=== PATIENT | female | born 1945 | race Hispanic/Latino ===

== ENCOUNTER 2017-03-08 02:51 | Observation (INO) | payer MEDICARE ==
[2017-03-08 03:03] VITALS: BMI 37.8
--- NOTE | 2017-03-08 03:26 | ED PDOC ---
HPI:STROKE - Time Time: 03:00 - Historian Historian: Patient, Family (augustine ) - Chief Complaint Chief Complaint: Weakness (right arm ), Slurred speech - Onset Date: 03/08/17 Time: 02:45 Onset: Just prior to presenting - Timing Timing: Currently Symptomatic - Notes: Notes:: 71yo female presents to the ED, brought in by daughter, with c/o slurred speech and right arm weakness. Daughter reports patient was last seen normal at 2200 last night when she went to bed. Patient woke up at 0245 with slurred speech and right arm weakness. States she had trouble getting up from toilet due to weakness in arm. Arm weakness has improved but still feels as though her speech is slurred. NIHSS Stroke Scale - Date/Time Evaluation Performed Date Performed: 03/08/17 Time Performed: 03:00 When Was NIHSS Performed: Code Stroke - How Severe is the Stroke Level of Consciousness: 0=Alert LOC to Questions: 0=Both comments correct LOC to commands: 0=Obeys both correctly Best Gaze: 0=Normal Visual: 0=No visual loss Facial: 0=Normal Motor Arm - Left: 0=No drift Motor Arm - Right: 0=No drift Motor Leg - Left: 0=No drift Motor Leg - Right: 0=No drift Limb Ataxia: 0=Absent Sensory: 0=Normal Best Language: 0=No aphasia Dysarthia: 1=Mild to moderate slurring Extinction & Inattention (Neglect): 0=Normal, no object Score: 1 rTPA Inclusion/Exclusion - Refusal of Treatment Patient Refused Treatment: No - Inclusion Criteria for Altepase Patient is 18 years or Older: Yes The Clinical Diagnosis of Ischemic Stroke That is Causing a Potentially Disabling Neurological Deficit: No Time of Onset is Well Established to be Less Than 270 Minute Before Treatment Would Begin: No Risk/Benefit Discussed With Patient/Family Member Present: No Past Medical History Reviewed: Historical Data, Nursing Documentation, Vital Signs Vital Signs: Last Vital Signs Temp 98.2 F 03/08/17 03:00 Pulse 85 03/08/17 03:00 Resp 16 03/08/17 03:00 BP 116/68 03/08/17 03:00 Pulse Ox 100 03/08/17 03:00 - Medical History PMH: Anemia, Asthma, COPD, Diabetes (IDDM poor control ), HTN, Hypercholesterolemia, Chronic Kidney Disease (stage 3), TIA - Surgical History Surgical History: Tonsillectomy (1948) - Family History Family History: States: No Known Family Hx - Immunization History Hx Tetanus Toxoid Vaccination: Yes (2011) - Home Medications Home Medications: Ambulatory Orders Medication Instructions Recorded Allopurinol 300 mg PO HS 01/14/14 Aspirin 81 mg PO HS 01/14/14 Cilostazol 100 mg PO BID 01/14/14 Furosemide [Lasix] 80 mg PO QOTHERDAY 01/14/14 Gabapentin [Neurontin] 300 mg PO QAM 01/14/14 Insulin Human NPH/Reg [HumuLIN 12 - 20 unit SC BID PRN 01/14/14 70/30 (NPH/Reg)] Tramadol Hydrochloride [Tramadol] 100 mg PO Q6H PRN 01/14/14 Albuterol Sulfate [Albuterol 3 ml IH Q8H PRN 10/01/14 Sulfate 2.5mg/3 ml 0.083%] Ascorbic Acid [Vitamin C] 1,000 mg PO DAILY 10/01/14 Brimonidine 0.15% [Alphagan P 1 drop RIGHTEYE BID 10/01/14 0.15% Opht] Calcium Acetate [Phoslo] 1,334 mg PO TID 10/01/14 Clopidogrel [Plavix] 75 mg PO HS 10/01/14 Dorzolamide 2% [Trusopt] 1 drop RIGHTEYE TID 10/01/14 Fish Oil 1 cap PO DAILY 10/01/14 Latanoprost 0.005% Opht [Xalatan 1 drop RIGHTEYE HS 10/01/14 Opht] Midodrine [Proamatine] 10 mg PO TID 10/01/14 Vitamin B Complex2 [B Complex] 1 cap PO DAILY 10/01/14 Acetaminophen [Tylenol Extra 1,000 mg PO Q8H PRN 06/08/15 Strength] Albuterol Sulfate [Ventolin Hfa] 2 puff IH Q6H PRN 06/08/15 Cholecalciferol (Vitamin D3) 5,000 unit PO Q48H 06/08/15 [Vitamin D3] Gabapentin [Neurontin] 600 mg PO HS 06/08/15 Insulin Glargine, Recombinan 60 unit SC HS 06/08/15 [Lantus] Vitamin E 1,000 unit PO DAILY 06/08/15 Atorvastatin [Lipitor] 80 mg PO DAILY #0 tab 06/09/15 ALPRAZolam HALF TABLET [Xanax HALF 0.125 mg PO PRN 09/21/16 TABLET] Metoprolol Succinate [Toprol XL] 50 mg PO DAILY 09/21/16 - Allergies Allergies/Adverse Reactions: Allergies Allergy/AdvReac Type Severity Reaction Status Date / Time pregabalin [From Lyrica] Allergy SWELLING Verified 12/04/16 18:03 Review of Systems ROS Statement: Except As Marked, All Systems Reviewed And Found Negative Neurological: Positive for: Weakness (right arm ), Other (slurred speech ) Physical Exam - Reviewed Nursing Documentation Reviewed: Yes Vital Signs Reviewed: Yes - Physical Exam Appears: Positive for: Well, No Acute Distress Head Exam: Positive for: ATRAUMATIC, NORMAL INSPECTION, NORMOCEPHALIC Skin: Positive for: Normal Color, Warm, Dry Eye Exam: Positive for: Normal appearance, EOMI, PERRL ENT: Positive for: Normal ENT Inspection Neck: Positive for: Normal, Painless ROM, Supple Cardiovascular/Chest: Positive for: Regular Rate, Rhythm. Negative for: Murmur , Tachycardia Respiratory: Positive for: Normal Breath Sounds. Negative for: Wheezing, Respiratory Distress Gastrointestinal/Abdominal: Positive for: Normal Exam, Soft. Negative for: Tenderness Back: Positive for: Normal Inspection. Negative for: L CVA Tenderness, R CVA Tenderness Extremity: Positive for: Normal ROM. Negative for: Deformity, Swelling Neurologic/Psych: Positive for: Alert, recreation facility manager II-XII, Oriented, Other (mild slurred speech ). Negative for: Motor/Sensory Deficits, Mood/Affect, Cerebellar Tests, Gait, Aphasia, Facial Droop - Laboratory Results Result Diagrams: 03/08/17 03:31 03/08/17 03:31 - ECG O2 Sat by Pulse Oximetry: 100 Pulse Ox Interpretation: Normal (RA) Medical Decision Making Medical Decision Makin: Impression: TIA vs. CVA Plan: Type and screen CT head EKG Labs CXR IVF reassess 0320: CT head impression: No acute intracranial findings. 0351: Dr. Inman agrees w/ management plan and will see patient tomorrow. Patient admitted to [facility]. Pt's daughter reports that slurred speech is improving and that it is waxing/waning. Scribe Attestation: Documented by J Luis Barrios acting as a scribe for Antonino Grande MD. Provider Scribe Attestation: All medical record entries made by the Scribe were at my direction and personally dictated by me. I have reviewed the chart and agree that the record accurately reflects my personal performance of the history, physical exam, medical decision making, and the department course for this patient. I have also personally directed, reviewed, and agree with the discharge instructions and disposition. Disposition - Clinical Impression Clinical Impression: Weakness of one side of body - Patient ED Disposition Is Patient to be Admitted: Yes - Disposition Disposition Time: 03:51 Condition: STABLE
[2017-03-08 03:37] LABS: BASO # 0.1 K/uL (0.0-0.2); BASO % 1.3 % (0.0-2.0); EOS # 0.2 K/uL (0.0-0.7); HEMATOCRIT 37.7 % (34.0-47.0); LYMPH # 2.2 K/uL (1.0-4.3); LYMPH % 39.5 % (20.0-40.0); MEAN CELL VOLUME 91.5 fl (81.0-99.0); MEAN CORPUSCULAR HEMOGLOBIN 30.1 pg (27.0-31.0); MEAN CORPUSCULAR HGB CONC 32.9 g/dL (33.0-37.0); MEAN PLATELET VOLUME 8.6 fl (7.2-11.7); MONO # 0.7 K/uL (0.0-0.8); MONO % 13.6 % (0.0-10.0); NEUT # 2.3 K/uL (1.8-7.0); NEUT % 42.6 % (50.0-75.0); NRBC % 0.2 % (0.0-0.0); RED CELL DISTRIBUTION WIDTH 15.4 % (11.5-14.5); WHITE BLOOD COUNT 5.5 K/uL (4.8-10.8)
[2017-03-08 03:59] LABS: CHLORIDE 103 mmol/L (98-107); SODIUM 145 mmol/l (132-148)
[2017-03-08 04:01] LABS: ALB/GLOB RATIO 1.4 (1.0-2.1); AST/SGOT 46 U/L (14-36); BILIRUBIN,TOTAL 0.4 mg/dl (0.2-1.3); BLOOD UREA NITROGEN 57 mg/dl (7-17); CARBON DIOXIDE 29 mmol/L (22-30); CHOLESTEROL 150 mg/dL (0-199); GFR AFRICAN-AMERICAN 25
[2017-03-08 04:02] LABS: ALKALINE PHOSPHATASE 71 U/L (38-126); ALT/SGPT 45 U/L (9-52); CALCIUM 10.6 mg/dL (8.4-10.2); GLUCOSE,RANDOM 123 mg/dL (65-105)
[2017-03-08] MEDS ORDERED: ALBUTEROL SULFATE IH PRN (05:02)
[2017-03-08] MEDS ORDERED: Patient's Own Med (Cholecalciferol (Vitamin D3) [Vitamin D3] 5,000 unit) PO SCH (05:15)
[2017-03-08] MEDS ORDERED: Albuterol HFA 90 mcg/actuation (8 g) INH PRN (05:18)
[2017-03-08 05:20] LABS: PARTIAL THROMBOPLASTIN TIME 26.5 SECONDS (23.3-32.5)
--- NOTE | 2017-03-08 05:30 | CP.PCM.HP ---
History of Present Illness - History of Present Illness History of Present Illness: 70F former smoker with PMHx of CKD stage 3, Anemia, Asthma, COPD, IDDM, HTN, peripheral artery disease (2011 R LE balloon angioplasty, 2012 L LE balloon angioplasty), hypercholesterolemia, glaucoma, L eye blindness, TIA (2002: dizziness, vertigo; 2003: dysarthria) presents to the ED, brought in by daughter , with c/o slurred speech and right arm weakness. Daughter reports patient was last seen normal at 2200 last night when she went to bed. Patient woke up at 0245 with slurred speech and right arm weakness. States she had trouble getting up from toilet due to weakness in arm. Arm weakness has improved but still feels as though her speech is slurred. At evaluation of pt, pt speech is still slurred, daughter reports that is not pt's baseline, admits pt has had previous "strokes" in the past but had no deficits. Denies any chest pain, sob, dizziness , light headness, changes in vision. Pt last saw her vascular doctor about a month ago and everything was ok, and is due to see her delivery stock clerk in March PMHx: CKD stage 3, Anemia, Asthma, COPD, IDDM, HTN, hypercholesterolemia, glaucoma, L eye blindness Past Surgical History: tonsillectomy 1947 Allergies: pregabalin (nausea) Medications: Extensive poly-pharmacy Social History: Previous smoker (.5 PPD x > 35 years), social drinking, denies drug use; lives in an apartment, with daughter; Dr. [facility], [facility]io [place] Present on Admission - Present on Admission Any Indicators Present on Admission: Yes History of Uncontrolled Diabetes: Yes Past Patient History - Past Medical History & Family History Past Medical History?: Yes - Past Social History Smoking Status: Former Smoker - CARDIAC Hx Hypercholesterolemia: Yes Hx Hypertension: Yes - PULMONARY Hx Asthma: Yes Hx Chronic Obstructive Pulmonary Disease (COPD): Yes - NEUROLOGICAL Hx Transient Ischemic Attacks (TIA): Yes - HEENT Hx HEENT Problems: Yes Hx Blind: Yes (left eye 2003) Hx Glaucoma: Yes (right eye) - RENAL Hx Chronic Kidney Disease: Yes (stage 3) - ENDOCRINE/METABOLIC Hx Endocrine Disorders: Yes Hx Diabetes Mellitus Type 2: Yes - HEMATOLOGICAL/ONCOLOGICAL Hx Anemia: Yes - INTEGUMENTARY Hx Dermatological Problems: No - GASTROINTESTINAL Hx Gastrointestinal Disorders: No - GENITOURINARY/GYNECOLOGICAL Hx Genitourinary Disorders: No - PSYCHIATRIC Hx Psychophysiologic Disorder: No Hx Substance Use: No - SURGICAL HISTORY Hx Tonsillectomy: Yes (1947) - ANESTHESIA Hx Anesthesia: Yes Hx Anesthesia Reactions: No Hx Malignant Hyperthermia: No Meds Allergies/Adverse Reactions: Allergies Allergy/AdvReac Type Severity Reaction Status Date / Time pregabalin [From Lyrica] Allergy SWELLING Verified 03/08/17 04:17 Physical Exam - Constitutional Appears: No Acute Distress, Older Than Stated Age - Head Exam Head Exam: NORMOCEPHALIC - ENT Exam ENT Exam: Mucous Membranes Moist - Respiratory Exam Respiratory Exam: Clear to Auscultation Bilateral, NORMAL BREATHING PATTERN. absent: Rhonchi, Wheezes - Cardiovascular Exam Cardiovascular Exam: REGULAR RHYTHM, +S1, +S2 Additional comments: No carotid bruits - GI/Abdominal Exam GI & Abdominal Exam: Normal Bowel Sounds, Soft. absent: Tenderness - Extremities Exam Extremities exam: Negative for: calf tenderness, pedal edema - Neurological Exam Neurological exam: Alert, Oriented x3 Additional comments: Hand wool cleaner equal in both arms Strength testing 5/5 in upper and lower extremity - Additional Findings Additional findings: speech is slurred Results - Vital Signs Recent Vital Signs: Last Vital Signs Temp 98.2 F 03/08/17 03:00 Pulse 85 03/08/17 03:00 Resp 16 03/08/17 03:00 BP 116/68 03/08/17 03:00 Pulse Ox 100 03/08/17 04:13 - Labs Result Diagrams: 03/08/17 03:31 03/08/17 03:31 Assessment & Plan - Assessment and Plan (Free Text) Assessment: 71 y/o female with an extensive medical history being admitted for further management of slurring speech; code stroke. Plan: (1) Slurring of speech -code STROKE -onset unclear, neurologic deficit represents departure from baseline function -still present on exam, moderate speech slurring -neurology consulted (Albaro), telemedicine in ED as well -f/u neurology recommendations -f/u carotid and vertebral duplex -CT Head negative -pt already on asa, plavix, lipitor -f/u nursing ED swallow eval -PT eval and treat ordered, OT eval, speech eval -f/u their recommendations -neuro checks q2 -hx of past TIA (2) IDDM (insulin dependent diabetes mellitus) -uncontrolled -sliding scale started -40units am dose resumed -f/u hba1c -lipid studies reviewed, statin therapy on going (3) Peripheral arterial disease -history of PVD -s/p 2011 R balloon angioplasty -s/p 2012 L balloon angioplasty -c/w cilostazol (4) CKD (chronic kidney disease) stage 3, GFR 30-59 ml/min -stable -f/u serum creatinine (5) HTN (hypertension) Home meds resumed Monitor (6) COPD (chronic obstructive pulmonary disease) -home meds resumed -stable, asymptomatic (7) Hypertriglyceride (156, per LIPID panel 03/08/17) c/w lipitor 40 mg cholesterol wnl 150 HDL 69 LDL 50 (8) Low back pain -likely arthritic and obesity related -Resume neurotin -allergic to pregabalin (9) Gout resume allopurinol (10) Prophylactic measure -DVT: Lovenox 40mg daily -GI ppx not indicated Diet- NPO for now, pending ED nurse swallow eval finding, if pt passes diabetic heart healthy
[2017-03-08] MEDS ORDERED: Glucagon Recombinant 1 mg Inj IM PRN (05:32)
[2017-03-08] MEDS ORDERED: Dextrose 50% SYRINGE Inj (50 ml) IV PRN (05:32)
[2017-03-08] MEDS ORDERED: Sodium Chloride 0.9% 1,000 ML IV SCH (06:30)
[2017-03-08] MEDS ORDERED: Insulin Regular 100 units/ml SC SCH (07:30)
--- NOTE | 2017-03-08 07:44 | CARD ---
APPROVED REPORT EKG Measurement Heart [id number] CT 208P64 [id number] <Conclusion> Sinus rhythm Nonspecific ST and T wave abnormality Abnormal ECG
[2017-03-08] MEDS ORDERED: CALCIUM ACETATE 1334 MG PO SCH (09:00)
[2017-03-08] MEDS ORDERED: Cilostazol 100 mg Tab UD PO SCH (09:00)
[2017-03-08] MEDS ORDERED: Omega-3-Acid Ethyl Esters 1 GM Cap PO SCH (09:00)
[2017-03-08] MEDS ORDERED: Patient's Own Med (Brimonidine 0.15% [Alphagan P 0.15% Opht] 1 DROP) RIGHTEYE SCH (09:00)
[2017-03-08] MEDS ORDERED: Multivitamin Vitamin B Complex (Nephro-Vite) Tab PO SCH (09:00)
[2017-03-08] MEDS ORDERED: VITAMIN B COMPLEX PO SCH (09:00)
[2017-03-08] MEDS ORDERED: MIDODRINE 10 MG PO SCH (09:00)
[2017-03-08] MEDS ORDERED: Brimonidine 0.2% 50 DROP/5 ML BOTTLE OD SCH (09:00)
[2017-03-08] MEDS ORDERED: Insulin Detemir 100 Units/ml Inj SC SCH (09:00)
[2017-03-08] MEDS ORDERED: FISH OIL PO SCH (09:00)
[2017-03-08] MEDS ORDERED: VITAMIN E 1000 UNIT PO SCH (09:00)
[2017-03-08] MEDS ORDERED: Dorzolamide 2% Ophth Soln OD SCH (09:00)
[2017-03-08] MEDS ORDERED: INSULIN GLARGINE RECOMBINA SC SCH (09:00)
[2017-03-08] MEDS ORDERED: Enoxaparin 30 mg Syringe SC SCH (09:00)
--- NOTE | 2017-03-08 09:07 | CT ---
PROCEDURE: CT HEAD WITHOUT CONTRAST. HISTORY: code stroke COMPARISON: None available. TECHNIQUE: Axial computed tomography images were obtained through the head/brain without intravenous contrast. Radiation dose: Total exam DLP = 840 mGy-cm. This CT exam was performed using one or more of the following dose reduction techniques: Automated exposure control, adjustment of the mA and/or kV according to patient size, and/or use of iterative reconstruction technique. FINDINGS: HEMORRHAGE: No intracranial hemorrhage. BRAIN: No mass effect or edema. Old right basal ganglia lacunar infarct. Old left centrum semiovale lacunar infarct. VENTRICLES: Unremarkable. No hydrocephalus. CALVARIUM: Unremarkable. PARANASAL SINUSES: Unremarkable as visualized. No significant inflammatory changes. MASTOID AIR CELLS: Unremarkable as visualized. No inflammatory changes. OTHER FINDINGS: None. IMPRESSION: No intracranial hemorrhage.
--- NOTE | 2017-03-08 10:18 | RAD ---
HISTORY: R sided deficits COMPARISON: No prior. FINDINGS: LUNGS: No active pulmonary disease. PLEURA: No significant pleural effusion identified, no pneumothorax apparent. CARDIOVASCULAR: Normal. OSSEOUS STRUCTURES: No significant abnormalities. VISUALIZED UPPER ABDOMEN: Normal. OTHER FINDINGS: None. IMPRESSION: No active disease.
--- NOTE | 2017-03-08 10:42 | US ---
PROCEDURE: Carotid vertebral duplex sonography HISTORY: cva workup COMPARISON: 06/08/2015. TECHNIQUE: Grayscale, color Doppler and spectral Doppler assessment of the carotid system bilaterally. This includes common carotid, internal carotid arteries Vertebral artery assessment with respect to direction of flow (antegrade or retrograde) FINDINGS: RIGHT carotid system: Assessment of plaque: Heterogeneous plaque formation. Peak systolic ICA velocity: 131.9 cm/sec End-diastolic velocity: 21.5 cm/sec ICA/CCA ratio: 1.7 Vertebral artery flow: Antegrade LEFT carotid system: Assessment of plaque: Heterogeneous plaque formation. Peak systolic ICA velocity: 144.5 cm/sec End-diastolic velocity: 18.0 cm/sec ICA/CCA ratio: 1.6 Vertebral artery flow: Antegrade IMPRESSION: Right ICA degree of stenosis: 50- 69%. Progressive disease right ICA. Left ICA degree of stenosis: 50- 69%. Progressive disease left ICA. Reference Internal Carotid Artery (ICA) Peak Systolic Velocity (PSV) for above: 1. Less than 50% stenosis less than 125 cm/s peak systolic velocity 2. 50-69% stenosis 125-230cm/s peak systolic velocity 3. Greater than 70% but less than near occlusion greater than 230 cm/s peak systolic velocity
[2017-03-08 12:45] VITALS: O2SAT 97
--- NOTE | 2017-03-08 14:05 | CON ---
DATE: 03/08/2017 CHIEF COMPLAINT: Slurred speech, transient right-sided weakness. HISTORY OF PRESENT ILLNESS: This is a 71-year-old woman who is well known to me from the past in 201 5 with a history of left knott radiata infarct with some mild residual right-sided weakness and slow ing, history of uncontrolled diabetes with last elevated A1c of 11.8. Currently has been in the 7s. Chronic kidney disease stage III, anemia, COPD, asthma, hypertension, peripheral arterial disease on cilostazol, hypercholesterolemia, glaucoma, left eye blindness, history of transient ischemic attack, who was brought in by her daughter because she was noticed to have some slurred speech and right arm weakness and difficulty getting up from the toilet due to right arm weakness. Now her right arm wea kness has improved and slurring of her speech has improved, but slightly dysarthric. I think her spe ech is more pressured rather than dysarthric at this time. There is no pronator drift seen. She has residual right finger tap slowing from prior CVA. She is on cilostazol, aspirin and Plavix. I tor mmend her being just on Plavix since cilostazol is for peripheral vascular disease and Plavix is for stroke prevention. No acute events overnight. MRI of the brain pending. Carotid Doppler showed 50% -69% bilateral ICA stenosis. She has a history of right lower extremity balloon angioplasty as well as left lower extremity balloon angioplasty in 2011 and 2012. No headaches at this time. No change in any of her weakness at this time. PAST MEDICAL HISTORY: Chronic kidney disease stage III, anemia, status post chronic obstructive pulm onary disease, insulin-dependent diabetes mellitus, hypertension, hypercholesterolemia, glaucoma, lef t eye blindness, history left coronary artery infarct in 2014. PAST SURGICAL HISTORY: Tonsillectomy in 1948. ALLERGIES: ALLERGIC TO PREGABALIN CAUSING NAUSEA. HOME MEDICATIONS: Reviewed via nurse's reconciliation sheet. SOCIAL HISTORY: She is a previous smoker, smoked half pack per day for more than 35 years. Social d shante. Denies any illicit drug use. Lives in apartment with daughter. REVIEW OF SYSTEMS: A 14-point review of systems is negative except as in the HPI. PHYSICAL EXAMINATION: VITAL SIGNS: Temperature 98.4, pulse rate of 77, blood pressure 136/71, respiratory rate 14, and oxy gen saturation 97% on room air. GENERAL: The patient is sitting up in bed in no acute distress. HEENT: Atraumatic, normocephalic. PERRLA. Extraocular muscles intact. NECK: Supple, no JVD, no adenopathy noted. LUNGS: Clear to auscultation. No adventitious sounds. HEART: S1, S2, normal rate and rhythm. No murmurs, rubs, or gallops. ABDOMEN: Soft, nontender, nondistended. Bowel sounds are present. EXTREMITIES: No clubbing, no cyanosis. Peripheral pulses 2+ bilaterally. NEUROLOGIC: The patient is alert, oriented to person, place, month and year. Speech is slightly dys arthric, but no aphasia noted. MOTOR EXAM: No pronator drift. tone is slightly increased throughout, has decreased right epralta d finger tap compared to the left. Moves all extremities equally. Strength is 5/5 in both upper and lower extremities. Toes are downgoing bilaterally. SENSORY: Decreased light touch and pinprick up to the calves bilaterally. Diffuse vibration of the toes. Proprioception intact bilaterally. GAIT: Deferred for now. LABORATORY DATA: Sodium is 145, potassium 4, chloride 102, carbon dioxide 29, BUN of 57, creatinine 2.3, random glucose of 123, A1c is 7.8, triglycerides 156. ASSESSMENT AND PLAN: This is a 71-year-old woman with history of chronic kidney disease stage III, a nemia, asthma, chronic obstructive pulmonary disease, insulin-dependent diabetes mellitus, uncontroll ed, recent A1c 7.8, hypertension, peripheral vascular disease, left eye blindness, history of left co luis radiata infarct in 2015, came in with some transient right arm weakness and slurred speech, whic h is currently back to baseline. She still has some very mild dysarthria. At this time, recommend: 1. Instead of aspirin, just continue her on Plavix 75 mg for stroke prevention, in addition she can be on her cilostazol for peripheral vascular disease and continue with Lipitor 80 mg p.o. daily for 2 1 days for dyslipidemia and can bring it down to 40 eventually. 2. Diabetic education given. Keep her blood sugar between 140-180 and advise diabetic diet and exer cise. 3. Follow with nephrology in terms of her BUN and creatinine elevation. 4. Get physical therapy evaluation. She can follow up with me in the office. She already has an ap pointment. Get physical therapy evaluation. No further neurologic workup needed at this time. She just needs an MRI of the brain which is pending and can follow up in the office. Once again, thank you for this consult. Alton Inman MD cc: [id number] TT: 03/08/2017 14:04:30 Confirmation # [id number] Dictation # [id number] meghan
--- NOTE | 2017-03-08 14:35 | MRI ---
PROCEDURE: MRI BRAIN WITHOUT CONTRAST HISTORY: CVA COMPARISON: Noncontrast head CT from 03/08/2017 TECHNIQUE: Multiplanar, multisequence MR images of the brain were obtained without intravenous contrast enhancement. FINDINGS: HEMORRHAGE: No acute intracranial hemorrhage. DWI: There is an acute infarction in the left posterior insular cortex. There are small foci of acute infarction in the posterior parietal subcortical white matter. BRAIN PARENCHYMA: There is an old hemorrhagic infarction in the right basal ganglia. There is also an old infarction in the right anterior knott radiata with ex vacuo dilatation of the right lateral ventricle There is also an old infarction in the left basal ganglia. There are mild chronic microangiopathic changes. There is no mass, mass effect or abnormal extra-axial fluid collection. The midline sagittal structures are normal. VENTRICLES: There is moderate age-related global parenchymal volume loss and proportionate enlargement of the ventricles and cortical sulci. CRANIUM: There is normal bone marrow signal pattern. ORBITS: The right globe is normal. 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 PARANASAL SINUSES/MASTOIDS: Predominantly clear. VASCULAR SYSTEM: There are normal signal voids in the larger intracranial arteries. OTHER FINDINGS: None. IMPRESSION: 1. Acute infarction in the left posterior insular cortex and small foci of acute infarction in the posterior parietal subcortical white matter. 2. Old infarctions in the right anterior knott radiata and left basal ganglia. Old hemorrhagic infarction in the right basal ganglia. 3. Mild chronic microangiopathic changes and moderate age-related global parenchymal volume loss. Critical findings were discussed with BRANDON Walls on 03/08/2017 at 2:30 p.m.
[2017-03-08 16:21] VITALS: BP 115/71; PULSE 85; RESP 18; TEMP 98.6
--- NOTE | 2017-03-08 17:14 | CP.PCM.DIS ---
Provider - Provider Date of Admission: 03/08/17 03:57 Attending physician: Peace Madrid MD Primary care physician: Isadora Miranda MD Consults: Dr Inman(Neurology) Time Spent in preparation of Discharge (in minutes): 30 Hospital Course - Lab Results Lab Results: Most Recent Lab Values WBC 5.5 K/uL (4.8-10.8) 03/08/17 03:31 RBC 4.12 Mil/uL (3.80-5.20) 03/08/17 03:31 Hgb 12.4 g/dL (12.0-16.0) 03/08/17 03:31 Hct 37.7 % (34.0-47.0) 03/08/17 03:31 MCV 91.5 fl (81.0-99.0) 03/08/17 03:31 MCH 30.1 pg (27.0-31.0) 03/08/17 03:31 MCHC 32.9 g/dL (33.0-37.0) L 03/08/17 03:31 RDW 15.4 % (11.5-14.5) H 03/08/17 03:31 Plt Count 220 K/uL (130-400) 03/08/17 03:31 MPV 8.6 fl (7.2-11.7) 03/08/17 03:31 Neut % (Auto) 42.6 % (50.0-75.0) L 03/08/17 03:31 Lymph % (Auto) 39.5 % (20.0-40.0) 03/08/17 03:31 [place] % (Auto) 13.6 % (0.0-10.0) H 03/08/17 03:31 Eos % (Auto) 3.0 % (0.0-4.0) 03/08/17 03:31 Baso % (Auto) 1.3 % (0.0-2.0) 03/08/17 03:31 Neut # 2.3 K/uL (1.8-7.0) 03/08/17 03:31 Lymph # 2.2 K/uL (1.0-4.3) 03/08/17 03:31 [place] # 0.7 K/uL (0.0-0.8) 03/08/17 03:31 Eos # 0.2 K/uL (0.0-0.7) 03/08/17 03:31 Baso # 0.1 K/uL (0.0-0.2) 03/08/17 03:31 PT 9.5 SECONDS (9.6-11.2) L 03/08/17 03:31 INR 0.91 (0.92-1.08) L 03/08/17 03:31 APTT 26.5 SECONDS (23.3-32.5) 03/08/17 03:31 Sodium 145 mmol/l (132-148) 03/08/17 03:31 Potassium 4.0 MMOL/L (3.6-5.0) 03/08/17 03:31 Chloride 103 mmol/L (98-107) 03/08/17 03:31 Carbon Dioxide 29 mmol/L (22-30) 03/08/17 03:31 Anion Gap 17 (10-20) 03/08/17 03:31 BUN 57 mg/dl (7-17) H 03/08/17 03:31 Creatinine 2.3 mg/dL (0.7-1.2) H 03/08/17 03:31 Est GFR ( Amer) 25 03/08/17 03:31 Est GFR (Non-Af Amer) 21 03/08/17 03:31 Random Glucose 123 mg/dL (65-105) H 03/08/17 03:31 Hemoglobin A1c 7.8 % (4.2-6.5) H D 03/08/17 03:31 Calcium 10.6 mg/dL (8.4-10.2) H 03/08/17 03:31 Total Bilirubin 0.4 mg/dl (0.2-1.3) 03/08/17 03:31 AST 46 U/L (14-36) H D 03/08/17 03:31 ALT 45 U/L (9-52) 03/08/17 03:31 Alkaline Phosphatase 71 U/L (38-126) 03/08/17 03:31 Troponin I < 0.0120 ng/mL (0.00-0.120) 03/08/17 03:31 Total Protein 8.0 G/DL (6.3-8.2) 03/08/17 03:31 Albumin 4.6 g/dL (3.5-5.0) 03/08/17 03:31 Globulin 3.4 gm/dL (2.2-3.9) 03/08/17 03:31 Albumin/Globulin Ratio 1.4 (1.0-2.1) 03/08/17 03:31 Triglycerides 156 mg/DL (0-149) H D 03/08/17 03:31 Cholesterol 150 mg/dL (0-199) 03/08/17 03:31 LDL Cholesterol Direct 50 mg/dL (0-129) 03/08/17 03:31 HDL Cholesterol 69 MG/DL (30-70) 03/08/17 03:31 Blood Type A POSITIVE 03/08/17 03:31 Blood Type Confirm A POSITIVE 03/08/17 06: Antibody Screen Negative 03/08/17 03:31 BBK History Checked No verified bt 03/08/17 03:31 - Hospital Course Hospital Course: 70F former smoker with PMHx of CKD stage 3, Anemia, Asthma, COPD, IDDM, HTN, peripheral artery disease (2011 R LE balloon angioplasty, 2012 L LE balloon angioplasty), hypercholesterolemia, glaucoma, L eye blindness, TIA (2002: dizziness, vertigo; 2003: dysarthria) presents to the ED, brought in by daughter , with c/o slurred speech and right arm weakness. WHen patient was evalauted at ED she has mild dysartria but no muscle weakness noticed. Patient head CT was WNL but brain MRI showed acute infarct(Please see full report). She was evaluated by Neurology(Dr Inman) who was made aware of the MRI results and recommended patient could be DC home and F/U with him as outpatient. She will also f/u with PMD(Dr Miranda) and Cardiology(Dr Monk) DC meds: Allopurinol 300 mg PO HS Cilostazol 100 mg PO BID Furosemide [Lasix] 80 mg PO QOTHERDAY Gabapentin [Neurontin] 300 mg PO QAM Insulin Human NPH/Reg [HumuLIN 12 - 20 unit SC BID PRN 70/30 (NPH/Reg)] Albuterol Sulfate [Albuterol 3 ml IH Q8H PRN Sulfate 2.5mg/3 ml 0.083%] Ascorbic Acid [Vitamin C] 1,000 mg PO DAILY Brimonidine 0.15% [Alphagan P 1 drop RIGHTEYE BID 0.15% Opht] Calcium Acetate [Phoslo] 1,334 mg PO TID Clopidogrel [Plavix] 75 mg PO HS Dorzolamide 2% [Trusopt] 1 drop RIGHTEYE TID Fish Oil 1 cap PO DAILY Latanoprost 0.005% Opht [Xalatan 1 drop RIGHTEYE HS Opht] Midodrine [Proamatine] 10 mg PO TID Vitamin B Complex2 [B Complex] 1 cap PO DAILY Acetaminophen [Tylenol Extra 1,000 mg PO Q8H PRN Strength] Albuterol Sulfate [Ventolin Hfa] 2 puff IH Q6H PRN Cholecalciferol (Vitamin D3) 5,000 unit PO Q48H [Vitamin D3] Gabapentin [Neurontin] 600 mg PO HS 0 Insulin Glargine, Recombinan 60 unit SC HS [Lantus] Vitamin E 1,000 unit PO DAILY Atorvastatin [Lipitor] 80 mg PO DAILY x 21 days. Can be decrease to 40mg daily after ALPRAZolam HALF TABLET [Xanax HALF 0.125 mg PO PRN Metoprolol Succinate [Toprol XL] 50 mg PO DAILY Discharge Exam - Head Exam Head Exam: NORMOCEPHALIC - Eye Exam Eye Exam: PERRL (R/eye. Left eye blindness) - ENT Exam ENT Exam: Mucous Membranes Moist - Respiratory Exam Respiratory Exam: Clear to PA & Lateral, NORMAL BREATHING PATTERN - Cardiovascular Exam Cardiovascular Exam: REGULAR RHYTHM, +S1, +S2. absent: Gallop - GI/Abdominal Exam GI & Abdominal Exam: Unremarkable. absent: Distended - Neurological Exam Neurological exam: Alert, Oriented x3 Additional comments: Dysarthria: mild. No motor impairment in Upper or Lower ext at this time. - Psychiatric Exam Psychiatric exam: Normal Affect, Normal Mood - Skin Skin Exam: Normal Color, Warm Discharge Plan - Follow Up Plan Condition: STABLE Disposition: HOME/ ROUTINE Instructions: Ischemic Stroke (DC) Additional Instructions: F/U with Dr. Miranda at [facility] within 1 week. F/U with Neurologist recommended F/U with Natural Science Manager dr. Monk. if any worsening of symptoms return to ED. Referrals: Isadora Miranda MD [Primary Care Provider] - Alton Inman MD [Staff Provider] -
[2017-03-08] MEDS ORDERED: ASPIRIN 81 MG PO SCH (22:00)
[2017-03-08] MEDS ORDERED: Latanoprost 0.005% Opht SOUTION OD SCH (22:00)
[2017-03-08] MEDS ORDERED: ALLOPURINOL 300 MG PO SCH (22:00)
== END 2017-03-08 16:59 | disposition home or self-care (01) ==
LOC: H.ER 02:51 → H.ERHOLD 03:57
PROVIDERS: ADMIT Family Medicine Geriatric Medicine; ATTEND Family Medicine Geriatric Medicine
DX: I63.9 Cerebral infarction, unspecified (principal); I69.322 Dysarthria following cerebral infarction; I69.351 Hemiplegia and hemiparesis following cerebral infarction affecting right dominant side; E11.22 Type 2 diabetes mellitus with diabetic chronic kidney disease; I12.9 Hypertensive chronic kidney disease with stage 1 through stage 4 chronic kidney disease, or unspecified chronic kidney disease; N18.3 Chronic kidney disease, stage 3 (moderate); Z79.4 Long term (current) use of insulin; I73.9 Peripheral vascular disease, unspecified; J44.9 Chronic obstructive pulmonary disease, unspecified; Z87.891 Personal history of nicotine dependence; D64.9 Anemia, unspecified; E78.00 Pure hypercholesterolemia, unspecified; H40.9 Unspecified glaucoma; H54.42 Blindness, left eye, normal vision right eye; E11.65 Type 2 diabetes mellitus with hyperglycemia
CPT/HCPCS: 70450; 70551; 71010; 80053; 80061; 82948; 83036; 84484; 85025; 85610; 85730; 86850; 86900; 92526; 92610; 93005; 93880; 97161; 99285; G0378; G8978; G8979; G8980; G8996; G8997; G8998; J7040

== ENCOUNTER 2017-03-10 09:22 | Inpatient (IN) | payer MEDICARE ==
[2017-03-10 09:35] VITALS: BMI 37.8
[2017-03-10 09:48] LABS: BASO # 0.1 K/uL (0.0-0.2); BASO % 0.7 % (0.0-2.0); EOS # 0.1 K/uL (0.0-0.7); EOS % 0.9 % (0.0-4.0); HEMATOCRIT 38.8 % (34.0-47.0); LYMPH # 2.6 K/uL (1.0-4.3); MEAN CELL VOLUME 91.9 fl (81.0-99.0); MEAN CORPUSCULAR HEMOGLOBIN 29.5 pg (27.0-31.0); MEAN CORPUSCULAR HGB CONC 32.1 g/dL (33.0-37.0); MEAN PLATELET VOLUME 8.3 fl (7.2-11.7); MONO # 0.9 K/uL (0.0-0.8); NEUT # 9.4 K/uL (1.8-7.0); NEUT % 71.4 % (50.0-75.0); RED CELL DISTRIBUTION WIDTH 15.7 % (11.5-14.5); WHITE BLOOD COUNT 13.1 K/uL (4.8-10.8)
--- NOTE | 2017-03-10 09:51 | CT ---
PROCEDURE: CT HEAD WITHOUT CONTRAST. HISTORY: fall weakness COMPARISON: 03/08/2017 TECHNIQUE: Axial computed tomography images were obtained through the head/brain without intravenous contrast. Radiation dose: Total exam DLP = 862.03 mGy-cm. This CT exam was performed using one or more of the following dose reduction techniques: Automated exposure control, adjustment of the mA and/or kV according to patient size, and/or use of iterative reconstruction technique. FINDINGS: HEMORRHAGE: No intracranial hemorrhage. BRAIN: No intracranial mass. Acute infarct left frontal with sparing overlying cortex. This extends into the left knott radiata. Small old left thalamic lacune. Old right basal ganglia infarct extending into right knott radiata. Unchanged over multiple prior examinations. VENTRICLES: No hydrocephalus. Mild ex vacuo dilatation of the frontal horn right lateral ventricle secondary to the old right knott radiata infarct. CALVARIUM: Unremarkable. PARANASAL SINUSES: Unremarkable as visualized. No significant inflammatory changes. MASTOID AIR CELLS: Unremarkable as visualized. No inflammatory changes. OTHER FINDINGS: None. IMPRESSION: Probable acute left frontal infarct extending into left coronal radiata. Sparing of overlying cortex is noted. Old left thalamic lacune. Old right basal ganglia infarct extending into right knott radiata with ex vacuo dilatation of frontal horn, right lateral ventricle. No acute intracranial hemorrhage. The findings this examination were discussed by telephone with Dr. Fraser at 9:47 a.m. on 03/10/2017.
[2017-03-10 09:57] LABS: ALB/GLOB RATIO 1.4 (1.0-2.1); BILIRUBIN,TOTAL 0.5 mg/dl (0.2-1.3); CALCIUM 10.4 mg/dL (8.4-10.2); POTASSIUM 3.7 MMOL/L (3.6-5.0); TOTAL PROTEIN 7.6 G/DL (6.3-8.2)
[2017-03-10 10:07] LABS: TROPONIN I 0.02 ng/mL (0.00-0.120)
--- NOTE | 2017-03-10 10:34 | RAD ---
HISTORY: code stroke COMPARISON: 03/08/2017 FINDINGS: LUNGS: No active pulmonary disease. PLEURA: No significant pleural effusion identified, no pneumothorax apparent. CARDIOVASCULAR: Normal. OSSEOUS STRUCTURES: No significant abnormalities. VISUALIZED UPPER ABDOMEN: Normal. OTHER FINDINGS: None. IMPRESSION: No active disease.
--- NOTE | 2017-03-10 11:00 | ED PDOC ---
HPI:STROKE - Historian Historian: Patient, Family, EMS (According to EMS, patient with h/o CVA with right sided weakness fell this morning and family felt that she is not safe at home. Patient was discharged home from the ER after she had her first episode of weakness. She was discharged after MRI of brain was done. ) - Chief Complaint Chief Complaint: Weakness NIHSS Stroke Scale - Date/Time Evaluation Performed When Was NIHSS Performed: Baseline - How Severe is the Stroke Level of Consciousness: 0=Alert LOC to Questions: 0=Both comments correct LOC to commands: 0=Obeys both correctly Best Gaze: 0=Normal Visual: 0=No visual loss Facial: 2=Partial (lower face paralysis) Motor Arm - Left: 0=No drift Motor Arm - Right: 1=Drift noted before 10 sec Motor Leg - Left: 0=No drift Motor Leg - Right: 1=Drift before 5 sec Limb Ataxia: 0=Absent Sensory: 0=Normal Best Language: 1=Mild to moderate aphasia Dysarthia: 2=Severe, near unintelligible or worse Extinction & Inattention (Neglect): 0=Normal, no object Score: 7 rTPA Inclusion/Exclusion - Refusal of Treatment Patient Refused Treatment: No - Inclusion Criteria for Altepase Patient is 18 years or Older: Yes The Clinical Diagnosis of Ischemic Stroke That is Causing a Potentially Disabling Neurological Deficit: Yes Time of Onset is Well Established to be Less Than 270 Minute Before Treatment Would Begin: Yes Risk/Benefit Discussed With Patient/Family Member Present: Yes - Exclusion Criteria for Altepase Uncontrolled Hypertension at Time of Treatment (Systolic BP above 185 or Diastolic BP above 110 mmHg): No Active Internal Bleeding: No Known Bleeding Diathesis Including but Not Limited to: Platelets Below 100,000/ mm,PTT Above 40 sec After Heparin Use, Current Use of Oral Anitcoagulant With INR Greater Than 1.7 or PT Greater Than 15 secs: No Evidence of an Intracranial Hemorrhage: No Evidence of Major Acute Infarct With Signs Greater Than 1/3 MCA Territory: No Suspicion of Subarachnoid Hemorrhage on Pretreatment Evaluation Even if CT Head Negative For Hemorrhage: No - Warning to TPA With Conditions Following Conditions Weighed Against Anticipated Benefit: No Additional Condition (For 3-4.5 Hour Window): Prior Stroke and Diabetes Past Medical History Reviewed: Historical Data, Nursing Documentation, Vital Signs Vital Signs: Last Vital Signs Temp Pulse 82 03/10/17 10:22 Resp 14 03/10/17 10:22 BP 160/87 H 03/10/17 10:22 Pulse Ox 98 03/10/17 10:22 - Medical History PMH: Anemia, Asthma, COPD, Diabetes (IDDM poor control ), HTN, Hypercholesterolemia, Chronic Kidney Disease (stage 3), TIA - Surgical History Surgical History: Tonsillectomy (1948) - Family History Family History: States: Unknown Family Hx - Immunization History Hx Tetanus Toxoid Vaccination: Yes (2011) - Home Medications Home Medications: Ambulatory Orders Medication Instructions Recorded Cilostazol 100 mg PO BID 01/14/14 Furosemide [Lasix] 80 mg PO Q72H 01/14/14 Ascorbic Acid [Vitamin C] 1,000 mg PO DAILY 10/01/14 Brimonidine 0.15% [Alphagan P 1 drop RIGHTEYE TID 10/01/14 0.15% Opht] Clopidogrel [Plavix] 75 mg PO HS 10/01/14 Dorzolamide 2% [Trusopt] 1 drop RIGHTEYE TID 10/01/14 Latanoprost 0.005% Opht [Xalatan 1 drop RIGHTEYE HS 10/01/14 Opht] Midodrine [Proamatine] 10 mg PO TID 10/01/14 Cholecalciferol (Vitamin D3) 5,000 unit PO Q48H 06/08/15 [Vitamin D3] Cetirizine HCl [Zyrtec] 10 mg PO HS 03/08/17 Gabapentin [Neurontin] 300 mg PO TID 03/08/17 Insulin Glargine, Recombina 60 units SC QAM 03/08/17 [Lantus] Metoprolol Tartrate [Lopressor] 50 mg PO Q12 03/08/17 Acetaminophen [Tylenol Extra 1,000 mg PO Q8H PRN 03/10/17 Strength] Albuterol HFA [Ventolin HFA 90 2 puff IH Q4H PRN 03/10/17 mcg/actuation (8 g)] Allopurinol [Zyloprim] 300 mg PO HS 03/10/17 Alprazolam [Xanax] 0.25 mg PO HS 03/10/17 Aspirin [Ecotrin] 81 mg PO DAILY 03/10/17 Atorvastatin [Lipitor] 80 mg PO HS 03/10/17 Biotin [Biotin] 1 tab PO DAILY 03/10/17 Calcium Acetate [Phoslo] 1,334 mg PO WM 03/10/17 Ferrous Sulfate [Feosol] 325 mg PO DAILY 03/10/17 Insulin Lispro [humALOG] 10 unit SC BRK 03/10/17 Insulin Lispro [humALOG] 14 unit SC ACL 03/10/17 Insulin Lispro [humALOG] 16 unit SC DIN 03/10/17 Ubidecarenone [Coenzyme Q10] 400 mg PO DAILY 03/10/17 Vitamin B Complex [Super B-50 1 cap PO DAILY 03/10/17 Complex] Vitamin E [Vitamin E] 1,000 unit PO DAILY 03/10/17 traMADol [Ultram] 50 mg PO Q6H PRN 03/10/17 - Allergies Allergies/Adverse Reactions: Allergies Allergy/AdvReac Type Severity Reaction Status Date / Time pregabalin [From Lyrica] Allergy SWELLING Verified 03/08/17 04:17 Review of Systems ROS Statement: Except As Marked, All Systems Reviewed And Found Negative Constitutional: Negative for: Fever Gastrointestinal: Negative for: Nausea, Vomiting Musculoskeletal: Negative for: Arm Pain, Leg Pain Neurological: Positive for: Weakness, Incoordination, Change in Speech. Negative for: Seizures, Headache, Other Physical Exam - Reviewed Nursing Documentation Reviewed: Yes Vital Signs Reviewed: Yes - Physical Exam Appears: Positive for: Well, Non-toxic, No Acute Distress Head Exam: Positive for: ATRAUMATIC, NORMAL INSPECTION, NORMOCEPHALIC Skin: Positive for: Normal Color, Warm, DRY Eye Exam: Positive for: EOMI, Normal appearance, PERRL ENT: Positive for: Normal ENT Inspection Neck: Positive for: Normal, Painless ROM Cardiovascular/Chest: Positive for: Regular Rate, Rhythm Respiratory: Positive for: CNT, Normal Breath Sounds Gastrointestinal/Abdominal: Positive for: Normal Exam, Bowel Sounds, Soft Back: Positive for: Normal Inspection Extremity: Positive for: Normal ROM Neurologic/Psych: Positive for: Alert, Oriented, Aphasia. Negative for: paver installer II- XII - Laboratory Results Result Diagrams: 03/10/17 09:42 03/10/17 09:42 - ECG O2 Sat by Pulse Oximetry: 98 Medical Decision Making Medical Decision Makin:48a - Case d/w Dr. Inman. CT findings reviewed. Feels that findings are consistent with her CVA from 2 days ago. NO Acute intervention at present. case d/w FP resident for admission given the need for PT to be started and continued. Since she has been home she has not been contacted by PT yet. Disposition - Clinical Impression Clinical Impression: Weakness due to cerebrovascular accident - Patient ED Disposition Is Patient to be Admitted: Yes Doctor Will See Patient In The: Hospital - Disposition Disposition: Transfer of Care Disposition Time: 11:45 Instructions: Weakness (ED) - POA Present On Arrival: None
[2017-03-10] MEDS ORDERED: Dextrose 50% SYRINGE Inj (50 ml) IV PRN (15:15)
[2017-03-10] MEDS ORDERED: Glucagon Recombinant 1 mg Inj IM PRN (15:15)
--- NOTE | 2017-03-10 16:03 | CP.PCM.HP ---
History of Present Illness - History of Present Illness History of Present Illness: 71 yr old F brought into [facility] ED by EMS after a fall at home at 7:30am today, daughter was with her at the time, denies any LOC or trauma to head and states she tried helping her mom up from the floor for 1 hr with no success as pt is very weak s/p recent discharge from [facility] on 03/08/17 for CVA . Daughter reports she checked pt's blood sugar and it was 51 mg/dL, she has decreased appetite x 3 days. Denies chest pain, SOB, nausea, vomiting, diarrhea, dizziness or changes in vision. Patient is a former smoker with a PMHx of CKD stage 3, Anemia , Asthma, COPD, IDDM, HTN, peripheral artery disease (2011 R LE balloon angioplasty, 2012 L LE balloon angioplasty), hypercholesterolemia, glaucoma, L eye blindness, TIA (2002: dizziness, vertigo; 2003: dysarthria). Since her discharge from [facility] on 03/08/17, her speech has worsened and she is currently nonverbal (demonstrates apraxia), her right arm weakness worsened and pt cannot control right arm movements, decreased appetite, and has difficulty transferring from wheelchair to bed/chair with 2 falls at home in the last 2 days. She lives alone with her daughter. PMD: Dr. Miranda (last clinic visit 10/11/16) PMHx: CKD stage 3, Anemia, Asthma, COPD, IDDM, HTN, hypercholesterolemia, glaucoma, L eye blindness SurgHx: tonsillectomy 1947 Allergies: pregabalin (nausea) Medications: Extensive poly-pharmacy (see home meds, ECW) Social History: Previous smoker (0.5 PPD x > 35 years), social drinking, denies drug use, lives in an apartment, with daughter ROS: Negative except for what is mentioned in the HPI PE: General: Obese female, nonverbal, cooperative with exam, follows commands, in no acute distress HEENT: + mild facial droop, atraumatic, normocephalic, mucous membranes moist Cardiac: S1 S2 normal, no m/r/g Lungs: CTABL, no ronchi, no wheezing Abd: obese, BS+, soft, NT, ND Ext: right arm dyskinesia and weakness, strength 5/5 and full ROM in LUE and b/ l LE Neuro: apraxia, sensation wnl and equal bilaterally ED Course: -elevated systolic BP 160 mmHg -WBC 13.1, afebrile -blood culture sent, UA sent -CT head: Probable acute left frontal infarct extending into left coronal radiata. No acute ICH. (see full report) -CXR: No active pulmonary disease Present on Admission - Present on Admission Any Indicators Present on Admission: No History of DVT/PE: No History of Uncontrolled Diabetes: No Urinary Catheter: No Decubitus Ulcer Present: No Past Patient History - Past Medical History & Family History Past Medical History?: Yes - Past Social History Smoking Status: Former Smoker - CARDIAC Hx Cardiac Disorders: Yes - PULMONARY Hx Respiratory Disorders: No - NEUROLOGICAL Hx Neurological Disorder: Yes - HEENT Hx HEENT Problems: Yes - RENAL Hx Chronic Kidney Disease: Yes (stage 3) - ENDOCRINE/METABOLIC Hx Endocrine Disorders: Yes - HEMATOLOGICAL/ONCOLOGICAL Hx Blood Disorders: No - INTEGUMENTARY Hx Dermatological Problems: No - MUSCULOSKELETAL/RHEUMATOLOGICAL Hx Musculoskeletal Disorders: Yes - GASTROINTESTINAL Hx Gastrointestinal Disorders: No - GENITOURINARY/GYNECOLOGICAL Hx Genitourinary Disorders: No - PSYCHIATRIC Hx Psychophysiologic Disorder: No - SURGICAL HISTORY Hx Tonsillectomy: Yes (1947) - ANESTHESIA Hx Anesthesia: Yes Hx Anesthesia Reactions: No Hx Malignant Hyperthermia: No Meds Allergies/Adverse Reactions: Allergies Allergy/AdvReac Type Severity Reaction Status Date / Time pregabalin [From Lyrica] Allergy SWELLING Verified 03/08/17 04:17 Results - Vital Signs Recent Vital Signs: Last Vital Signs Temp 98.2 F 03/10/17 13:00 Pulse 94 H 03/10/17 13:00 Resp 14 03/10/17 13:00 BP 144/79 03/10/17 13:00 Pulse Ox 98 03/10/17 12:29 - Labs Result Diagrams: 03/10/17 09:42 03/10/17 09:42 Assessment & Plan - Assessment and Plan (Free Text) Assessment: Assessment and Plan: 71 yr old F s/p 2 falls at home admitted for worsening speech (apraxia) and weakness s/p recent CVA (03/08/17), with PMHx of CKD stage 3, Anemia, Asthma, COPD, IDDM, HTN, peripheral artery disease (2011 R LE balloon angioplasty, 2012 L LE balloon angioplasty), hypercholesterolemia, glaucoma, L eye blindness, TIA (2002: dizziness, vertigo; 2003: dysarthria). CT head today: Probable acute left frontal infarct. Patient is alert, awake, follows commands. 1. Apraxia, weakness -speech and weakness worsened since discharge 03/08/17 -CT head today: Probable acute left frontal infarct extending into left coronal radiata. No acute ICH. (see full report) -Neurology consult appreciated Dr. Inman, will follow recommendations -Swallow evaluation, PT/OT, speech evaluation -Neuro checks Q4 -hx of past TIA -continue Plavix 75 PO QHS -f/u MRI Brain without contrast, EKG 2. Elevated WBC -WBC 13.1 today (was 5.5 on 03/08/17) -Afebrile -follow up UA, Urine C&S, blood culture 3. IDDM (insulin dependent diabetes mellitus) -controlled, HbA1c 7.8 (03/08/17), random glucose today 73 mg/dL -Humulin R SC ACHS sliding scale -hypoglycemia protocol -Lipid panel wnl today 4. Peripheral arterial disease -history of PVD -s/p 2011 R balloon angioplasty -s/p 2012 L balloon angioplasty -Continue with Cilostazol 100mg PO BID 5. CKD (chronic kidney disease) stage 3, GFR 30-59 ml/min -stable, BUN/Cr improved from last admission 39/2.2 -f/u serum creatinine 6. HTN (hypertension) -uncontrolled, systolic elevated at 160 mmHg -Continue Metoprolol 50mg PO Q12 -Monitor BP 6. COPD (chronic obstructive pulmonary disease) -stable, asymptomatic -CXR: No active pulmonary disease -withhold home meds for now 8. Low back pain -likely arthritic and obesity related -Continue Neurotin 300 mg PO TID -allergic to pregabalin 9. Gout -Continue Allopurinol 300mg PO HS 10. Prophylactic measure -DVT:SCD's -GI ppx not indicated -Diet- Liquid heart healthy diet for now, follow up swallow evaluation - Date & Time Date: 03/10/17 Time: 11:00
--- NOTE | 2017-03-10 18:05 | CON ---
DATE: 03/10/2017 CHIEF COMPLAINT: Worsening right-sided weakness. HISTORY OF PRESENTING ILLNESS: This is a 71-year-old woman with past medical history of chronic kidn ey disease, anemia, COPD, insulin-dependent diabetes mellitus, which is controlled with recent A1c no w as much as 7.8, which initially was above 13, hypertension, peripheral vascular disease status post stents in both lower extremities, left eye blindness and history of left knott radiata stroke in , who came in on 03/08/2017 for right-sided arm weakness which was transient with slurred speech sasha t went back to baseline, but found to have on MRI of the brain at that time an acute infarct in the l eft posterior insular cortex and small foci of acute infarction in the left posterior parietal subcor tical white matter. She has old right infarcts in the right anterior knott radiata and the left bas al ganglia. She came here for worsening right-sided weakness and slurred speech noticed by the rivera lacy. A CAT scan of the head showed acute left frontal infarcts extending to the left knott radiata, which represents her right-sided weakness and dysarthria. Currently, I have recommended her just to be on Plavix for stroke prevention and cilostazol for her peripheral vascular disease which is anoth er antiplatelet drug in addition to atorvastatin 80 mg p.o. daily for stroke prevention. The patient seen and examined at bedside and I have answered all the daughter's questions. PAST MEDICAL HISTORY: History of chronic kidney disease, anemia, status post COPD, insulin-dependen t diabetes mellitus, hypertension, hypercholesterolemia, left eye blindness, history of old right cor neetu radiata infarct and old left basal ganglia infarct in the past with a recent MRI on 03/08/17 for t ransient slurred speech and right-sided weakness showing acute infarct in the left posterior insular cortex and left posterior parietal lobe stroke. PAST SURGICAL HISTORY: Tonsillectomy in 1948. ALLERGIES: ALLERGIC TO PREGABALIN CAUSING NAUSEA. HOME MEDICATIONS: Reviewed via nursing reconciliation sheet. SOCIAL HISTORY: Previous smoker, smoked half a pack for more than 35 years. Socially drinks and den ies any illicit drug use. Lives in an apartment with daughter. REVIEW OF SYSTEMS: A 14-point review of systems is negative except for the HPI. PHYSICAL EXAMINATION: VITAL SIGNS ARE: Temperature 98.2, pulse rate of 94, blood pressure 144/79, respiratory rate 14 and oxygen saturation 98% on room air. GENERAL: The patient is sitting up in bed, is dysarthric, no acute distress. HEENT: Atraumatic and normocephalic. PERRLA. Extraocular muscles intact. NECK: Supple, no JVD and no adenopathy noted. LUNGS: Clear to auscultation. No adventitious sounds. HEART: S1, S2, normal rate and rhythm. No murmurs, rubs or gallops. ABDOMEN: Soft, nontender and nondistended. Bowel sounds present. EXTREMITIES: No clubbing. No cyanosis. Peripheral pulses 2+ felt bilaterally. NEUROLOGIC: The patient is alert and oriented to person, place, month and year. Speech is dysarthri c with some mild Broca's type aphasia. MOTOR: Has right-sided weakness, more weakness in the right upper extremity with a right pronator dr ift. Left side is intact. [id number] on the left is intact but difficult on the right due to ri ght-sided upper extremity weakness. SENSORY: Decreased light touch and pinprick up to the calves . Decreased vibrations at the toes . Proprioception is intact bilaterally. GAIT: Deferred for now. LABORATORY DATA: Sodium is 146, potassium 3.7, chloride 108, carbon dioxide 24, BUN of 39, creatinin e of 2.2, random glucose 73 and AIc 7.8. ASSESSMENT AND PLAN: This is a 71-year-old woman with history of chronic kidney disease stage III, a nemia, asthma, COPD, insulin-dependent diabetes mellitus, uncontrolled with recent A1c of 7.8 with hy pertension, peripheral vascular disease on cilostazol, left eye blindness, history of left knott rad iata infarct, history of a right anterior knott radiata infarct as well in the past in 2014 who came in on 03/08/2017 for transient right arm weakness and slurred speech which returned back to baseline , but had an MRI of the brain showing acute infarct in the left posterior insular cortex, a small foc i of acute infarction in the left posterior parietal lobe and old infarctions, right anterior knott radiata and left basal ganglia with old chronic micro hemorrhages in the right basal ganglia and glob al volume loss and was sent home on Plavix and cilostazol since there was change in her managem ent at that time. She came in again because her right-sided weakness got worse and slurred speech go t worse according to daughter, which is evident on her examination and which is likely due to the com pletion of her left middle cerebral artery territory infarct stroke, which was seen on 03/08/2017. C ompletion of strokes do show delayed symptoms, but the management is not going to change. At this ti me, her left middle cerebral artery infarct causing right-sided weakness, slurred speech and some mil d aphasia secondary to diffuse atherosclerotic disease from underlying diabetes, hypertension and per ipheral vascular disease. At this time, I recommend: 1. Instead of aspirin, just continue on Plavix 75 mg daily in addition to cilostazol for peripheral vascular disease which is also another antiplatelet along with atorvastatin of 80 mg p.o. daily for d yslipidemia and also for stroke prevention. 2. Diabetic education given. Keep her blood sugars between 140 to 180 and advise diabetic diet and exercise. 3. Her elevated leukocytosis is likely secondary to an acute infarct. 4. Continue with nephrology's recommendations in terms of elevated BUN and creatinine which is sligh tly up from her baseline. 5. Get physical therapy and occupational therapy evaluations. Will need acute rehabilitation at this time. Thank you for this consult. Please reconsult if necessary. Alton Inman MD cc: [id number] TT: 03/10/2017 18:04:10 Confirmation # [id number] Dictation # [id number]
[2017-03-10] MEDS ORDERED: Calcium Acetate 667 MG Capsule PO SCH (18:30)
[2017-03-10] MEDS: Insulin Regular 100 units/ml SC SCH ×2 (18:41→22:11)
[2017-03-10] MEDS: Cilostazol 100 mg Tab UD PO SCH (18:56)
[2017-03-10] MEDS: Latanoprost 0.005% Opht SOUTION OD SCH (22:16)
[2017-03-10] MEDS: Dorzolamide 2% Ophth Soln OD SCH (22:18)
[2017-03-10] MEDS: Patient's Own Med (Brimonidine 0.15% [Alphagan P 0.15% Opht] 1 DROP) RIGHTEYE SCH (22:20)
[2017-03-11] MEDS: Insulin Regular 100 units/ml SC SCH ×4 (06:48→21:54)
--- NOTE | 2017-03-11 07:02 | CP.PCM.PN ---
Subjective - Date & Time of Evaluation Date of Evaluation: 03/11/17 Time of Evaluation: 07:01 - Subjective Subjective: Patient was seen and examined at bedside this morning. Patient was eating breakfast this morning. Patient appears comfortable and no respiratory distress. Patient also stated she is using nasal saline for sinus and like to have it as well. Denies fever, chills, SOB, chest pain, N/V/D, headache and dizziness. Patient is schedule for MRI of head today. Objective - Vital Signs/Intake and Output Vital Signs (last 24 hours): Temp Pulse Resp BP Pulse Ox 98 F 89 19 157/83 H 96 03/11/17 04:57 03/11/17 04:57 03/11/17 04:57 03/11/17 04:57 03/11/17 04:57 - Medications Medications: Current Medications Allopurinol (Zyloprim) 300 mg PO HS [facility] Last Admin: 03/10/17 21:25 Dose: 300 mg Atorvastatin Calcium (Lipitor) 80 mg PO DAILY [facility] Calcium Acetate (Phoslo) 1,334 mg PO 0900,1300,1800 [facility] Cilostazol (Pletal) 100 mg PO BID [facility] Last Admin: 03/10/17 18:56 Dose: 100 mg Clopidogrel Bisulfate (Plavix) 75 mg PO HS [facility] Last Admin: 03/10/17 21:25 Dose: 75 mg Dextrose (Dextrose 50% Inj) 0 ml IV STAT PRN; Protocol PRN Reason: Hyglycemia Protocol Dextrose (Glutose 15) 0 gm PO ONCE PRN; Protocol PRN Reason: Hypoglycemia Protocol Dorzolamide HCl (Trusopt) 1 drop OD TID [facility] Last Admin: 03/10/17 22:18 Dose: 1 drop Ferrous Sulfate (Feosol) 325 mg PO DAILY [facility] Last Admin: 03/10/17 18:58 Dose: 325 mg Gabapentin (Neurontin) 300 mg PO TID [facility] Last Admin: 03/10/17 18:56 Dose: 300 mg Glucagon (Glucagen Diagnostic Kit) 0 mg IM STAT PRN; Protocol PRN Reason: Hypoglycemia Protocol Heparin Sodium (Porcine) (Heparin) 5,000 units SC Q8@0500,1300,2100 [facility] PRN Reason: Protocol Last Admin: 03/11/17 05:05 Dose: 5,000 units Home Med (Brimonidine 0.15% [Alphagan P 0.15% Opht]) 1 drop RIGHTEYE TID [facility] Last Admin: 03/10/17 22:20 Dose: 1 drop Dextrose/Sodium Chloride (Dextrose 5%-0.45% Ns 500 Ml) 500 mls @ 80 mls/hr IV .Q6H15M [facility] Stop: 03/11/17 13:51 Last Admin: 03/11/17 04:07 Dose: 80 mls/hr Insulin Human Regular (Humulin R) 0 units SC ACHS [facility] PRN Reason: Protocol Last Admin: 03/11/17 06:48 Dose: 3 units Latanoprost (Xalatan Opht) 1 drop OD HS [facility] Last Admin: 03/10/17 22:16 Dose: 1 drop Metoprolol Tartrate (Lopressor) 50 mg PO Q12 [facility] Last Admin: 03/10/17 20:26 Dose: 50 mg - Labs Labs: PT 11.5 Seconds (9.8-13.1) 03/10/17 09:42 INR 1.0 (0.9-1.2) 03/10/17 09:42 APTT 33.0 Seconds (25.6-37.1) 03/10/17 09:42 - Constitutional Appears: Well, Non-toxic, No Acute Distress, Other (apraxia) - Head Exam Head Exam: NORMAL INSPECTION - Eye Exam Additional comments: legally blind on left eye - ENT Exam ENT Exam: Mucous Membranes Moist - Neck Exam Neck Exam: Full ROM, Normal Inspection - Cardiovascular Exam Cardiovascular Exam: REGULAR RHYTHM, RRR, +S1, +S2 - GI/Abdominal Exam GI & Abdominal Exam: Soft, Normal Bowel Sounds - Extremities Exam Additional comments: strength 5/5 except on flaccid on RUE - Back Exam Back Exam: NORMAL INSPECTION - Neurological Exam Neurological Exam: Alert, Awake, Oriented x3 Neuro motor strength exam: Left Upper Extremity: 5, Right Upper Extremity: 0, Left Lower Extremity: 5, Right Lower Extremity: 5 - Psychiatric Exam Psychiatric exam: Normal Affect, Normal Mood - Skin Skin Exam: Dry, Intact, Normal Color, Warm Assessment and Plan - Assessment and Plan (Free Text) Assessment: 71 yr old F s/p 2 falls at home admitted for worsening speech (apraxia) and weakness s/p recent CVA (03/08/17), with PMHx of CKD stage 3, Anemia, Asthma, COPD, IDDM, HTN, peripheral artery disease (2011 R LE balloon angioplasty, 2012 L LE balloon angioplasty), hypercholesterolemia, glaucoma, L eye blindness, TIA (2003: dizziness, vertigo; 2003: dysarthria). CT head today: Probable acute left frontal infarct. Patient is alert, awake, follows commands. Plan: 1. Apraxia, weakness -Hx of recent CVA -speech and weakness worsened since discharge 03/08/17 -CT head today: Probable acute left frontal infarct extending into left coronal radiata. No acute ICH. (see full report) -Neurology consulted . -Neuro checks Q4 -continue Plavix 75 PO QHS but no Aspirin per neurologist increase bleeding risk -f/u MRI Brain without contrast 2. Elevated WBC -resolving -WBC :5.4 -Afebrile -follow up UA, Urine C&S, blood culture 3. IDDM (insulin dependent diabetes mellitus) -controlled, HbA1c 7.8 (03/08/17), random glucose today 73 mg/dL -Humulin R SC ACHS sliding scale -hypoglycemia protocol -Lipid panel 4. Peripheral arterial disease -history of PVD -s/p 2011 R balloon angioplasty -s/p 2012 L balloon angioplasty -Continue with Cilostazol 100mg PO BID 5. CKD (chronic kidney disease) stage 3, GFR 30-59 ml/min -improving -BUN/Cr :30/1.8 -f/u serum creatinine 6. HTN (hypertension) -uncontrolled, systolic elevated at 160 mmHg -Continue Metoprolol 50mg PO Q12 -Monitor BP 6. COPD (chronic obstructive pulmonary disease) -stable, asymptomatic -CXR: No active pulmonary disease -withhold home meds for now 8. Low back pain -likely arthritic and obesity related -Continue Neurotin 300 mg PO TID 9. Gout -Continue Allopurinol 300mg PO HS 10. DVT Prophylactic -high risk of bleeding no lovenox and no heparin -SCD for now
[2017-03-11 08:06] LABS: HEMATOCRIT 38.2 % (34.0-47.0); MEAN CELL VOLUME 91.9 fl (81.0-99.0); MEAN CORPUSCULAR HEMOGLOBIN 29.8 pg (27.0-31.0); MEAN CORPUSCULAR HGB CONC 32.5 g/dL (33.0-37.0); RED CELL DISTRIBUTION WIDTH 15.6 % (11.5-14.5)
[2017-03-11 08:15] LABS: WHITE BLOOD COUNT 5.4 K/uL (4.8-10.8)
[2017-03-11 08:33] LABS: CALCIUM 9.8 mg/dL (8.4-10.2); POTASSIUM 3.8 MMOL/L (3.6-5.0)
[2017-03-11] MEDS: Dorzolamide 2% Ophth Soln OD SCH ×3 (09:00→17:41)
[2017-03-11 09:10] LABS: RBC URINE 2 /hpf (0-3); URINE BACTERIA RARE (<OCC); URINE BILIRUBIN NEGATIVE (NEGATIVE); URINE BLOOD NEGATIVE (NEGATIVE); URINE COLOR YELLOW (YELLOW); URINE GLUCOSE (UA) >=500 mg/dL (Normal); URINE KETONE NEGATIVE (NEGATIVE); URINE LEUKOCYTE ESTERASE NEG Leu/uL (Negative); URINE PROTEIN 30 mg/dL (NEGATIVE); URINE UROBILINOGEN 0.2-1.0 mg/dL (0.2-1.0); WBC URINE 1 /hpf (0-5)
[2017-03-11] MEDS: Patient's Own Med (Brimonidine 0.15% [Alphagan P 0.15% Opht] 1 DROP) RIGHTEYE SCH ×3 (09:36→13:36)
[2017-03-11] MEDS: Cilostazol 100 mg Tab UD PO SCH ×2 (09:41→17:40)
--- NOTE | 2017-03-11 12:58 | CARD ---
APPROVED REPORT EKG Measurement Heart [id number] <Conclusion> Normal sinus rhythm Moderate voltage criteria for LVH, may be normal variant Abnormal ECG
[2017-03-11] MEDS: Brimonidine 0.2% 50 DROP/5 ML BOTTLE OD SCH ×2 (13:24→17:35)
[2017-03-11 14:15] LABS: CHOLESTEROL 131 mg/dL (0-199)
--- NOTE | 2017-03-11 15:55 | CP.PCM.PCO ---
Physician Communication Note - Physician Communication Note Physician Communication Note: mri reviewed consisted with pt presentation. c/w with present mx.
--- NOTE | 2017-03-11 15:58 | MRI ---
PROCEDURE: MRI BRAIN WITHOUT CONTRAST HISTORY: slurred speech and RUE weakness COMPARISON: 03/08/2017 TECHNIQUE: Multiplanar, multisequence MR images of the brain were obtained without intravenous contrast enhancement. FINDINGS: HEMORRHAGE: No gradient echo signal abnormality. DWI: Re- demonstration of left parietal lobe diffusion abnormality now increased in extent since the prior MRI from 03/08/2017. BRAIN PARENCHYMA: Increasing edema and localized mass effect noted. No midline shift. Re- demonstration old infarct involving the right subinsular region and the left cerebral hemispheric white matter. Age related volume loss. Other scattered T2 signal abnormality throughout the white matter of both cerebral hemispheres likely from old ischemic injury. VENTRICLES: Unremarkable. No hydrocephalus. CRANIUM: Unremarkable. ORBITS: Left bases bulbi. Normal appearance of the right globe. PARANASAL SINUSES/MASTOIDS: Clear VASCULAR SYSTEM: Skull base flow voids intact. OTHER FINDINGS: None. IMPRESSION: Increasing extent of the left parietal lobe diffusion abnormality with increasing edema and localized mass effect. Re- demonstration of other chronic infarcts. Findings were discussed with Dr. Miriam Kwan at approximately 3:50 p.m. on 03/11/2017. Findings also discussed with Dr. Storm oakes at approximately 3:55 p.m. on 03/11/2017.
[2017-03-11] MEDS: Latanoprost 0.005% Opht SOUTION OD SCH (22:12)
[2017-03-12] MEDS: Insulin Regular 100 units/ml SC SCH ×4 (07:00→21:15)
[2017-03-12 08:25] LABS: HEMATOCRIT 37.4 % (34.0-47.0); MEAN CELL VOLUME 92.4 fl (81.0-99.0); MEAN CORPUSCULAR HEMOGLOBIN 29.9 pg (27.0-31.0); MEAN CORPUSCULAR HGB CONC 32.4 g/dL (33.0-37.0); RED CELL DISTRIBUTION WIDTH 15.4 % (11.5-14.5); WHITE BLOOD COUNT 6.2 K/uL (4.8-10.8)
[2017-03-12 08:27] LABS: CALCIUM 10.3 mg/dL (8.4-10.2)
[2017-03-12] MEDS: Dorzolamide 2% Ophth Soln OD SCH ×3 (08:39→16:55)
[2017-03-12] MEDS: Brimonidine 0.2% 50 DROP/5 ML BOTTLE OD SCH ×3 (08:40→16:55)
[2017-03-12] MEDS: Cilostazol 100 mg Tab UD PO SCH ×2 (08:46→17:04)
--- NOTE | 2017-03-12 10:02 | CP.PCM.PN ---
Subjective - Date & Time of Evaluation Date of Evaluation: 03/12/17 Time of Evaluation: 08:30 - Subjective Subjective: Patient seen and examined at bedside, sitting comfortably in bed eating rice pudding independantly with moderate control of her left hand. Patient is non- verbal, communicating with head gestures :denies chest pain, SOB, weakness or dizziness. Reports her last bowel movement was monday. Patient signaled with hand the desire to go to the bathroom, I explained to the patient the need for using the bed bosch at this moment due to fall precautions, showed pt nursing call elena, pt nodded she will press when she is ready for bed bosch. Objective - Vital Signs/Intake and Output Vital Signs (last 24 hours): Temp Pulse Resp BP Pulse Ox 98.8 F 90 20 143/82 95 03/12/17 07:51 03/12/17 08:47 03/12/17 07:51 03/12/17 08:47 03/12/17 07:51 - Medications Medications: Current Medications Allopurinol (Zyloprim) 300 mg PO [facility] Last Admin: 03/11/17 22:06 Dose: 300 mg Atorvastatin Calcium (Lipitor) 80 mg PO DAILY [facility] Last Admin: 03/12/17 08:46 Dose: 80 mg Brimonidine Tartrate (Alphagan 0.2% Opht) 1 drop OD TID [facility] Last Admin: 03/12/17 08:40 Dose: 1 drop Calcium Acetate (Phoslo) 1,334 mg PO 0900,1300,1800 [facility] Last Admin: 03/12/17 08:45 Dose: 1,334 mg Cilostazol (Pletal) 100 mg PO BID [facility] Last Admin: 03/12/17 08:46 Dose: 100 mg Clopidogrel Bisulfate (Plavix) 75 mg PO [facility] Last Admin: 03/11/17 22:14 Dose: 75 mg Dextrose (Dextrose 50% Inj) 0 ml IV STAT PRN; Protocol PRN Reason: Hyglycemia Protocol Dextrose (Glutose 15) 0 gm PO ONCE PRN; Protocol PRN Reason: Hypoglycemia Protocol Dorzolamide HCl (Trusopt) 1 drop OD TID [facility] Last Admin: 03/12/17 08:39 Dose: 1 drop Ferrous Sulfate (Feosol) 325 mg PO DAILY [facility] Last Admin: 03/12/17 08:46 Dose: 325 mg Gabapentin (Neurontin) 300 mg PO TID [facility] Last Admin: 03/12/17 08:45 Dose: 300 mg Glucagon (Glucagen Diagnostic Kit) 0 mg IM STAT PRN; Protocol PRN Reason: Hypoglycemia Protocol Insulin Human Regular (Humulin R) 0 units SC ACHS [facility] PRN Reason: Protocol Last Admin: 03/12/17 07:00 Dose: 2 units Latanoprost (Xalatan Opht) 1 drop OD HS [facility] Last Admin: 03/11/17 22:12 Dose: 1 drop Metoprolol Tartrate (Lopressor) 50 mg PO Q12 [facility] Last Admin: 03/12/17 08:47 Dose: 50 mg Sodium Chloride ([place] Nasal [place]) 2 sprays ROSALINA Q4 PRN PRN Reason: Nasal congestion - Labs Labs: 03/12/17 06:30 03/12/17 06:30 PT 11.5 Seconds (9.8-13.1) 03/10/17 09:42 INR 1.0 (0.9-1.2) 03/10/17 09:42 APTT 33.0 Seconds (25.6-37.1) 03/10/17 09:42 - Constitutional Appears: Well, No Acute Distress - Head Exam Head Exam: ATRAUMATIC, NORMOCEPHALIC - Eye Exam Eye Exam: EOMI (in right eye; left eye not examined due to blindness), PERRL ( in right eye, left eye hazy over conjunctiva) - ENT Exam ENT Exam: Mucous Membranes Moist - Neck Exam Neck Exam: Full ROM. absent: Lymphadenopathy - Respiratory Exam Respiratory Exam: Clear to Ausculation Bilateral, NORMAL BREATHING PATTERN. absent: Rhonchi, Wheezes, Respiratory Distress - Cardiovascular Exam Cardiovascular Exam: REGULAR RHYTHM, +S1, +S2. absent: Gallop, Rubs - GI/Abdominal Exam GI & Abdominal Exam: Soft, Normal Bowel Sounds. absent: Tenderness - Extremities Exam Extremities Exam: Full ROM. absent: Pedal Edema, Tenderness - Back Exam Back Exam: absent: CVA tenderness (L), CVA tenderness (R) (strength 5/5 in left UE and bilateral lower extremities, right arm dyskinesia) - Neurological Exam Neurological Exam: Alert, Awake (apraxia) - Psychiatric Exam Psychiatric exam: Normal Affect, Normal Mood - Skin Skin Exam: Dry, Intact, Normal Color, Warm Assessment and Plan - Assessment and Plan (Free Text) Assessment: Assessment and Plan: 71 yr old F s/p 2 falls at home admitted for worsening speech (apraxia) and weakness s/p recent CVA (03/08/17), with PMHx of CKD stage 3, Anemia, Asthma, COPD, IDDM, HTN, peripheral artery disease (2011 R LE balloon angioplasty, 2012 L LE balloon angioplasty), hypercholesterolemia, glaucoma, L eye blindness, TIA (2002: dizziness, vertigo; 2003: dysarthria). CT head today: Probable acute left frontal infarct. MRI Brain: Increasing extent of the left parietal lobe diffusion abnormality with increasing edema and localized mass effect, re- demonstration of other chronic infarcts. Patient is stable. Plan: 1. Apraxia, weakness -Hx of recent CVA -speech and weakness worsened since discharge 03/08/17 -CT head today: Probable acute left frontal infarct extending into left coronal radiata. No acute ICH. (see full report) -Neurology consult appreciated, : follow recommendations -Neuro checks Q4 -continue Plavix 75 PO QHS but no Aspirin or Heparin per neurologist d/t increase bleeding risk -MRI Brain without contrast: Increasing extent of the left parietal lobe diffusion abnormality with increasing edema and localized mass effect, re- demonstration of other chronic infarcts. -PT eval appreciated: recommend daily PT and Acute Rehab upon discharge 2. Elevated WBC -Resolved, was likely secondary to acute infarct -WBC : 6.2 -Afebrile, UA wnl -follow Urine C&S, blood culture 3. IDDM (insulin dependent diabetes mellitus) -uncontrolled, random glucose today 176 mg/dL -HbA1c 7.8 (03/08/17) -Humulin R SC ACHS sliding scale, added Insulin Detemir 10 units SC QHS -hypoglycemia protocol -Lipid panel wnl 03/11/17 4. Peripheral arterial disease -history of PVD -s/p 2011 R balloon angioplasty -s/p 2012 L balloon angioplasty -Continue with Cilostazol 100mg PO BID 5. CKD (chronic kidney disease) stage 3, GFR 30-59 ml/min -improved, stable -at baseline -BUN/Cr :24/1.8 -f/u serum creatinine 6. HTN (hypertension) -controlled, BP this AM 143/82 mmHg -Continue Metoprolol 50mg PO Q12 -Monitor BP 6. COPD (chronic obstructive pulmonary disease) -stable, asymptomatic -CXR: No active pulmonary disease -withhold home meds for now 8. Low back pain -likely arthritic and obesity related -Continue Neurotin 300 mg PO TID 9. Gout -Continue Allopurinol 300mg PO HS 10. DVT Prophylactic -high risk of bleeding no lovenox and no heparin -SCD's for now
[2017-03-12] MEDS: Nasal Spray(Ocean spray) NAS PRN (16:56)
[2017-03-12] MEDS ORDERED: Home Med 1 UNIT OU SCH (22:00)
[2017-03-12] MEDS ORDERED: Insulin Detemir 100 Units/ml Inj SC SCH (22:00)
[2017-03-13] MEDS: Brimonidine 0.2% 50 DROP/5 ML BOTTLE OD SCH ×2 (09:07→15:02)
[2017-03-13] MEDS: Cilostazol 100 mg Tab UD PO SCH (09:17)
[2017-03-13] MEDS: Dorzolamide 2% Ophth Soln OD SCH ×2 (09:19→15:01)
[2017-03-13] MEDS ORDERED: Simethicone 40 mg/0.6 ml Liquid (30 ml) PO ONE (11:00)
[2017-03-13] MEDS: Nasal Spray(Ocean spray) NAS PRN (13:37)
[2017-03-13] MEDS: Insulin Regular 100 units/ml SC SCH ×2 (15:04→16:53)
[2017-03-13 15:50] VITALS: BP 99/62; PULSE 82; RESP 20; TEMP 98.5; O2SAT 95
--- NOTE | 2017-03-13 16:51 | CP.PCM.DIS ---
Provider - Provider Date of Admission: 03/10/17 12:27 Attending physician: Faustina Degroot MD Consults: -neurology Time Spent in preparation of Discharge (in minutes): 30 Hospital Course - Lab Results Lab Results: Micro Results 03/11/17 06:00 Urine,Clean Catch Urine Culture - Final Gram Positive Cocci Most Recent Lab Values WBC 6.2 K/uL (4.8-10.8) 03/12/17 06:30 RBC 4.05 Mil/uL (3.80-5.20) 03/12/17 06:30 Hgb 12.1 g/dL (12.0-16.0) 03/12/17 06:30 Hct 37.4 % (34.0-47.0) 03/12/17 06:30 MCV 92.4 fl (81.0-99.0) 03/12/17 06:30 MCH 29.9 pg (27.0-31.0) 03/12/17 06:30 MCHC 32.4 g/dL (33.0-37.0) L 03/12/17 06:30 RDW 15.4 % (11.5-14.5) H 03/12/17 06:30 Plt Count 189 K/uL (130-400) 03/12/17 06:30 MPV 8.3 fl (7.2-11.7) 03/10/17 09:42 Neut % (Auto) 71.4 % (50.0-75.0) 03/10/17 09:42 Lymph % (Auto) 20.0 % (20.0-40.0) 03/10/17 09:42 [place] % (Auto) 7.0 % (0.0-10.0) 03/10/17 09:42 Eos % (Auto) 0.9 % (0.0-4.0) 03/10/17 09:42 Baso % (Auto) 0.7 % (0.0-2.0) 03/10/17 09:42 Neut # 9.4 K/uL (1.8-7.0) H 03/10/17 09:42 Lymph # 2.6 K/uL (1.0-4.3) 03/10/17 09:42 [place] # 0.9 K/uL (0.0-0.8) H 03/10/17 09:42 Eos # 0.1 K/uL (0.0-0.7) 03/10/17 09:42 Baso # 0.1 K/uL (0.0-0.2) 03/10/17 09:42 PT 11.5 Seconds (9.8-13.1) 03/10/17 09:42 INR 1.0 (0.9-1.2) 03/10/17 09:42 APTT 33.0 Seconds (25.6-37.1) 03/10/17 09:42 Sodium 143 mmol/l (132-148) 03/12/17 06:30 Potassium 4.0 MMOL/L (3.6-5.0) 03/12/17 06:30 Chloride 103 mmol/L (98-107) 03/12/17 06:30 Carbon Dioxide 29 mmol/L (22-30) 03/12/17 06:30 Anion Gap 14 (10-20) 03/12/17 06:30 BUN 24 mg/dl (7-17) H 03/12/17 06:30 Creatinine 1.8 mg/dL (0.7-1.2) H 03/12/17 06:30 Est GFR ( Amer) 34 03/12/17 06:30 Est GFR (Non-Af Amer) 28 03/12/17 06:30 POC Glucose (mg/dL) 217 mg/dL (65-110) H 03/13/17 16:03 Random Glucose 169 mg/dL (65-105) H 03/12/17 06:30 Calcium 10.3 mg/dL (8.4-10.2) H 03/12/17 06:30 Total Bilirubin 0.5 mg/dl (0.2-1.3) 03/10/17 09:42 AST 37 U/L (14-36) H 03/10/17 09:42 ALT 40 U/L (9-52) 03/10/17 09:42 Alkaline Phosphatase 73 U/L (38-126) 03/10/17 09:42 Troponin I 0.0200 ng/mL (0.00-0.120) 03/10/17 09:42 Total Protein 7.6 G/DL (6.3-8.2) 03/10/17 09:42 Albumin 4.4 g/dL (3.5-5.0) 03/10/17 09:42 Globulin 3.1 gm/dL (2.2-3.9) 03/10/17 09:42 Albumin/Globulin Ratio 1.4 (1.0-2.1) 03/10/17 09:42 Triglycerides 91 mg/DL (0-149) 03/11/17 14:04 Cholesterol 131 mg/dL (0-199) 03/11/17 14:04 LDL Cholesterol Direct 41 mg/dL (0-129) 03/11/17 14:04 HDL Cholesterol 60 MG/DL (30-70) 03/11/17 14:04 Urine Color Yellow (YELLOW) 03/11/17 06:00 Urine Clarity Clear (Clear) 03/11/17 06:00 Urine pH 6.0 (5.0-8.0) 03/11/17 06:00 Ur Specific [place] 1.014 (1.003-1.030) 03/11/17 06:00 Urine Protein 30 mg/dL (NEGATIVE) 03/11/17 06:00 Urine Glucose (UA) >=500 mg/dL (Normal) 03/11/17 06:00 Urine Ketones Negative mg/dL (NEGATIVE) 03/11/17 06:00 Urine Blood Negative (NEGATIVE) 03/11/17 06:00 Urine Nitrate Negative (NEGATIVE) 03/11/17 06:00 Urine Bilirubin Negative (NEGATIVE) 03/11/17 06:00 Urine Urobilinogen 0.2-1.0 mg/dL (0.2-1.0) 03/11/17 06:00 Ur Leukocyte Esterase Neg José Miguel/uL (Negative) 03/11/17 06:00 Urine RBC (Auto) 2 /hpf (0-3) 03/11/17 06:00 Urine Microscopic WBC 1 /hpf (0-5) 03/11/17 06:00 Ur Squamous Epith Cells < 1 /hpf (0-5) 03/11/17 06:00 Urine Bacteria Rare (<OCC) 03/11/17 06:00 Blood Type A POSITIVE 03/10/17 09:42 Antibody Screen Negative 03/10/17 09:42 BBK History Checked Patient has bt 03/10/17 09:42 - Hospital Course Hospital Course: 71 yr old F admitted for worsening speech (apraxia) and weakness s/p recent CVA (03/08/17) and s/p 2 falls at home, found to have physical exam findings and MRI Brain consistent with 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 Patient has PMHx of CKD stage 3, Anemia, Asthma, COPD, IDDM, HTN, peripheral artery disease (2011 R LE balloon angioplasty, 2012 L LE balloon angioplasty), hypercholesterolemia, glaucoma, L eye blindness, TIA (2002 : dizziness, vertigo; 2003: dysarthria). Patient is stable and was transferred to 6th floor for Subacute rehab. - Date & Time of H&P Date of H&P: 03/10/17 Time of H&P: 15:02 Discharge Exam - Head Exam Head Exam: ATRAUMATIC, NORMOCEPHALIC - Eye Exam Eye Exam: EOMI (in right eye; left eye not examined due to blindness), PERRL ( in right eye, left eye hazy over conjunctiva) - ENT Exam ENT Exam: Mucous Membranes Moist - Neck Exam Neck exam: Full Rom - Respiratory Exam Respiratory Exam: Clear to PA & Lateral, NORMAL BREATHING PATTERN. absent: Respiratory Distress - Cardiovascular Exam Cardiovascular Exam: REGULAR RHYTHM, +S1, +S2 - GI/Abdominal Exam GI & Abdominal Exam: Normal Bowel Sounds, Soft. absent: Distended, Tenderness - Extremities Exam Extremities exam: full ROM (and strength 5/5 in in left upper extremity and bilateral lower extremities) Additional comments: right arm weakness and dyskinesia - Back Exam Back exam: absent: CVA tenderness (L), CVA tenderness (R) - Neurological Exam Neurological exam: Alert (nonverbal, communicates via head gestures and writing on notebook) - Psychiatric Exam Psychiatric exam: Normal Affect, Normal Mood - Skin Skin Exam: Dry, Intact, Warm Discharge Plan - Follow Up Plan Condition: GUARDED Disposition: REHAB FACILITY/REHAB UNIT Instructions: Stroke (DC), Weakness (GEN) Additional Instructions: Discharge to subacute rehab
== END 2017-03-13 17:30 | DRG 66 ==
LOC: H.ER 09:22 → H.ERHOLD 12:27 → H.TEL 16:37
PROVIDERS: ADMIT Family Medicine; ATTEND Family Medicine
DX: I63.512 Cerebral infarction due to unspecified occlusion or stenosis of left middle cerebral artery (principal); E11.22 Type 2 diabetes mellitus with diabetic chronic kidney disease; E11.51 Type 2 diabetes mellitus with diabetic peripheral angiopathy without gangrene; D72.829 Elevated white blood cell count, unspecified; I69.320 Aphasia following cerebral infarction; E66.9 Obesity, unspecified; M54.5 Low back pain; E78.00 Pure hypercholesterolemia, unspecified; H40.9 Unspecified glaucoma; H54.42 Blindness, left eye, normal vision right eye; I12.9 Hypertensive chronic kidney disease with stage 1 through stage 4 chronic kidney disease, or unspecified chronic kidney disease; I69.331 Monoplegia of upper limb following cerebral infarction affecting right dominant side; J44.9 Chronic obstructive pulmonary disease, unspecified; M10.9 Gout, unspecified; N18.3 Chronic kidney disease, stage 3 (moderate); Z79.02 Long term (current) use of antithrombotics/antiplatelets; Z79.4 Long term (current) use of insulin; Z87.891 Personal history of nicotine dependence; I69.390 Apraxia following cerebral infarction; Z68.37 Body mass index [BMI] 37.0-37.9, adult

== ENCOUNTER 2017-03-13 15:30 | Inpatient (IN) | payer MEDICARE ==
[2017-03-13] MEDS ORDERED: Nasal Spray(Ocean spray) NAS PRN (18:33)
[2017-03-13] MEDS ORDERED: Dextrose 50% SYRINGE Inj (50 ml) IV PRN (18:38)
[2017-03-13] MEDS ORDERED: Glucagon Recombinant 1 mg Inj IM PRN (18:38)
--- NOTE | 2017-03-13 19:58 | CP.PCM.CON ---
History of Present Illness - History of Present Illness History of Present Illness: Dr Roberts PMR consultation on Luisa Arizmendi, born 1945, who has been admitted to [facility] for acute inpatient rehabilitation following a left CVA with right HP in a MCA distribution. She has past history of a CVA 2 years ago that resulted primarily in speech deficits and 12 years ago that lead to left eye blindiness. She has chronic LBP and is limited at home. She is left hand dominant Review of Systems - Constitutional Constitutional: absent: Anorexia, Chills - EENT Eyes: Blurred Vision, Loss of Vision (not new) Nose/Mouth/Throat: absent: Nasal Congestion - Cardiovascular Cardiovascular: absent: Chest Pain - Respiratory Respiratory: absent: Dyspnea - Gastrointestinal Gastrointestinal: Diarrhea Past Patient History - Past Medical History & Family History Past Medical History?: Yes - Past Social History Smoking Status: Former Smoker Alcohol: None Drugs: Denies Home Situation {Lives}: With Family (elevator) - CARDIAC Hx Cardiac Disorders: Yes Hx Hypercholesterolemia: Yes Hx Hypertension: Yes Hx Peripheral Vascular Disease: Yes - PULMONARY Hx Asthma: Yes Hx Chronic Obstructive Pulmonary Disease (COPD): Yes - NEUROLOGICAL HX Cerebrovascular Accident: Yes - HEENT Hx HEENT Problems: Yes Hx Blind: Yes (Left eye no vision) - RENAL Hx Chronic Kidney Disease: Yes (stage 3) - ENDOCRINE/METABOLIC Hx Diabetes Mellitus Type 2: Yes - HEMATOLOGICAL/ONCOLOGICAL Hx Anemia: Yes - INTEGUMENTARY Hx Dermatological Problems: No - MUSCULOSKELETAL/RHEUMATOLOGICAL Hx Back Pain: Yes Hx Falls: Yes (related to stroke) - GASTROINTESTINAL Hx Gastrointestinal Disorders: No HX Swallowing Problems: Yes - GENITOURINARY/GYNECOLOGICAL Hx Genitourinary Disorders: No - PSYCHIATRIC Hx Psychophysiologic Disorder: No Hx Substance Use: No - SURGICAL HISTORY Hx Tonsillectomy: Yes (1947) - ANESTHESIA Hx Anesthesia: Yes Hx Anesthesia Reactions: No Hx Malignant Hyperthermia: No Meds Allergies/Adverse Reactions: Allergies Allergy/AdvReac Type Severity Reaction Status Date / Time pregabalin [From Lyrica] Allergy Nausea, Verified 03/13/17 18:25 Generalize pain - Medications Medications: Current Medications Allopurinol (Zyloprim) 300 mg PO HS MINDY Atorvastatin Calcium (Lipitor) 80 mg PO HS MINDY Brimonidine Tartrate (Alphagan 0.2% Opht) 1 drop OD TID MINDY Calcium Acetate (Phoslo) 1,334 mg PO 0900,1300,1800 M[facility] Cilostazol (Pletal) 100 mg PO BID M[facility] Clopidogrel Bisulfate (Plavix) 75 mg PO HS [facility] Dextrose (Dextrose 50% Inj) 0 ml IV STAT PRN; Protocol PRN Reason: Hyglycemia Protocol Dextrose (Glutose 15) 0 gm PO ONCE PRN; Protocol PRN Reason: Hypoglycemia Protocol Dorzolamide HCl (Trusopt) 1 drop OD TID MINDY Ferrous Sulfate (Feosol) 325 mg PO DAILY MIND[facility] Gabapentin (Neurontin) 300 mg PO Q8 MINDY Glucagon (Glucagen Diagnostic Kit) 0 mg IM STAT PRN; Protocol PRN Reason: Hypoglycemia Protocol Insulin Detemir (Levemir) 10 units SC HS MINDY Insulin Human Lispro (Humalog) 0 units SC ACHS MINDY PRN Reason: Protocol Metoprolol Tartrate (Lopressor) 50 mg PO Q12 MINDY Sodium Chloride ([place] Nasal [place]) 2 sprays ROSALINA Q4 PRN PRN Reason: Nasal congestion Physical Exam - Constitutional Appears: Non-toxic - Head Exam Head Exam: ATRAUMATIC, NORMAL INSPECTION (has ) - Eye Exam Eye Exam: absent: Normal appearance (left eye is opaque) - ENT Exam ENT Exam: Mucous Membranes Moist - Respiratory Exam Respiratory Exam: NORMAL BREATHING PATTERN. absent: Chest Wall Tenderness - Cardiovascular Exam Cardiovascular Exam: REGULAR RHYTHM - Extremities Exam Extremities exam: Negative for: calf tenderness - Neurological Exam Neurological exam: Alert, Oriented x3 - Psychiatric Exam Psychiatric exam: Normal Affect, Normal Mood Results - Vital Signs Recent Vital Signs: Last Vital Signs Temp Pulse 89 03/13/17 17:53 Resp 20 03/13/17 17:53 BP Pulse Ox 95 03/13/17 17:53 Assessment & Plan - Assessment and Plan (Free Text) Assessment: 71 year old left hand dominant female with left MCA distribution CVA old left eye blindness limited function prior secondary to LBP PT/OT to continue to help increase functional independence Team conference for d/c planning Pain: controlled Vascular: no evidence of DVT GI: + diarrhea 3/5 right UE intact right and left LE intact left UE no calf tenderness intact comprehension expressive aphasia Patient is an excellent acute rehabilitation candidate and will have focused speech, PT, OT and recreational therapy to help facilitate a safe and appropriate d/c plan
--- NOTE | 2017-03-13 20:02 | CP.PCM.PN ---
Subjective - Date & Time of Evaluation Date of Evaluation: 03/13/17 Time of Evaluation: 20:01 - Subjective Subjective: 71 year old left hand dominant female with left MCA distribution CVA Objective - Vital Signs/Intake and Output Vital Signs (last 24 hours): Temp Pulse Resp BP Pulse Ox 89 20 95 03/13/17 17:53 03/13/17 17:53 03/13/17 17:53 - Medications Medications: Current Medications Allopurinol (Zyloprim) 300 mg PO HS MINDY Atorvastatin Calcium (Lipitor) 80 mg PO HS MINDY Brimonidine Tartrate (Alphagan 0.2% Opht) 1 drop OD TID MINDY Calcium Acetate (Phoslo) 1,334 mg PO 0900,1300,1800 M[facility]Y Cilostazol (Pletal) 100 mg PO BID MINDY Clopidogrel Bisulfate (Plavix) 75 mg PO HS [facility]INDY Dextrose (Dextrose 50% Inj) 0 ml IV STAT PRN; Protocol PRN Reason: Hyglycemia Protocol Dextrose (Glutose 15) 0 gm PO ONCE PRN; Protocol PRN Reason: Hypoglycemia Protocol Dorzolamide HCl (Trusopt) 1 drop OD TID MINDY Ferrous Sulfate (Feosol) 325 mg PO DAILY MINDY Gabapentin (Neurontin) 300 mg PO Q8 [facility]Y Glucagon (Glucagen Diagnostic Kit) 0 mg IM STAT PRN; Protocol PRN Reason: Hypoglycemia Protocol Insulin Detemir (Levemir) 10 units SC HS MINDY Insulin Human Lispro (Humalog) 0 units SC ACHS MINDY PRN Reason: Protocol Metoprolol Tartrate (Lopressor) 50 mg PO Q12 MINDY Sodium Chloride ([place] Nasal [place]) 2 sprays ROSLAINA Q4 PRN PRN Reason: Nasal congestion Physiatry Overall Plan of Care - Overall Plan of Care Estimated Length of Stay in Weeks: 3 Rehab Impairment: Mobility, Gait, Speech, Balance, Coordination Etiologic Diagnosis: Cerebrovascular Accident Rehab/Medical Prognosis: Fair - Anticipated Interventions Physical Therapy:: Yes Occupational Therapy:: Yes Speech Therapy:: Yes Recreational Therapy:: Yes - Therapy Goals Bed Mobility: Supervision Ambulation: Supervision Functional Positional Changes:: Supervision - Discharge Plan Discharge Destination: Home
[2017-03-13] MEDS: Insulin Detemir 100 Units/ml Inj SC SCH (21:50)
[2017-03-13] MEDS: Insulin Lispro (humaLOG) 100 Units/ml Inj SC SCH (21:54)
[2017-03-13] MEDS ORDERED: Insulin Regular 100 units/ml SC SCH (22:00)
[2017-03-14] MEDS: Insulin Lispro (humaLOG) 100 Units/ml Inj SC SCH ×4 (07:45→21:52)
[2017-03-14] MEDS: Cilostazol 100 mg Tab UD PO SCH ×2 (08:40→17:07)
[2017-03-14] MEDS: Brimonidine 0.2% 50 DROP/5 ML BOTTLE OD SCH ×3 (08:41→17:04)
[2017-03-14] MEDS: Dorzolamide 2% Ophth Soln OD SCH ×3 (08:42→17:02)
[2017-03-14] MEDS: Calcium Acetate 667 MG Capsule PO SCH ×2 (08:44→12:34)
--- NOTE | 2017-03-14 13:05 | PSY.TMCNF ---
Nursing - Vital Signs Vital Signs (Last 8 hours): Vital Signs 03/14/17 03/14/17 08:02 08:42 Temperature 98.2 F Pulse Rate 79 79 Respiratory 19 Rate Blood Pressure 144/64 144/64 O2 Sat by Pulse 96 Oximetry - Precautions: Precautions: Fall Prevention, Aspiration - Medications/Other Issues Comment: To be determined - Toileting Toileting: Moderate Assistance - Bladder Management Bladder Pattern: Normal Voiding Method: Toilet, Bedpan Bladder Management: Minimal Assistance Frequency of Accidents: none - Bowel Management Bowel Pattern: Normal Comment: on stool softener Bowel Management: Moderate Assistance Frequency of Accidents: none - Transfers Transfers: Maximal Assistance - ADL's ADL's: Moderate Assistance - Pain Management Comments: denies - Patient/Family Teaching Comments: safety measures - Goals/Time Frame Comments: fall prevention, adequate po intake Physical Therapy - Pain Management Techniques: Medication, Relaxation Techniques - Provider Therapist: ANCA [employer]roscall[employer] cutter Therapy - Arousal/Attention/Orientation Patient Orientation: Person, Place, Appropriate to Situation - ADL/IADL Self Feeding: Supervision Grooming: Supervision Dressing-Upper Extremity: Maximum Assistance Dressing-Lower Extremity: Maximum Assistance - Pain Alleviating Techniques: Medication, Relaxation Techniques Nutrition - Current Diet Current Diet/ Supplement/ Feedings: Pureed [employer] Thick Liquids Moderate Consistent CHO Heart Healthy diet - Appetite Percent Meal Consumed: 75-100% - Comments Comments: safety measures - Assessment/Goals/Time Frame Assessment/Goals/Time Frame: To be determined - Provider Provider: Lillian Thomas RD Case Management - Discharge Plan Discharge Plan: Home with significant other/family Rehabilitation Plan - Treatment Plan Treatment Plan: Physical Therapy, Occupational Therapy, Speech, Dietary, Patient /Family Education - Discharge Plan Discharge to: Home
--- NOTE | 2017-03-14 13:52 | CP.PCM.PN ---
Subjective - Date & Time of Evaluation Date of Evaluation: 03/14/17 Time of Evaluation: 13:51 - Subjective Subjective: Patient seen in room family present less handgrip today than yesterday good LE strength continue current care Objective - Vital Signs/Intake and Output Vital Signs (last 24 hours): Temp Pulse Resp BP Pulse Ox 98.2 F 79 19 144/64 96 03/14/17 08:02 03/14/17 08:42 03/14/17 08:02 03/14/17 08:42 03/14/17 08:02 - Medications Medications: Current Medications Allopurinol (Zyloprim) 300 mg PO [facility] Last Admin: 03/13/17 21:53 Dose: 300 mg Atorvastatin Calcium (Lipitor) 80 mg PO [facility] Last Admin: 03/13/17 21:50 Dose: 80 mg Brimonidine Tartrate (Alphagan 0.2% Opht) 1 drop OD TID [facility] Last Admin: 03/14/17 12:33 Dose: 1 drop Calcium Acetate (Phoslo) 1,334 mg PO 0900,1300,1800 [facility] Last Admin: 03/14/17 12:34 Dose: 1,334 mg Cilostazol (Pletal) 100 mg PO BID [facility] Last Admin: 03/14/17 08:40 Dose: 100 mg Clopidogrel Bisulfate (Plavix) 75 mg PO [facility] Last Admin: 03/13/17 21:52 Dose: 75 mg Dextrose (Dextrose 50% Inj) 0 ml IV STAT PRN; Protocol PRN Reason: Hyglycemia Protocol Dextrose (Glutose 15) 0 gm PO ONCE PRN; Protocol PRN Reason: Hypoglycemia Protocol Dorzolamide HCl (Trusopt) 1 drop OD TID [facility] Last Admin: 03/14/17 12:36 Dose: 1 drop Ferrous Sulfate (Feosol) 325 mg PO DAILY [facility] Last Admin: 03/14/17 08:41 Dose: 325 mg Gabapentin (Neurontin) 300 mg PO Q8 [facility] Last Admin: 03/14/17 13:14 Dose: 300 mg Glucagon (Glucagen Diagnostic Kit) 0 mg IM STAT PRN; Protocol PRN Reason: Hypoglycemia Protocol Insulin Detemir (Levemir) 10 units SC [facility] Last Admin: 03/13/17 21:50 Dose: 10 units Insulin Human Lispro (Humalog) 0 units SC [facility] PRN Reason: Protocol Last Admin: 03/14/17 12:00 Dose: 4 units Metoprolol Tartrate (Lopressor) 50 mg PO Q12 [facility] Last Admin: 03/14/17 08:42 Dose: 50 mg Sodium Chloride ([place] Nasal [place]) 2 sprays ROSALINA Q4 PRN PRN Reason: Nasal congestion
--- NOTE | 2017-03-14 14:56 | CP.PCM.HP ---
History of Present Illness - History of Present Illness History of Present Illness: 71 yr old F transferred to Subacute Rehab s/p discharge from [facility] where patient was admitted for worsening speech (apraxia) and weakness s/p recent CVA s/p 2 falls at home. Patient was found to have physical exam signs and MRI Brain consistent with completion of left MCA territory infarct stroke identified on . Patient has PMHx of CKD stage 3, Anemia, Asthma, COPD, IDDM, HTN, peripheral artery disease (2011 R LE balloon angioplasty, 2012 L LE balloon angioplasty), hypercholesterolemia, glaucoma, L eye blindness, TIA (2002: dizziness, vertigo; 2003: dysarthria). Patient is stable, communicates via head gestures and written notes. PMD: Dr. Miranda (last clinic visit 10/11/16) PMHx: CKD stage 3, Anemia, Asthma, COPD, IDDM, HTN, hypercholesterolemia, glaucoma, L eye blindness SurgHx: tonsillectomy 1947 Allergies: pregabalin (nausea) Medications: Extensive poly-pharmacy (see home meds, ECW) Social History: Previous smoker (0.5 PPD x > 35 years), social drinking, denies drug use, lives in an apartment, with daughter Present on Admission - Present on Admission Any Indicators Present on Admission: Yes History of DVT/PE: No History of Uncontrolled Diabetes: Yes Urinary Catheter: No Decubitus Ulcer Present: No Review of Systems - Review of Systems All systems: reviewed and no additional remarkable complaints except (except for what is mentioned in the HPI) Past Patient History - Past Medical History & Family History Past Medical History?: Yes - Past Social History Smoking Status: Former Smoker Alcohol: None Drugs: Denies Home Situation {Lives}: With Family (elevator) - CARDIAC Hx Cardiac Disorders: Yes Hx Hypercholesterolemia: Yes Hx Hypertension: Yes - PULMONARY Hx Asthma: Yes Hx Chronic Obstructive Pulmonary Disease (COPD): Yes - NEUROLOGICAL HX Cerebrovascular Accident: Yes - HEENT Hx HEENT Problems: Yes Hx Blind: Yes (Left eye no vision) - RENAL Hx Chronic Kidney Disease: Yes (stage 3) - ENDOCRINE/METABOLIC Hx Diabetes Mellitus Type 2: Yes - HEMATOLOGICAL/ONCOLOGICAL Hx Anemia: Yes - INTEGUMENTARY Hx Dermatological Problems: No - MUSCULOSKELETAL/RHEUMATOLOGICAL Hx Back Pain: Yes Hx Falls: Yes (related to stroke) - GASTROINTESTINAL Hx Gastrointestinal Disorders: No HX Swallowing Problems: Yes - GENITOURINARY/GYNECOLOGICAL Hx Genitourinary Disorders: No - PSYCHIATRIC Hx Psychophysiologic Disorder: No Hx Substance Use: No - SURGICAL HISTORY Hx Tonsillectomy: Yes (1947) - ANESTHESIA Hx Anesthesia: Yes Hx Anesthesia Reactions: No Hx Malignant Hyperthermia: No Meds Allergies/Adverse Reactions: Allergies Allergy/AdvReac Type Severity Reaction Status Date / Time pregabalin [From Lyrica] Allergy Nausea, Verified 03/13/17 18:25 Generalize pain Physical Exam - Constitutional Appears: Well, No Acute Distress (patient eating independantly using her left hand) - Head Exam Head Exam: ATRAUMATIC, NORMOCEPHALIC - Eye Exam Eye Exam: EOMI (n right eye; left eye not examined due to blindness), PERRL (in right eye, left eye hazy over conjunctiva) - ENT Exam ENT Exam: Mucous Membranes Moist - Neck Exam Neck exam: Positive for: Full Rom. Negative for: Lymphadenopathy - Respiratory Exam Respiratory Exam: Clear to Auscultation Bilateral, NORMAL BREATHING PATTERN. absent: Rales, Rhonchi - Cardiovascular Exam Cardiovascular Exam: REGULAR RHYTHM, +S1, +S2. absent: Gallop, Rubs - GI/Abdominal Exam GI & Abdominal Exam: Normal Bowel Sounds, Soft (obese). absent: Distended, Tenderness - Extremities Exam Extremities exam: Positive for: full ROM (strength 5/5 in left UE and bilateral lower extremities, right arm dyskinesia and weakness), pedal pulses present. Negative for: calf tenderness, joint swelling, pedal edema - Back Exam Back exam: absent: CVA tenderness (L), CVA tenderness (R) - Neurological Exam Neurological exam: Alert, Oriented x3 - Psychiatric Exam Psychiatric exam: Normal Affect, Normal Mood - Skin Skin Exam: Dry, Intact, Warm Results - Vital Signs Recent Vital Signs: Last Vital Signs Temp 98.2 F 03/14/17 08:02 Pulse 79 03/14/17 08:42 Resp 19 03/14/17 08:02 BP 144/64 03/14/17 08:42 Pulse Ox 96 03/14/17 08:02 - Labs Labs: Laboratory Results - last 24 hr 03/13/17 03/14/17 03/14/17 21:06 06:32 11:42 POC Glucose (mg/dL) 198 H 195 H 278 H Assessment & Plan - Assessment and Plan (Free Text) Assessment: 71 yr old F admitted to Subacute Rehab s/p 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 Patient has PMHx of CKD stage 3, Anemia, Asthma, COPD, IDDM, HTN, peripheral artery disease (2011 R LE balloon angioplasty, 2012 L LE balloon angioplasty), hypercholesterolemia, glaucoma, L eye blindness, TIA (2002: dizziness, vertigo; 2003: dysarthria). Patient is stable, communicates via head gestures and written notes. 1. 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 No acute ICH. (see full report) -continue Plavix 75 PO QHS but no Aspirin or Heparin per neurologist d/t increase bleeding risk -MRI Brain without contrast: Increasing extent of the left parietal lobe diffusion abnormality with increasing edema and localized mass effect, re- demonstration of other chronic infarcts. -PT/OT, speech evaluation appreciated: will follow recommendations 2. IDDM (insulin dependent diabetes mellitus) -uncontrolled, random glucose today 195 mg/dL -HbA1c 7.8 (03/08/17) -Insulin Lispro SC ACHS sliding scale -Insulin Detemir 10 units SC QHS -hypoglycemia protocol -Lipid panel wnl 03/11/17 -Atorvastatin 80mg PO HS -diet: Pureed [place] Thick Liquids Moderate Consistent CHO Heart Healthy diet 3. Peripheral arterial disease -history of PVD -s/p 2011 R balloon angioplasty -s/p 2012 L balloon angioplasty -Continue with Cilostazol 100mg PO BID 4. CKD (chronic kidney disease) stage 3, GFR 30-59 ml/min -improved, stable -at baseline -BUN/Cr :24/1.8 on 03/12/17 -f/u serum creatinine 5. HTN (hypertension) -controlled, BP this AM 144/64 mmHg -Continue Metoprolol 50mg PO Q12 -Monitor BP 6. COPD (chronic obstructive pulmonary disease) -stable, asymptomatic -CXR: No active pulmonary disease -withhold home meds for now 8. Low back pain -likely arthritic and obesity related -Continue Neurotin 300 mg PO TID -Tramadol 50mg PO Q12 PRN moderate pain (4-7) 9. Gout -Continue Allopurinol 300mg PO HS 10. DVT Prophylactic -high risk of bleeding no lovenox and no heparin -SCD's for now - Date & Time Date: 03/14/17 Time: 08:00
[2017-03-14] MEDS: Insulin Detemir 100 Units/ml Inj SC SCH (21:51)
[2017-03-15 06:49] LABS: HEMATOCRIT 37.5 % (34.0-47.0); MEAN CELL VOLUME 92.2 fl (81.0-99.0); MEAN CORPUSCULAR HEMOGLOBIN 29.8 pg (27.0-31.0); MEAN CORPUSCULAR HGB CONC 32.3 g/dL (33.0-37.0); RED CELL DISTRIBUTION WIDTH 15.4 % (11.5-14.5); WHITE BLOOD COUNT 7.1 K/uL (4.8-10.8)
[2017-03-15] MEDS: Insulin Lispro (humaLOG) 100 Units/ml Inj SC SCH ×4 (07:06→21:35)
[2017-03-15 07:08] LABS: CALCIUM 10.3 mg/dL (8.4-10.2); POTASSIUM 4.6 MMOL/L (3.6-5.0)
[2017-03-15] MEDS: Brimonidine 0.2% 50 DROP/5 ML BOTTLE OD SCH ×3 (08:21→17:11)
[2017-03-15] MEDS: Cilostazol 100 mg Tab UD PO SCH ×2 (08:22→17:13)
[2017-03-15] MEDS: Dorzolamide 2% Ophth Soln OD SCH ×3 (08:24→17:10)
[2017-03-15] MEDS ORDERED: Barium Sulfate Susp 0.1% w/v, 0.1% w/w 450 mL Bottle PO ONE (13:49)
--- NOTE | 2017-03-15 16:35 | RAD ---
PROCEDURE: Modified barium swallow video assistance. HISTORY: stroke COMPARISON: None TECHNIQUE: Total fluoroscopic time (continuous mode) utilized during the procedure: 149.6 seconds. FINDINGS: Unremarkable study. No evidence of aspiration or penetration. Normal conversion from the oral to pharyngeal phase. IMPRESSION: Negative/unremarkable study.
--- NOTE | 2017-03-15 17:27 | CP.PCM.PN ---
Subjective - Date & Time of Evaluation Date of Evaluation: 03/15/17 Time of Evaluation: 17:26 - Subjective Subjective: Patient seen in room some improved hand strength and AROM on the right side no headache or chest pain continue current care Objective - Vital Signs/Intake and Output Vital Signs (last 24 hours): Temp Pulse Resp BP Pulse Ox 96.9 F L 76 20 121/64 96 03/15/17 08:12 03/15/17 12:25 03/15/17 08:12 03/15/17 12:25 03/15/17 08:12 - Medications Medications: Current Medications Allopurinol (Zyloprim) 300 mg PO [facility] Last Admin: 03/14/17 21:50 Dose: 300 mg Atorvastatin Calcium (Lipitor) 80 mg PO [facility] Last Admin: 03/14/17 21:50 Dose: 80 mg Brimonidine Tartrate (Alphagan 0.2% Opht) 1 drop OD TID ON [facility] Last Admin: 03/15/17 17:11 Dose: 1 drop Calcium Acetate (Phoslo) 1,334 mg PO 0900,1300,1800 ON [facility] Last Admin: 03/15/17 17:17 Dose: 1,334 mg Cilostazol (Pletal) 100 mg PO BID [facility] Last Admin: 03/15/17 17:13 Dose: 100 mg Clopidogrel Bisulfate (Plavix) 75 mg PO [facility] Last Admin: 03/14/17 21:50 Dose: 75 mg Dextrose (Dextrose 50% Inj) 0 ml IV STAT PRN; Protocol PRN Reason: Hyglycemia Protocol Dextrose (Glutose 15) 0 gm PO ONCE PRN; Protocol PRN Reason: Hypoglycemia Protocol Dorzolamide HCl (Trusopt) 1 drop OD TID ON [facility] Last Admin: 03/15/17 17:10 Dose: 1 drop Ferrous Sulfate (Feosol) 325 mg PO DAILY [facility] Last Admin: 03/15/17 08:22 Dose: 325 mg Gabapentin (Neurontin) 300 mg PO Q8 [facility] Last Admin: 03/15/17 13:56 Dose: 300 mg Glucagon (Glucagen Diagnostic Kit) 0 mg IM STAT PRN; Protocol PRN Reason: Hypoglycemia Protocol Insulin Detemir (Levemir) 10 units SC [facility] Last Admin: 03/14/17 21:51 Dose: 10 units Insulin Human Lispro (Humalog) 0 units SC [facility] PRN Reason: Protocol Last Admin: 03/15/17 17:12 Dose: 4 units Metoprolol Tartrate (Lopressor) 50 mg PO Q12 [facility] Last Admin: 03/15/17 08:22 Dose: 50 mg Midodrine (Proamatine) 10 mg PO TID [facility] Last Admin: 03/15/17 17:13 Dose: 10 mg Sodium Chloride ([place] Nasal [place]) 2 sprays ROSALINA Q4 PRN PRN Reason: Nasal congestion Tramadol HCl (Ultram) 50 mg PO Q12 PRN PRN Reason: Pain, moderate (4-7) Last Admin: 03/15/17 09:35 Dose: 50 mg - Labs Labs: 03/15/17 06:41 03/15/17 06:41
[2017-03-15] MEDS: Insulin Detemir 100 Units/ml Inj SC SCH (21:37)
[2017-03-16] MEDS: Insulin Lispro (humaLOG) 100 Units/ml Inj SC SCH ×4 (07:01→21:30)
[2017-03-16] MEDS: Brimonidine 0.2% 50 DROP/5 ML BOTTLE OD SCH ×3 (09:01→17:09)
[2017-03-16] MEDS: Dorzolamide 2% Ophth Soln OD SCH ×3 (09:04→17:09)
[2017-03-16] MEDS: Cilostazol 100 mg Tab UD PO SCH ×2 (09:05→17:10)
--- NOTE | 2017-03-16 16:43 | CP.PCM.PCO ---
Assessment/Plan - Assessment and Plan (Free Text) Assessment: Pt seen, says her speech is improved Lopressor dose adjusted.
[2017-03-16] MEDS: Sodium Chloride 0.9% 1,000 ML IV SCH (18:44)
--- NOTE | 2017-03-16 19:12 | CP.PCM.PN ---
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 Last Admin: 03/15/17 21:39 Dose: 300 mg Atorvastatin Calcium (Lipitor) 80 mg PO [facility] Last Admin: 03/15/17 21:38 Dose: 80 mg Brimonidine Tartrate (Alphagan 0.2% Opht) [address] [facility] Last Admin: 03/16/17 17:09 Dose: 1 drop Calcium Acetate (Phoslo) 1,334 mg PO 0900,1300,1800 [facility] Last Admin: 03/16/17 17:11 Dose: 1,334 mg Cilostazol (Pletal) [address] [facility] Last Admin: 03/16/17 17:10 Dose: 100 mg Clopidogrel Bisulfate (Plavix) 75 mg PO [facility] Last Admin: 03/15/17 21:39 Dose: 75 mg Dextrose (Dextrose 50% Inj) 0 ml IV STAT PRN; Protocol PRN Reason: Hyglycemia Protocol Dextrose (Glutose 15) 0 gm PO ONCE PRN; Protocol PRN Reason: Hypoglycemia Protocol Dorzolamide HCl (Trusopt) [address] [facility] Last Admin: 03/16/17 17:09 Dose: 1 drop Ferrous Sulfate (Feosol) [address] [facility] Last Admin: 03/16/17 09:02 Dose: 325 mg Gabapentin (Neurontin) [address] [facility] Last Admin: 03/16/17 13:51 Dose: 300 mg Glucagon (Glucagen Diagnostic Kit) 0 mg IM STAT PRN; Protocol PRN Reason: Hypoglycemia Protocol Sodium Chloride (Sodium Chloride 0.9%) 1,000 mls @ 75 mls/hr IV .[id number] [facility] Stop: 03/17/17 17:59 Last Admin: 03/16/17 18:44 Dose: 75 mls/hr Insulin Detemir (Levemir) 12 units SC HS [facility] Insulin Human Lispro (Humalog) [address] [facility] PRN Reason: Protocol Last Admin: 03/16/17 17:09 Dose: 2 units Metoprolol Tartrate (Lopressor) [address] [facility] Last Admin: 03/16/17 10:45 Dose: Not Given Midodrine (Proamatine) [address] [facility] Last Admin: 03/16/17 17:10 Dose: 10 mg Sodium Chloride ([place] Nasal [place]) 2 sprays ROSALINA Q4 PRN PRN Reason: Nasal congestion Tramadol HCl (Ultram) 50 mg PO Q12 PRN PRN Reason: Pain, moderate (4-7) Last Admin: 03/16/17 09:14 Dose: 50 mg - Labs Labs: 03/15/17 06:41 03/15/17 06:41
[2017-03-16] MEDS: Insulin Detemir 100 Units/ml Inj SC SCH (21:44)
[2017-03-17] MEDS: Insulin Lispro (humaLOG) 100 Units/ml Inj SC SCH ×4 (07:11→21:00)
[2017-03-17] MEDS: Sodium Chloride 0.9% 1,000 ML IV SCH (07:38)
[2017-03-17] MEDS: Dorzolamide 2% Ophth Soln OD SCH ×3 (09:04→17:46)
[2017-03-17] MEDS: Brimonidine 0.2% 50 DROP/5 ML BOTTLE OD SCH ×3 (09:05→17:46)
[2017-03-17] MEDS: Cilostazol 100 mg Tab UD PO SCH ×2 (09:16→17:46)
--- NOTE | 2017-03-17 14:52 | CP.PCM.PN ---
Subjective - Date & Time of Evaluation Date of Evaluation: 03/17/17 Time of Evaluation: 07:50 - Subjective Subjective: Patient seen and examined at bedside, in no acute distress, speech is much improved, reports having normal urine output. Last bowel movement was 2 days ago. Denies chest pain, dizziness, SOB or weakness. Patient otherwise has no complaints or concerns at this time, is tolerating PT/OT, PO diet. Objective - Vital Signs/Intake and Output Vital Signs (last 24 hours): Temp Pulse Resp BP Pulse Ox 97.7 F 85 22 107/69 98 03/17/17 08:18 03/17/17 09:16 03/17/17 08:18 03/17/17 09:16 03/17/17 08:18 - Medications Medications: Current Medications Acetaminophen (Tylenol 325mg Tab) 650 mg PO Q6 PRN PRN Reason: Pain, Mild (1-3) Allopurinol (Zyloprim) 300 mg PO [facility] Last Admin: 03/16/17 21:28 Dose: 300 mg Atorvastatin Calcium (Lipitor) 80 mg PO [facility] Last Admin: 03/16/17 21:26 Dose: 80 mg Brimonidine Tartrate (Alphagan 0.2% Opht) 1 drop OD TID [facility] Last Admin: 03/17/17 12:21 Dose: 1 drop Calcium Acetate (Phoslo) 1,334 mg PO 0900,1300,1800 [facility] Last Admin: 03/17/17 12:23 Dose: 1,334 mg Cilostazol (Pletal) 100 mg PO BID [facility] Last Admin: 03/17/17 09:16 Dose: 100 mg Clopidogrel Bisulfate (Plavix) 75 mg PO [facility] Last Admin: 03/16/17 21:28 Dose: 75 mg Dextrose (Dextrose 50% Inj) 0 ml IV STAT PRN; Protocol PRN Reason: Hyglycemia Protocol Dextrose (Glutose 15) 0 gm PO ONCE PRN; Protocol PRN Reason: Hypoglycemia Protocol Dorzolamide HCl (Trusopt) 1 drop OD TID [facility] Last Admin: 03/17/17 12:21 Dose: 1 drop Ferrous Sulfate (Feosol) 325 mg PO DAILY [facility] Last Admin: 03/17/17 09:15 Dose: 325 mg Gabapentin (Neurontin) 300 mg PO Q8 [facility] Last Admin: 03/17/17 14:07 Dose: 300 mg Glucagon (Glucagen Diagnostic Kit) 0 mg IM STAT PRN; Protocol PRN Reason: Hypoglycemia Protocol Sodium Chloride (Sodium Chloride 0.9%) 1,000 mls @ 75 mls/hr IV .[id number] [facility] Stop: 03/17/17 17:59 Last Admin: 03/17/17 07:38 Dose: Not Given Insulin Detemir (Levemir) 12 units SC HS [facility] Last Admin: 03/16/17 21:44 Dose: 12 units Insulin Human Lispro (Humalog) 0 units SC ACHS [facility] PRN Reason: Protocol Last Admin: 03/17/17 12:22 Dose: 3 units Metoprolol Tartrate (Lopressor) 25 mg PO Q12 [facility] Last Admin: 03/17/17 09:16 Dose: 25 mg Midodrine (Proamatine) 10 mg PO TID [facility] Last Admin: 03/17/17 12:22 Dose: 10 mg Sodium Chloride ([place] Nasal [place]) 2 sprays ROSALINA Q4 PRN PRN Reason: Nasal congestion Tramadol HCl (Ultram) 50 mg PO Q12 PRN PRN Reason: Pain, moderate (4-7) Last Admin: 03/17/17 09:49 Dose: 50 mg - Labs Labs: 03/15/17 06:41 03/15/17 06:41 - Constitutional Appears: Well, Non-toxic - Head Exam Head Exam: ATRAUMATIC, NORMOCEPHALIC - Eye Exam Eye Exam: EOMI (in right eye; left eye not examined due to blindness), PERRL ( in right eye, left eye hazy over conjunctiva) - ENT Exam ENT Exam: Mucous Membranes Moist - Neck Exam Neck Exam: Full ROM. absent: Lymphadenopathy - Respiratory Exam Respiratory Exam: Clear to Ausculation Bilateral, NORMAL BREATHING PATTERN. absent: Rales, Rhonchi, Wheezes - Cardiovascular Exam Cardiovascular Exam: REGULAR RHYTHM, +S1, +S2 - GI/Abdominal Exam GI & Abdominal Exam: Soft (obese). absent: Distended, Tenderness - Extremities Exam Extremities Exam: Full ROM (strength 5/5 in left UE and bilateral lower extremities, right arm weakness improved 3/5). 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 Patient has PMHx of CKD stage 3, Anemia, Asthma, COPD, IDDM, HTN, peripheral artery disease (2011 R LE balloon angioplasty, 2012 L LE balloon angioplasty), hypercholesterolemia, glaucoma, L eye blindness, TIA (2002: dizziness, vertigo; 2003: dysarthria). Patient has had intermittent episodes of low BP and we decreased her metoprolol to 25mg PO BID, otherwise pt is stable, speech improving, verbally answers with 1-2 words and communicates via head gestures and written notes. 1. 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 No acute ICH. (see full report) -continue Plavix 75 PO QHS but no Aspirin or Heparin per neurologist d/t increase bleeding risk -MRI Brain without contrast: Increasing extent of the left parietal lobe diffusion abnormality with increasing edema and localized mass effect, re- demonstration of other chronic infarcts. -PT/OT, speech evaluation appreciated: will follow recommendations 2. IDDM (insulin dependent diabetes mellitus) -uncontrolled, random glucose today 172 mg/dL -HbA1c 7.8 (03/08/17) -Insulin Lispro SC ACHS sliding scale -Insulin Detemir 10 units SC QHS -hypoglycemia protocol -Lipid panel wnl 03/11/17 -Atorvastatin 80mg PO HS -diet: Pureed [place]/ Thick Liquids Moderate Consistent CHO Heart Healthy diet 3. Peripheral arterial disease -history of PVD -s/p 2011 R balloon angioplasty -s/p 2012 L balloon angioplasty -Continue with Cilostazol 100mg PO BID 4. CKD (chronic kidney disease) stage 3, GFR 30-59 ml/min -improved, stable -at baseline -BUN/Cr :30/2.0 on 03/15/17 -f/u serum creatinine 5. HTN (hypertension) -controlled, BP low this AM 107/69 mmHg -decreased Metoprolol to 25 mg PO Q12 -Monitor BP 6. COPD (chronic obstructive pulmonary disease) -stable, asymptomatic -CXR: No active pulmonary disease -withhold home meds for now 8. Low back pain -likely arthritic and obesity related -Continue Neurotin 300 mg PO TID -Tylenol 650mg PO Q6 PRN mild pain (1-3) -Tramadol 50mg PO Q12 PRN moderate pain (4-7) 9. Gout -Continue Allopurinol 300mg PO HS 10. DVT Prophylactic -high risk of bleeding no lovenox and no heparin -SCD's for now
--- NOTE | 2017-03-17 16:33 | CP.PCM.PN ---
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 rehab patient continue current care denies sob/cp Objective - Vital Signs/Intake and Output Vital Signs (last 24 hours): Temp Pulse Resp BP Pulse Ox 97.7 F 85 22 107/69 98 03/17/17 08:18 03/17/17 09:16 03/17/17 08:18 03/17/17 09:16 03/17/17 08:18 - Medications Medications: Current Medications Acetaminophen (Tylenol 325mg Tab) 650 mg PO Q6 PRN PRN Reason: Pain, Mild (1-3) Allopurinol (Zyloprim) 300 mg PO HS [facility] Last Admin: 03/16/17 21:28 Dose: 300 mg Atorvastatin Calcium (Lipitor) 80 mg PO HS [facility] Last Admin: 03/16/17 21:26 Dose: 80 mg Brimonidine Tartrate (Alphagan 0.2% Opht) 1 drop OD TID [facility] Last Admin: 03/17/17 12:21 Dose: 1 drop Calcium Acetate (Phoslo) 1,334 mg PO 0900,1300,1800 [facility] Last Admin: 03/17/17 12:23 Dose: 1,334 mg Cilostazol (Pletal) 100 mg PO BID [facility] Last Admin: 03/17/17 09:16 Dose: 100 mg Clopidogrel Bisulfate (Plavix) [address] [facility] Last Admin: 03/16/17 21:28 Dose: 75 mg Dextrose (Dextrose 50% Inj) 0 ml IV STAT PRN; Protocol PRN Reason: Hyglycemia Protocol Dextrose (Glutose 15) 0 gm PO ONCE PRN; Protocol PRN Reason: Hypoglycemia Protocol Dorzolamide HCl (Trusopt) 1 drop OD TID [facility] Last Admin: 03/17/17 12:21 Dose: 1 drop Ferrous Sulfate (Feosol) 325 mg PO DAILY [facility] Last Admin: 03/17/17 09:15 Dose: 325 mg Gabapentin (Neurontin) 300 mg PO Q8 [facility] Last Admin: 03/17/17 14:07 Dose: 300 mg Glucagon (Glucagen Diagnostic Kit) 0 mg IM STAT PRN; Protocol PRN Reason: Hypoglycemia Protocol Sodium Chloride (Sodium Chloride 0.9%) 1,000 mls @ 75 mls/hr IV .[id number] [facility] Stop: 03/17/17 17:59 Last Admin: 03/17/17 07:38 Dose: Not Given Insulin Detemir (Levemir) 12 units SC HS [facility] Last Admin: 03/16/17 21:44 Dose: 12 units Insulin Human Lispro (Humalog) 0 units SC ACHS [facility] PRN Reason: Protocol Last Admin: 03/17/17 12:22 Dose: 3 units Metoprolol Tartrate (Lopressor) 25 mg PO Q12 [facility] Last Admin: 03/17/17 09:16 Dose: 25 mg Midodrine (Proamatine) 10 mg PO TID [facility] Last Admin: 03/17/17 12:22 Dose: 10 mg Sodium Chloride ([place] Nasal [place]) 2 sprays ROSALINA Q4 PRN PRN Reason: Nasal congestion Tramadol HCl (Ultram) 50 mg PO Q12 PRN PRN Reason: Pain scale 4-10 - Labs Labs: 03/15/17 06:41 03/15/17 06:41
[2017-03-17] MEDS: Insulin Detemir 100 Units/ml Inj SC SCH (21:41)
[2017-03-18] MEDS: Insulin Lispro (humaLOG) 100 Units/ml Inj SC SCH ×4 (06:50→21:53)
[2017-03-18] MEDS: Cilostazol 100 mg Tab UD PO SCH ×2 (08:26→17:12)
[2017-03-18] MEDS: Dorzolamide 2% Ophth Soln OD SCH ×3 (08:27→17:11)
[2017-03-18] MEDS: Brimonidine 0.2% 50 DROP/5 ML BOTTLE OD SCH ×3 (08:27→17:12)
--- NOTE | 2017-03-18 14:51 | CP.PCM.CON ---
History of Present Illness - History of Present Illness History of Present Illness: THE PATIENT IS A 71 YEAR OLD FEMALE WITH A HISTORY OF A RECENT CEREBRAL INFARCT WITH DIFFICULTY RUE WAEKNESS TO WAS ADMIITED TO AND NOW DISCHARGED TO ACUTE REHAB. SHE HAS A HISTORY OF COPD, SINUS TACHYCARDIA, CRF, AMEMIA, DM, HYERLIPIDEMIA. SHE NEVER REALLY HAD HYPERTENSION IN THE PAST AND THE METOPROLOL WAS STARTED BY ME YEARS AGO FOR RAPID SINUS TACHYCARDIA. SHE DOES NOT HAVE CAD, [place] HISTORY OR ANGINA. HER SYSTOLIC BP WAS MILDLY ELEVATED IN THE ER UPON ADMISSION TO AT 160 MMHG. SHE WAS STARTED ON METOPROLOL 50 MGS PO BID BUT SHE WAS HYPOTENSIVE AT TIMES WITH A BP LOW 78/43 AND SHE HAD A POSITIVE TILT TEST WITH SIGNIFICANT HYPOTENSION UPON STANDING. THE METOPROLOL WAS LOWERED TO 25 MGS PO BID AND THE BP WAS STILL LOW AT TIMES AND PROAMATINE WAS STARTED. CARDIOLOGY WAS NOW CALLED TO EVALUATE HER FOR THE HYPOTENSION. Past Patient History - Past Medical History & Family History Past Medical History?: Yes - Past Social History Smoking Status: Former Smoker Alcohol: None Drugs: Denies Home Situation {Lives}: With Family (elevator) - CARDIAC Hx Cardiac Disorders: Yes Hx Hypercholesterolemia: Yes Hx Hypertension: Yes - PULMONARY Hx Asthma: Yes Hx Chronic Obstructive Pulmonary Disease (COPD): Yes - NEUROLOGICAL HX Cerebrovascular Accident: Yes - HEENT Hx HEENT Problems: Yes Hx Blind: Yes (Left eye no vision) - RENAL Hx Chronic Kidney Disease: Yes (stage 3) - ENDOCRINE/METABOLIC Hx Diabetes Mellitus Type 2: Yes - HEMATOLOGICAL/ONCOLOGICAL Hx Anemia: Yes - INTEGUMENTARY Hx Dermatological Problems: No - MUSCULOSKELETAL/RHEUMATOLOGICAL Hx Back Pain: Yes Hx Falls: Yes (related to stroke) - GASTROINTESTINAL Hx Gastrointestinal Disorders: No HX Swallowing Problems: Yes - GENITOURINARY/GYNECOLOGICAL Hx Genitourinary Disorders: No - PSYCHIATRIC Hx Psychophysiologic Disorder: No Hx Substance Use: No - SURGICAL HISTORY Hx Tonsillectomy: Yes (1947) - ANESTHESIA Hx Anesthesia: Yes Hx Anesthesia Reactions: No Hx Malignant Hyperthermia: No Meds Allergies/Adverse Reactions: Allergies Allergy/AdvReac Type Severity Reaction Status Date / Time pregabalin [From Lyrica] Allergy Nausea, Verified 03/13/17 18:25 Generalize pain - Medications Medications: Current Medications Acetaminophen (Tylenol 325mg Tab) 650 mg PO Q6 PRN PRN Reason: Pain, Mild (1-3) Allopurinol (Zyloprim) 300 mg PO [facility] Last Admin: 03/17/17 21:24 Dose: 300 mg Atorvastatin Calcium (Lipitor) 80 mg PO [facility] Last Admin: 03/17/17 21:24 Dose: 80 mg Brimonidine Tartrate (Alphagan 0.2% Opht) 1 drop OD TID [facility] Last Admin: 03/18/17 12:20 Dose: 1 drop Calcium Acetate (Phoslo) 1,334 mg PO 0900,1300,1800 [facility] Last Admin: 03/18/17 12:20 Dose: 1,334 mg Cilostazol (Pletal) 100 mg PO BID [facility] Last Admin: 03/18/17 08:26 Dose: 100 mg Clopidogrel Bisulfate (Plavix) 75 mg PO [facility] Last Admin: 03/17/17 21:24 Dose: 75 mg Dextrose (Dextrose 50% Inj) 0 ml IV STAT PRN; Protocol PRN Reason: Hyglycemia Protocol Dextrose (Glutose 15) 0 gm PO ONCE PRN; Protocol PRN Reason: Hypoglycemia Protocol Dorzolamide HCl (Trusopt) 1 drop OD TID [facility] Last Admin: 03/18/17 12:20 Dose: 1 drop Ferrous Sulfate (Feosol) 325 mg PO DAILY [facility] Last Admin: 03/18/17 08:26 Dose: 325 mg Gabapentin (Neurontin) 300 mg PO Q8 [facility] Last Admin: 03/18/17 14:28 Dose: 300 mg Glucagon (Glucagen Diagnostic Kit) 0 mg IM STAT PRN; Protocol PRN Reason: Hypoglycemia Protocol Insulin Detemir (Levemir) 12 units SC [facility] Last Admin: 03/17/17 21:41 Dose: 12 units Insulin Human Lispro (Humalog) 0 units SC [facility] PRN Reason: Protocol Last Admin: 03/18/17 12:19 Dose: 4 units Metoprolol Tartrate (Lopressor) 25 mg PO Q12 [facility] Last Admin: 03/18/17 08:28 Dose: 25 mg Midodrine (Proamatine) 10 mg PO TID [facility] Last Admin: 03/18/17 12:20 Dose: 10 mg Sodium Chloride ([place] Nasal [place]) 2 sprays ROSALINA Q4 PRN PRN Reason: Nasal congestion Tramadol HCl (Ultram) 50 mg PO Q12 PRN PRN Reason: Pain scale 4-10 Last Admin: 03/18/17 08:29 Dose: 50 mg Physical Exam - Respiratory Exam Respiratory Exam: Clear to Auscultation Bilateral - Cardiovascular Exam Cardiovascular Exam: REGULAR RHYTHM, +S1, +S2 - Neurological Exam Additional comments: RUE WEAKNESS DIFFICULTY SPEAKING - Additional Findings Additional findings: BLOOD PRESSURE RECORDINGS WERE LOW 78/43, 93/53 AND 89/54 RECENT EKG NSR, R 80 Results - Vital Signs Recent Vital Signs: Last Vital Signs Temp 97.2 F L 03/18/17 07:45 Pulse 82 03/18/17 08:28 Resp 18 03/18/17 07:45 BP 138/70 03/18/17 08:28 Pulse Ox 97 03/18/17 07:45 - Labs Result Diagrams: 03/15/17 06:41 03/15/17 06:41 Labs: Laboratory Results - last 24 hr 03/17/17 03/17/17 03/18/17 16:02 20:33 06:45 POC Glucose (mg/dL) 176 H 184 H 190 H 03/18/17 11:03 POC Glucose (mg/dL) 256 H Assessment & Plan - Assessment and Plan (Free Text) Assessment: HYPOTENSION MOST PROBABLY FROM METOPROLOL RECENT CEREBRAL INFARCT COPD SINUS TACHYCARDIA FROM COPD PAD DM GLAUCOMA AND BLINDNESS Plan: STOP METOPROLOL AND OBSERVE BP CONTINUE PROAMATINE, CLOPIDOGREL, PLETAL, ATORVASTATIN
[2017-03-18] MEDS: Insulin Detemir 100 Units/ml Inj SC SCH (21:54)
[2017-03-19] MEDS: Insulin Lispro (humaLOG) 100 Units/ml Inj SC SCH ×4 (06:58→21:27)
[2017-03-19] MEDS: Cilostazol 100 mg Tab UD PO SCH ×2 (08:26→16:58)
[2017-03-19] MEDS: Brimonidine 0.2% 50 DROP/5 ML BOTTLE OD SCH ×3 (08:27→16:58)
[2017-03-19] MEDS: Dorzolamide 2% Ophth Soln OD SCH ×3 (08:30→16:58)
--- NOTE | 2017-03-19 13:38 | CP.PCM.PN ---
Subjective - Date & Time of Evaluation Date of Evaluation: 03/19/17 Time of Evaluation: 12:45 - Subjective Subjective: NO NEW COMPLAINTS Objective - Vital Signs/Intake and Output Vital Signs (last 24 hours): Temp Pulse Resp BP Pulse Ox 97.5 F L 83 18 115/64 97 03/19/17 08:04 03/19/17 08:04 03/19/17 08:04 03/19/17 08:04 03/19/17 08:04 - Medications Medications: Current Medications Acetaminophen (Tylenol 325mg Tab) 650 mg PO Q6 PRN PRN Reason: Pain, Mild (1-3) Allopurinol (Zyloprim) 300 mg PO [facility] Last Admin: 03/18/17 21:36 Dose: 300 mg Atorvastatin Calcium (Lipitor) 80 mg PO [facility] Last Admin: 03/18/17 21:37 Dose: 80 mg Brimonidine Tartrate (Alphagan 0.2% Opht) 1 drop OD TID [facility] Last Admin: 03/19/17 12:18 Dose: 1 drop Calcium Acetate (Phoslo) 1,334 mg PO 0900,1300,1800 [facility] Last Admin: 03/19/17 12:19 Dose: 1,334 mg Cilostazol (Pletal) 100 mg PO BID [facility] Last Admin: 03/19/17 08:26 Dose: 100 mg Clopidogrel Bisulfate (Plavix) 75 mg PO [facility] Last Admin: 03/18/17 21:35 Dose: 75 mg Dextrose (Dextrose 50% Inj) 0 ml IV STAT PRN; Protocol PRN Reason: Hyglycemia Protocol Dextrose (Glutose 15) 0 gm PO ONCE PRN; Protocol PRN Reason: Hypoglycemia Protocol Dorzolamide HCl (Trusopt) 1 drop OD TID [facility] Last Admin: 03/19/17 12:20 Dose: 1 drop Ferrous Sulfate (Feosol) 325 mg PO DAILY [facility] Last Admin: 03/19/17 08:27 Dose: 325 mg Gabapentin (Neurontin) 300 mg PO Q8 [facility] Last Admin: 03/19/17 13:08 Dose: 300 mg Glucagon (Glucagen Diagnostic Kit) 0 mg IM STAT PRN; Protocol PRN Reason: Hypoglycemia Protocol Insulin Detemir (Levemir) 12 units SC [facility] Last Admin: 03/18/17 21:54 Dose: 12 units Insulin Human Lispro (Humalog) 0 units SC [facility] PRN Reason: Protocol Last Admin: 03/19/17 12:04 Dose: 8 units Metoprolol Tartrate (Lopressor) 25 mg PO Q12 [facility] Last Admin: 03/18/17 08:28 Dose: 25 mg Midodrine (Proamatine) 10 mg PO TID [facility] Last Admin: 03/19/17 12:20 Dose: 10 mg Sodium Chloride ([place] Nasal [place]) 2 sprays ROSALINA Q4 PRN PRN Reason: Nasal congestion Tramadol HCl (Ultram) 50 mg PO Q12 PRN PRN Reason: Pain scale 4-10 Last Admin: 03/18/17 08:29 Dose: 50 mg - Labs Labs: 03/15/17 06:41 03/15/17 06:41 - Respiratory Exam Respiratory Exam: Clear to Ausculation Bilateral - Cardiovascular Exam Cardiovascular Exam: REGULAR RHYTHM, +S1, +S2 - Additional Findings Additional findings: BLOOD PRESSURES REMAIN GOOD OFF METOPROLOL AND HEART RATES HAVE REMAINED NORMAL Assessment and Plan - Assessment and Plan (Free Text) Assessment: RECENT CEREBRAL INFARCT HYPOTENSION FROM METOPROLOL-IMPROVED AFTER IT WAS DISCONTINUED COPD DM HYPERLIPIDEMIA Plan: CONTINUE ASPIRIN, CLOPIDOGREL, ATORVASTATIN AND PROAMATINE
[2017-03-19] MEDS: Insulin Detemir 100 Units/ml Inj SC SCH (21:28)
[2017-03-20] MEDS: Insulin Lispro (humaLOG) 100 Units/ml Inj SC SCH ×4 (07:06→21:00)
[2017-03-20] MEDS: Brimonidine 0.2% 50 DROP/5 ML BOTTLE OD SCH ×3 (08:21→16:55)
[2017-03-20] MEDS: Dorzolamide 2% Ophth Soln OD SCH ×3 (08:21→16:55)
[2017-03-20] MEDS: Cilostazol 100 mg Tab UD PO SCH ×2 (08:22→16:56)
--- NOTE | 2017-03-20 12:46 | CP.PCM.PN ---
Subjective - Date & Time of Evaluation Date of Evaluation: 03/20/17 Time of Evaluation: 08:10 - Subjective Subjective: Patient seen and examined at bedside, tolerating PT, cooperative with exam. Patient denies chest pain, SOB, headaches, weakness or dizziness. Per conversation with nurse, pt's BP was systolic 140's/diastolic 70's during PT. Patient also had a bowel movement today. She has no concerns or complaints at this time. Objective - Vital Signs/Intake and Output Vital Signs (last 24 hours): Temp Pulse Resp BP Pulse Ox 97.5 F L 98 H 21 118/71 100 03/20/17 08:10 03/20/17 08:10 03/20/17 08:10 03/20/17 08:10 03/20/17 08:10 - Medications Medications: Current Medications Acetaminophen (Tylenol 325mg Tab) 650 mg PO Q6 PRN PRN Reason: Pain, Mild (1-3) Allopurinol (Zyloprim) 300 mg PO [facility] Last Admin: 03/19/17 21:27 Dose: 300 mg Atorvastatin Calcium (Lipitor) 80 mg PO [facility] Last Admin: 03/19/17 21:27 Dose: 80 mg Brimonidine Tartrate (Alphagan 0.2% Opht) 1 drop OD TID [facility] Last Admin: 03/20/17 08:21 Dose: 1 drop Calcium Acetate (Phoslo) 1,334 mg PO 0900,1300,1800 [facility] Last Admin: 03/20/17 08:21 Dose: 1,334 mg Cilostazol (Pletal) 100 mg PO BID [facility] Last Admin: 03/20/17 08:22 Dose: 100 mg Clopidogrel Bisulfate (Plavix) 75 mg PO [facility] Last Admin: 03/19/17 21:27 Dose: 75 mg Dextrose (Dextrose 50% Inj) 0 ml IV STAT PRN; Protocol PRN Reason: Hyglycemia Protocol Dextrose (Glutose 15) 0 gm PO ONCE PRN; Protocol PRN Reason: Hypoglycemia Protocol Docusate Sodium (Colace) 100 mg PO DAILY [facility] Last Admin: 03/20/17 11:50 Dose: Not Given Dorzolamide HCl (Trusopt) 1 drop OD TID [facility] Last Admin: 03/20/17 08:21 Dose: 1 drop Ferrous Sulfate (Feosol) 325 mg PO DAILY [facility] Last Admin: 03/20/17 08:21 Dose: 325 mg Gabapentin (Neurontin) 300 mg PO Q8 [facility] Last Admin: 03/20/17 07:04 Dose: 300 mg Glucagon (Glucagen Diagnostic Kit) 0 mg IM STAT PRN; Protocol PRN Reason: Hypoglycemia Protocol Insulin Detemir (Levemir) 12 units SC HS [facility] Last Admin: 03/19/17 21:28 Dose: 12 units Insulin Detemir (Levemir) 10 units SC QAM [facility] Insulin Human Lispro (Humalog) 0 units SC ACHS [facility] PRN Reason: Protocol Last Admin: 03/20/17 07:06 Dose: 2 units Midodrine (Proamatine) 10 mg PO TID [facility] Last Admin: 03/20/17 08:21 Dose: 10 mg Sodium Chloride ([place] Nasal [place]) 2 sprays ROSALINA Q4 PRN PRN Reason: Nasal congestion Tramadol HCl (Ultram) 50 mg PO Q12 PRN PRN Reason: Pain scale 4-10 Last Admin: 03/20/17 08:54 Dose: 50 mg - Labs Labs: 03/15/17 06:41 03/15/17 06:41 - Constitutional Appears: Well, No Acute Distress, Older Than Stated Age - Head Exam Head Exam: ATRAUMATIC, NORMOCEPHALIC - Eye Exam Eye Exam: EOMI (in right eye; left eye not examined due to blindness), PERRL ( in right eye, left eye hazy over conjunctiva) - ENT Exam ENT Exam: Mucous Membranes Moist - Neck Exam Neck Exam: Full ROM. absent: Lymphadenopathy - Respiratory Exam Respiratory Exam: Clear to Ausculation Bilateral, NORMAL BREATHING PATTERN - Cardiovascular Exam Cardiovascular Exam: REGULAR RHYTHM, +S1, +S2 - GI/Abdominal Exam GI & Abdominal Exam: Soft (obese), Normal Bowel Sounds. 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 Patient has PMHx of CKD stage 3, Anemia, Asthma, COPD, IDDM, HTN, peripheral artery disease (2011 R LE balloon angioplasty, 2012 L LE balloon angioplasty), hypercholesterolemia, glaucoma, L eye blindness, TIA (2002: dizziness, vertigo; 2003: dysarthria). Patient blood pressure has normalized s/p discontinuation of Metoprolol. Patient is stable, speech improving, verbally answers with 1-2 words and communicates via head gestures and written notes, tolerating PT well. 1. 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 No acute ICH. (see full report) -continue Plavix 75 PO QHS but no Aspirin or Heparin per neurologist d/t increase bleeding risk -MRI Brain without contrast: Increasing extent of the left parietal lobe diffusion abnormality with increasing edema and localized mass effect, re- demonstration of other chronic infarcts. -PT/OT, speech evaluation appreciated: will follow recommendations 2. IDDM (insulin dependent diabetes mellitus) -uncontrolled, POC glucose today 308 mg/dL at noon -HbA1c 7.8 (03/08/17) -start Insulin Detemir 10 units SC AM -continue Insulin Detemir 12 units SC QHS -Insulin Lispro SC ACHS sliding scale -hypoglycemia protocol -Lipid panel wnl 03/11/17 -Atorvastatin 80mg PO HS -diet: Pureed [place]/ Thick Liquids Moderate Consistent CHO Heart Healthy diet 3. Peripheral arterial disease -history of PVD -s/p 2011 R balloon angioplasty -s/p 2012 L balloon angioplasty -Continue with Cilostazol 100mg PO BID 4. CKD (chronic kidney disease) stage 3, GFR 30-59 ml/min -improved, stable -at baseline -BUN/Cr :30/2.0 on 03/15/17 -f/u BMP 5. HTN (hypertension) -controlled, BP low this AM 118/71 mmHg -discontinued Metoprolol -Monitor BP 6. COPD (chronic obstructive pulmonary disease) -stable, asymptomatic -CXR: No active pulmonary disease -withhold home meds for now 8. Low back pain -likely arthritic and obesity related -Continue Neurotin 300 mg PO TID -Tylenol 650mg PO Q6 PRN mild pain (1-3) -Tramadol 50mg PO Q12 PRN moderate pain (4-7) 9. Gout -Continue Allopurinol 300mg PO HS 10. DVT Prophylactic -high risk of bleeding no lovenox and no heparin -pt is on Plavix and Cilostazol -SCD's for now
--- NOTE | 2017-03-20 13:08 | CP.PCM.PN ---
Subjective - Date & Time of Evaluation Date of Evaluation: 03/20/17 Time of Evaluation: 09:00 - Subjective Subjective: NO NEW COMPLAINTS Objective - Vital Signs/Intake and Output Vital Signs (last 24 hours): Temp Pulse Resp BP Pulse Ox 97.5 F L 98 H 21 118/71 100 03/20/17 08:10 03/20/17 08:10 03/20/17 08:10 03/20/17 08:10 03/20/17 08:10 - Medications Medications: Current Medications Acetaminophen (Tylenol 325mg Tab) 650 mg PO Q6 PRN PRN Reason: Pain, Mild (1-3) Allopurinol (Zyloprim) 300 mg PO [facility] Last Admin: 03/19/17 21:27 Dose: 300 mg Atorvastatin Calcium (Lipitor) 80 mg PO [facility] Last Admin: 03/19/17 21:27 Dose: 80 mg Brimonidine Tartrate (Alphagan 0.2% Opht) 1 drop OD TID [facility] Last Admin: 03/20/17 12:51 Dose: 1 drop Calcium Acetate (Phoslo) 1,334 mg PO 0900,1300,1800 [facility] Last Admin: 03/20/17 12:52 Dose: 1,334 mg Cilostazol (Pletal) 100 mg PO BID [facility] Last Admin: 03/20/17 08:22 Dose: 100 mg Clopidogrel Bisulfate (Plavix) 75 mg PO [facility] Last Admin: 03/19/17 21:27 Dose: 75 mg Dextrose (Dextrose 50% Inj) 0 ml IV STAT PRN; Protocol PRN Reason: Hyglycemia Protocol Dextrose (Glutose 15) 0 gm PO ONCE PRN; Protocol PRN Reason: Hypoglycemia Protocol Docusate Sodium (Colace) 100 mg PO DAILY [facility] Last Admin: 03/20/17 11:50 Dose: Not Given Dorzolamide HCl (Trusopt) 1 drop OD TID [facility] Last Admin: 03/20/17 12:51 Dose: 1 drop Ferrous Sulfate (Feosol) 325 mg PO DAILY [facility] Last Admin: 03/20/17 08:21 Dose: 325 mg Gabapentin (Neurontin) 300 mg PO Q8 [facility] Last Admin: 03/20/17 07:04 Dose: 300 mg Glucagon (Glucagen Diagnostic Kit) 0 mg IM STAT PRN; Protocol PRN Reason: Hypoglycemia Protocol Insulin Detemir (Levemir) 12 units SC [facility] Last Admin: 03/19/17 21:28 Dose: 12 units Insulin Detemir (Levemir) 10 units SC QAM [facility] Insulin Human Lispro (Humalog) 0 units SC ACHS [facility] PRN Reason: Protocol Last Admin: 03/20/17 12:50 Dose: 6 units Midodrine (Proamatine) 10 mg PO TID [facility] Last Admin: 03/20/17 12:52 Dose: 10 mg Sodium Chloride ([place] Nasal [place]) 2 sprays ROSALINA Q4 PRN PRN Reason: Nasal congestion Tramadol HCl (Ultram) 50 mg PO Q12 PRN PRN Reason: Pain scale 4-10 Last Admin: 03/20/17 08:54 Dose: 50 mg - Labs Labs: 03/15/17 06:41 03/15/17 06:41 - Respiratory Exam Respiratory Exam: Clear to Ausculation Bilateral - Cardiovascular Exam Cardiovascular Exam: REGULAR RHYTHM, +S1, +S2 Assessment and Plan - Assessment and Plan (Free Text) Assessment: RECENT CEREBRAL INFARCT HYPOTENSION ON METOPROLOL-STABLE BP OFF OF IT COPD HYPOTHYROIDISM HYPERLIPIDEMIA Plan: CONTINUE TO OBSERVE BLOOD PRESSURE AND HEART RATE OFF METOPROLOL CONTINUE CLOPIDIGREL, ATORVASTATIN, PROAMATINE AND PLETAL
--- NOTE | 2017-03-20 18:43 | CP.PCM.PN ---
Subjective - Date & Time of Evaluation Date of Evaluation: 03/20/17 Time of Evaluation: 18:42 - Subjective Subjective: Patient seen in room with daughter present she is doing well able to say "thank you" now much improved right hand and no need to create antagonostic stretch to get flexion now. no pain continue current care Objective - Vital Signs/Intake and Output Vital Signs (last 24 hours): Temp Pulse Resp BP Pulse Ox 97.5 F L 115 H 21 118/71 99 03/20/17 08:10 03/20/17 15:51 03/20/17 08:10 03/20/17 08:10 03/20/17 15:51 - Medications Medications: Current Medications Acetaminophen (Tylenol 325mg Tab) 650 mg PO Q6 PRN PRN Reason: Pain, Mild (1-3) Allopurinol (Zyloprim) 300 mg PO HS [facility] Last Admin: 03/19/17 21:27 Dose: 300 mg Atorvastatin Calcium (Lipitor) 80 mg PO HS [facility] Last Admin: 03/19/17 21:27 Dose: 80 mg Brimonidine Tartrate (Alphagan 0.2% Opht) 1 drop OD TID [facility] Last Admin: 03/20/17 16:55 Dose: 1 drop Calcium Acetate (Phoslo) 1,334 mg PO 0900,1300,1800 [facility] Last Admin: 03/20/17 16:59 Dose: 1,334 mg Cilostazol (Pletal) 100 mg PO BID [facility] Last Admin: 03/20/17 16:56 Dose: 100 mg Clopidogrel Bisulfate (Plavix) 75 mg PO [facility] Last Admin: 03/19/17 21:27 Dose: 75 mg Dextrose (Dextrose 50% Inj) 0 ml IV STAT PRN; Protocol PRN Reason: Hyglycemia Protocol Dextrose (Glutose 15) 0 gm PO ONCE PRN; Protocol PRN Reason: Hypoglycemia Protocol Docusate Sodium (Colace) 100 mg PO DAILY [facility] Last Admin: 03/20/17 11:50 Dose: Not Given Dorzolamide HCl (Trusopt) 1 drop OD TID [facility] Last Admin: 03/20/17 16:55 Dose: 1 drop Ferrous Sulfate (Feosol) 325 mg PO DAILY [facility] Last Admin: 03/20/17 08:21 Dose: 325 mg Gabapentin (Neurontin) 300 mg PO Q8 [facility] Last Admin: 03/20/17 13:49 Dose: 300 mg Glucagon (Glucagen Diagnostic Kit) 0 mg IM STAT PRN; Protocol PRN Reason: Hypoglycemia Protocol Insulin Detemir (Levemir) 12 units SC HS [facility] Last Admin: 03/19/17 21:28 Dose: 12 units Insulin Detemir (Levemir) 10 units SC QAM [facility] Insulin Human Lispro (Humalog) 0 units SC ACHS [facility] PRN Reason: Protocol Last Admin: 03/20/17 16:55 Dose: 3 units Midodrine (Proamatine) 10 mg PO TID [facility] Last Admin: 03/20/17 16:56 Dose: 10 mg Sodium Chloride ([place] Nasal [place]) 2 sprays ROSALINA Q4 PRN PRN Reason: Nasal congestion Tramadol HCl (Ultram) 50 mg PO Q12 PRN PRN Reason: Pain scale 4-10 Last Admin: 03/20/17 08:54 Dose: 50 mg - Labs Labs: 03/15/17 06:41 03/15/17 06:41
[2017-03-20] MEDS: Insulin Detemir 100 Units/ml Inj SC SCH (21:28)
[2017-03-21] MEDS: Insulin Lispro (humaLOG) 100 Units/ml Inj SC SCH ×4 (06:51→21:30)
[2017-03-21] MEDS: Brimonidine 0.2% 50 DROP/5 ML BOTTLE OD SCH ×3 (08:03→17:25)
[2017-03-21] MEDS: Cilostazol 100 mg Tab UD PO SCH ×2 (08:06→17:26)
[2017-03-21] MEDS: Dorzolamide 2% Ophth Soln OD SCH ×3 (08:54→16:49)
[2017-03-21] MEDS: Insulin Detemir 100 Units/ml Inj SC SCH ×2 (08:54→21:23)
--- NOTE | 2017-03-21 12:39 | CP.PCM.PN ---
Subjective - Date & Time of Evaluation Date of Evaluation: 03/21/17 Time of Evaluation: 09:00 - Subjective Subjective: NO CHEST PAIN OR SOB FEELS BETTER Objective - Vital Signs/Intake and Output Vital Signs (last 24 hours): Temp Pulse Resp BP Pulse Ox 97.4 F L 70 20 100/68 97 03/21/17 09:00 03/21/17 09:00 03/21/17 09:00 03/21/17 09:45 03/20/17 20:11 - Medications Medications: Current Medications Acetaminophen (Tylenol 325mg Tab) 650 mg PO Q6 PRN PRN Reason: Pain, Mild (1-3) Allopurinol (Zyloprim) 300 mg PO HS [facility] Last Admin: 03/20/17 21:30 Dose: 300 mg Atorvastatin Calcium (Lipitor) 80 mg PO [facility] Last Admin: 03/20/17 21:30 Dose: 80 mg Brimonidine Tartrate (Alphagan 0.2% Opht) 1 drop OD TID [facility] Last Admin: 03/21/17 12:24 Dose: 1 drop Calcium Acetate (Phoslo) 1,334 mg PO 0900,1300,1800 [facility] Last Admin: 03/21/17 12:25 Dose: 1,334 mg Cilostazol (Pletal) 100 mg PO BID [facility] Last Admin: 03/21/17 08:06 Dose: 100 mg Clopidogrel Bisulfate (Plavix) 75 mg PO [facility] Last Admin: 03/20/17 21:30 Dose: 75 mg Dextrose (Dextrose 50% Inj) 0 ml IV STAT PRN; Protocol PRN Reason: Hyglycemia Protocol Dextrose (Glutose 15) 0 gm PO ONCE PRN; Protocol PRN Reason: Hypoglycemia Protocol Docusate Sodium (Colace) 100 mg PO DAILY [facility] Last Admin: 03/21/17 08:04 Dose: 100 mg Dorzolamide HCl (Trusopt) 1 drop OD TID [facility] Last Admin: 03/21/17 12:23 Dose: 1 drop Ferrous Sulfate (Feosol) 325 mg PO DAILY [facility] Last Admin: 03/21/17 08:05 Dose: 325 mg Gabapentin (Neurontin) 300 mg PO Q8 [facility] Last Admin: 03/21/17 06:29 Dose: 300 mg Glucagon (Glucagen Diagnostic Kit) 0 mg IM STAT PRN; Protocol PRN Reason: Hypoglycemia Protocol Insulin Detemir (Levemir) 12 units SC HS [facility] Last Admin: 03/20/17 21:28 Dose: 12 units Insulin Detemir (Levemir) 10 units SC QAM [facility] Last Admin: 03/21/17 08:54 Dose: 10 units Insulin Human Lispro (Humalog) 0 units SC ACHS [facility] PRN Reason: Protocol Last Admin: 03/21/17 12:22 Dose: 6 units Midodrine (Proamatine) 10 mg PO TID [facility] Last Admin: 03/21/17 12:24 Dose: 10 mg Sodium Chloride ([place] Nasal [place]) 2 sprays ROSALINA Q4 PRN PRN Reason: Nasal congestion Tramadol HCl (Ultram) 50 mg PO Q12 PRN PRN Reason: Pain scale 4-10 Last Admin: 03/20/17 08:54 Dose: 50 mg - Labs Labs: 03/15/17 06:41 03/15/17 06:41 - Respiratory Exam Respiratory Exam: Clear to Ausculation Bilateral - Cardiovascular Exam Cardiovascular Exam: REGULAR RHYTHM, +S1, +S2 Assessment and Plan - Assessment and Plan (Free Text) Assessment: RECENT CEREBRAL INFARCT BLOOD PRESSURE BETTER OF METOPROLOL AND HEART RATE REMAINS LESS THAN 100 BPM DM PAD GLAUCOMA Plan: CONTINUE CLOPIDOGREL, ATORVASTATIN, INSULIN, PLETAL, PROAMATINE
--- NOTE | 2017-03-21 13:19 | PSY.TMCNF ---
Nursing - Vital Signs Vital Signs (Last 8 hours): Vital Signs 03/21/17 03/21/17 03/21/17 09:00 09:42 09:45 Temperature 97.4 F L Pulse Rate 70 Respiratory 20 Rate Blood Pressure 100/68 93/58 L 100/68 Pain: 0 - Precautions: Precautions: Fall Prevention, Aspiration - Medications/Other Issues Comment: SBP still drops lower than 100, Lopressor on hold - Consults Comment: Dr. Roberts/ Dr. Monk - Toileting Toileting: Moderate Assistance - Bladder Management Bladder Pattern: Normal Voiding Method: Bedpan Bladder Management: Supervision Frequency of Accidents: 0 - Bowel Management Bowel Pattern: Normal Comment: on stool softener Bowel Management: Moderate Assistance Frequency of Accidents: none - Transfers Transfers: Maximal Assistance - ADL's ADL's: Maximal Assistance - Pain Management Comments: denies - Patient/Family Teaching Comments: Care post CVA and safety precautions - Goals/Time Frame Comments: Per multidisciplinary care plan and safety precautions Physical Therapy - Bed Mobility Bed Mobility: Supervision, Verbal Cues - Transfers Wheelchair to Mat: Supervision, Verbal Cues, Contact Guard Sit to Stand: Supervision, Verbal Cues, Contact Guard - Ambulation Level of Assistance: Verbal Cues, Contact Guard Distance (ft.): 50 Assistive Devices: Rolling Walker Orthoses: n/a Comment: -continued to trial various devices to assess most appropriate device for patient to utilize during gait/mobility. -trialed use of RUE platform RW; patient able to ambulate with CG with intermittent min A on level surface. - trialed use of RW; patient unable to marine water tender with R hand onto walker and unable to maintain sustained marine water tender with this technique; pt states at this time she prefers platform. --->due to visual impairments patient's gait distance is limited and she requires a second person with her to provide cues for appropriate negotiation/management of obstacles in environment to reduce fall risk - Stair Negotiation Stairs: Level of Assistance: Not Tested - Standing Balance Static Stand: Supervision Dynamic Stand: Contact Guard Assist, Minimal Assistance - Pain Pain (assessed during therapy session): 4 Management Techniques: Medication, Ice, Position Change Comment: back pain - ice assist to reduce pain - Insight/Carryover Insight/Carryover: Good - Patient/Family Education Comment: -safety, therapy schedule, POC, mobility, stroke recovery, relaxation techniques, transfers, use of call elena for assistance. -dtr with no barriers: extensive discussion completed with the dtr and patient regarding options and modifications that can be made to home environment to improve safety for patient as well as enable patient to function at an intermittent supervision level; also reviewed POC and stroke recovery as well as continued rehab services - Assessment/Plan Assessment: Ms. Arizmendi continues to make good progress in therapy. Patient does better with BUE support from device with mobility and daughter reports that patient has never felt comfort with use of cane prior to this event. Patient has good strength on RLE but requires cues for coordination and awareness with motion. PT continues to recommend skilled therapy to maximize safety and independence with all mobility prior to home discharge to reduce burden of care upon discharge. - Goals Timeframe: 1 week Goals: asc/desc 3 4 inch training steps with single rail and min A. ambulate 50 feet with platform RW with CG. propel manual WC 150 feet with S. sit to/ from with CS. SPT with CS. mod I with all bed/mat mobility - Provider Therapist: Roseann Grove PT, DPT License Number: [id number] Occupational Therapy - Arousal/Attention/Orientation Patient Orientation: Person, Place, Time, Appropriate to Age, Appropriate to Situation - ADL/IADL Self Feeding: Supervision, Set-up Help Grooming: Supervision, Set-up Help Bathing-Upper Extremity: Moderate Assistance Bathing-Lower Extremity: Moderate Assistance Dressing-Upper Extremity: Moderate Assistance Dressing-Lower Extremity: Moderate Assistance - Sitting Balance Static Sitting: Contact Guard Assist Dynamic Sitting: Minimal Assistance - Transfers Wheelchair to Bed Transfers: Minimal Assistance Toilet Transfers: Minimal Assistance - Wheelchair Management Level of Assistance: Minimal Assistance - Upper Extremity Status Right Upper Extremity Comment: ROM WFL, grossly 3/5, impaired gross and fine motor coordination, impaired R Hand sensation Left Upper Extremity Comment: ROM WFL grossly 4/5 - Pain Pain (assessed during therapy session): 4 Alleviating Techniques: Medication, Ice, Position Change Comment: back pain - ice assist to reduce pain - Insight/Carryover Insight/Carryover: Good - Patient/Family Education Comment: -safety, therapy schedule, POC, mobility, stroke recovery, relaxation techniques, transfers, use of call elena for assistance. -dtr with no barriers: extensive discussion completed with the dtr and patient regarding options and modifications that can be made to home environment to improve safety for patient as well as enable patient to function at an intermittent supervision level; also reviewed POC and stroke recovery as well as continued rehab services - Assessment/Plan Assessment: Ms. Arizmendi continues to make good progress in therapy. Patient does better with BUE support from device with mobility and daughter reports that patient has never felt comfort with use of cane prior to this event. Patient has good strength on RLE but requires cues for coordination and awareness with motion. PT continues to recommend skilled therapy to maximize safety and independence with all mobility prior to home discharge to reduce burden of care upon discharge. - Goals Timeframe: 1 week Goals: asc/desc 3 4 inch training steps with single rail and min A. ambulate 50 feet with platform RW with CG. propel manual WC 150 feet with S. sit to/ from with CS. SPT with CS. mod I with all bed/mat mobility - Provider Therapist: Dianelys Parker License Number: [id number] Speech Therapy - Consult Information Patient on Program: Yes Medical Diagnosis: CVA Treatment Diagnosis: 1.) moderate-severe apraxia of speech. 2.) mild-moderate expressive aphasia. 3.) moderate-severe dysarthria. 4.) moderate oral/mild pharyngeal dysphagia - Assessment Expressive Language Impairment: Mild Speech/Articulation Impairment: Severe Dysphagia/Swallowing Impairment: Moderate Comment: finely chopped solids/nectar thick liquids; [place] Protocol - Plan Assessment: Ms. Arizmendi continues to make good progress in therapy. Patient does better with BUE support from device with mobility and daughter reports that patient has never felt comfort with use of cane prior to this event. Patient has good strength on RLE but requires cues for coordination and awareness with motion. PT continues to recommend skilled therapy to maximize safety and independence with all mobility prior to home discharge to reduce burden of care upon discharge. Plan: Continue Dysphagia Therapy, Continue Speech/Language Therapy - Provider Therapist: Luciana Chavis License Number: [id number] Recreational Therapy - Participation Participation: Participates in Individual and/or Group Sessions - Attendance Attendance: 3-5 times per week - Activities Leisure Activities: Cards and Games - Socialization Level of Socialization: Minimal initiation of interaction to request basic needs - Diversional Time Diversional Time: cards, listening to television, music - Assessment Assessment/Plan: Ms. Arizmendi continues to make good progress in therapy. Patient does better with BUE support from device with mobility and daughter reports that patient has never felt comfort with use of cane prior to this event. Patient has good strength on RLE but requires cues for coordination and awareness with motion. PT continues to recommend skilled therapy to maximize safety and independence with all mobility prior to home discharge to reduce burden of care upon discharge. - Provider Therapist: Edna Thomas, [employer] #[id number] Nutrition - Current Diet Current Diet/ Supplement/ Feedings: Mech altered(finely chopped) [place] Thick Liquids. Moderate consistent CHO Heart healthy - Appetite Percent Meal Consumed: 75-100% - Comments Comments: Care post CVA and safety precautions - Assessment/Goals/Time Frame Assessment/Goals/Time Frame: SBP still drops lower than 100, Lopressor on hold - Provider Provider: Lillian Thomas RD Case Management - Psychosocial Assessment Support Systems: Patient lives with daughter who is very supportive and involved in care Psychological Interventions/Needs: Patient is alert and oriented x3 with expressive aphasia. Discharge Concerns: Patient with visual deficits, modified diet and continues with expressive aphasia. Patient/Family Meeting: CM met with patient and rehab team Intervention/Goal/Outcome:: 1. Goal: Intermittent supervision overall. 2. Plan: Home with skilled. 3. DME needs. 4. f/u appts. 5. caregiver training. reteam next week for most appropriate discharge needs and plan. - Discharge Plan Discharge Plan: Home with services - Provider Provider: BAILEE Hernandez, BUSINESS ATTORNEY License Number: [id number] Rehabilitation Plan - Treatment Plan Treatment Plan: Physical Therapy, Occupational Therapy, Speech, Dietary, Patient /Family Education - Discharge Plan Estimated Date of Discharge: 04/01/17 Discharge to: Home
[2017-03-22] MEDS: Insulin Lispro (humaLOG) 100 Units/ml Inj SC SCH ×4 (07:03→21:29)
[2017-03-22] MEDS: Dorzolamide 2% Ophth Soln OD SCH ×3 (08:22→16:51)
[2017-03-22] MEDS: Cilostazol 100 mg Tab UD PO SCH ×2 (08:23→16:49)
[2017-03-22] MEDS: Brimonidine 0.2% 50 DROP/5 ML BOTTLE OD SCH ×3 (08:24→16:49)
[2017-03-22] MEDS: Insulin Detemir 100 Units/ml Inj SC SCH ×2 (08:25→21:26)
--- NOTE | 2017-03-22 11:51 | CP.PCM.PN ---
Subjective - Date & Time of Evaluation Date of Evaluation: 03/21/17 Time of Evaluation: 11:50 - Subjective Subjective: Patient seen in the room actually has a strong hand shake now continued improvements and the goal will be to get her home. family is aware of this plan continue current care Objective - Vital Signs/Intake and Output Vital Signs (last 24 hours): Temp Pulse Resp BP Pulse Ox 98.4 F 112 H 22 120/77 98 03/22/17 07:54 03/22/17 07:54 03/22/17 07:54 03/22/17 07:54 03/22/17 07:54 - Medications Medications: Current Medications Acetaminophen (Tylenol 325mg Tab) 650 mg PO Q6 PRN PRN Reason: Pain, Mild (1-3) Allopurinol (Zyloprim) 300 mg PO HS ON LICENSE OF [facility] Last Admin: 03/21/17 21:32 Dose: 300 mg Atorvastatin Calcium (Lipitor) 80 mg PO [facility] Last Admin: 03/21/17 21:32 Dose: 80 mg Brimonidine Tartrate (Alphagan 0.2% Opht) 1 drop OD TID ON LICENSE OF [facility] Last Admin: 03/22/17 08:24 Dose: 1 drop Calcium Acetate (Phoslo) 1,334 mg PO 0900,1300,1800 ON LICENSE OF [facility] Last Admin: 03/22/17 08:24 Dose: 1,334 mg Cilostazol (Pletal) 100 mg PO BID ON LICENSE OF [facility] Last Admin: 03/22/17 08:23 Dose: 100 mg Clopidogrel Bisulfate (Plavix) 75 mg PO [facility] Last Admin: 03/21/17 21:32 Dose: 75 mg Dextrose (Dextrose 50% Inj) 0 ml IV STAT PRN; Protocol PRN Reason: Hyglycemia Protocol Dextrose (Glutose 15) 0 gm PO ONCE PRN; Protocol PRN Reason: Hypoglycemia Protocol Docusate Sodium (Colace) 100 mg PO DAILY ON [facility] Last Admin: 03/22/17 08:23 Dose: 100 mg Dorzolamide HCl (Trusopt) 1 drop OD TID ON [facility] Last Admin: 03/22/17 08:22 Dose: 1 drop Ferrous Sulfate (Feosol) 325 mg PO DAILY ON [facility] Last Admin: 03/22/17 08:23 Dose: 325 mg Fluticasone Propionate (Flonase) 2 spr ROSALINA DAILY ON [facility] OF [facility] Last Admin: 03/22/17 10:31 Dose: 2 spr Gabapentin (Neurontin) 300 mg PO Q8 ON [facility] Last Admin: 03/22/17 06:05 Dose: 300 mg Glucagon (Glucagen Diagnostic Kit) 0 mg IM STAT PRN; Protocol PRN Reason: Hypoglycemia Protocol Insulin Detemir (Levemir) 12 units SC HS ON [facility] Last Admin: 03/21/17 21:23 Dose: 12 units Insulin Detemir (Levemir) 10 units SC QAM ON [facility] Last Admin: 03/22/17 08:25 Dose: 10 units Insulin Human Lispro (Humalog) 0 units SC ACHS ON LICENSE OF [facility] PRN Reason: Protocol Last Admin: 03/22/17 07:03 Dose: 3 units Midodrine (Proamatine) 10 mg PO TID ON LICENSE OF [facility] Last Admin: 03/22/17 08:23 Dose: 10 mg Sodium Chloride ([place] Nasal [place]) 2 sprays ROSALINA Q4 PRN PRN Reason: Nasal congestion Tramadol HCl (Ultram) 50 mg PO Q12 PRN PRN Reason: Pain scale 4-10 Last Admin: 03/20/17 08:54 Dose: 50 mg - Labs Labs: 03/15/17 06:41 03/15/17 06:41
--- NOTE | 2017-03-22 13:34 | CP.PCM.PN ---
Subjective - Date & Time of Evaluation Date of Evaluation: 03/22/17 Time of Evaluation: 12:00 - Subjective Subjective: no neck or back pain Objective - Vital Signs/Intake and Output Vital Signs (last 24 hours): Temp Pulse Resp BP Pulse Ox 98.4 F 112 H 22 120/77 98 03/22/17 07:54 03/22/17 07:54 03/22/17 07:54 03/22/17 07:54 03/22/17 07:54 - Medications Medications: Current Medications Acetaminophen (Tylenol 325mg Tab) 650 mg PO Q6 PRN PRN Reason: Pain, Mild (1-3) Allopurinol (Zyloprim) 300 mg PO HS [facility] Last Admin: 03/21/17 21:32 Dose: 300 mg Atorvastatin Calcium (Lipitor) 80 mg PO HS [facility] Last Admin: 03/21/17 21:32 Dose: 80 mg Brimonidine Tartrate (Alphagan 0.2% Opht) 1 drop OD TID [facility] Last Admin: 03/22/17 12:17 Dose: 1 drop Calcium Acetate (Phoslo) 1,334 mg PO 0900,1300,1800 [facility] Last Admin: 03/22/17 12:16 Dose: 1,334 mg Cilostazol (Pletal) 100 mg PO BID [facility] Last Admin: 03/22/17 08:23 Dose: 100 mg Clopidogrel Bisulfate (Plavix) 75 mg PO HS [facility] Last Admin: 03/21/17 21:32 Dose: 75 mg Dextrose (Dextrose 50% Inj) 0 ml IV STAT PRN; Protocol PRN Reason: Hyglycemia Protocol Dextrose (Glutose 15) 0 gm PO ONCE PRN; Protocol PRN Reason: Hypoglycemia Protocol Docusate Sodium (Colace) 100 mg PO DAILY [facility] Last Admin: 03/22/17 08:23 Dose: 100 mg Dorzolamide HCl (Trusopt) 1 drop OD TID [facility] Last Admin: 03/22/17 12:19 Dose: 1 drop Ferrous Sulfate (Feosol) 325 mg PO DAILY [facility] Last Admin: 03/22/17 08:23 Dose: 325 mg Fluticasone Propionate (Flonase) 2 spr ROSALINA DAILY [facility] Last Admin: 03/22/17 10:31 Dose: 2 spr Gabapentin (Neurontin) 300 mg PO Q8 [facility] Last Admin: 03/22/17 06:05 Dose: 300 mg Glucagon (Glucagen Diagnostic Kit) 0 mg IM STAT PRN; Protocol PRN Reason: Hypoglycemia Protocol Insulin Detemir (Levemir) 12 units SC HS [facility] Last Admin: 03/21/17 21:23 Dose: 12 units Insulin Detemir (Levemir) 10 units SC QAM [facility] Last Admin: 03/22/17 08:25 Dose: 10 units Insulin Human Lispro (Humalog) 0 units SC ACHS [facility] PRN Reason: Protocol Last Admin: 03/22/17 11:30 Dose: 6 units Midodrine (Proamatine) 10 mg PO TID [facility] Last Admin: 03/22/17 12:16 Dose: 10 mg Sodium Chloride ([place] Nasal [place]) 2 sprays ROSALINA Q4 PRN PRN Reason: Nasal congestion Tramadol HCl (Ultram) 50 mg PO Q12 PRN PRN Reason: Pain scale 4-10 Last Admin: 03/20/17 08:54 Dose: 50 mg - Labs Labs: 03/15/17 06:41 03/15/17 06:41 - Head Exam Head Exam: ATRAUMATIC, NORMAL INSPECTION, NORMOCEPHALIC - Eye Exam Eye Exam: EOMI, Normal appearance, PERRL Pupil Exam: NORMAL ACCOMODATION - ENT Exam ENT Exam: Mucous Membranes Moist, Normal Exam - Neck Exam Neck Exam: Normal Inspection - Respiratory Exam Respiratory Exam: NORMAL BREATHING PATTERN - Cardiovascular Exam Cardiovascular Exam: REGULAR RHYTHM - GI/Abdominal Exam GI & Abdominal Exam: Normal Bowel Sounds - Rectal Exam Rectal Exam: NORMAL INSPECTION - Exam External exam: NORMAL EXTERNAL EXAM - Extremities Exam Extremities Exam: Normal Capillary Refill - Back Exam Back Exam: NORMAL INSPECTION - Neurological Exam Neurological Exam: Alert, Awake Neuro motor strength exam: Left Upper Extremity: 3, Right Upper Extremity: 3, Left Lower Extremity: 3, Right Lower Extremity: 3 - Psychiatric Exam Psychiatric exam: Normal Affect, Normal Mood - Skin Skin Exam: Dry, Intact Assessment and Plan (1) Anemia Status: Acute (2) CKD (chronic kidney disease) stage 3, GFR 30-59 ml/min Status: Acute (3) COPD (chronic obstructive pulmonary disease) Assessment & Plan: Pt and oT therapy covering for Dr roberts Status: Acute (4) CVA (cerebral vascular accident) Status: Acute (5) Contusion of leg Status: Acute (6) Fall Assessment & Plan: physical, occupational therapy therapy covering for Dr Roberts Status: Acute (7) Gout Status: Acute (8) HTN (hypertension) Status: Acute
--- NOTE | 2017-03-22 13:47 | CP.PCM.PN ---
Subjective - Date & Time of Evaluation Date of Evaluation: 03/22/17 Time of Evaluation: 10:00 - Subjective Subjective: NO CHEST PAIN, SOB OR PALPITATIONS FEELS GOOD Objective - Vital Signs/Intake and Output Vital Signs (last 24 hours): Temp Pulse Resp BP Pulse Ox 98.4 F 112 H 22 120/77 98 03/22/17 07:54 03/22/17 07:54 03/22/17 07:54 03/22/17 07:54 03/22/17 07:54 - Medications Medications: Current Medications Acetaminophen (Tylenol 325mg Tab) 650 mg PO Q6 PRN PRN Reason: Pain, Mild (1-3) Allopurinol (Zyloprim) 300 mg PO HS [facility] Last Admin: 03/21/17 21:32 Dose: 300 mg Atorvastatin Calcium (Lipitor) 80 mg PO HS [facility] Last Admin: 03/21/17 21:32 Dose: 80 mg Brimonidine Tartrate (Alphagan 0.2% Opht) 1 drop OD TID [facility] Last Admin: 03/22/17 12:17 Dose: 1 drop Calcium Acetate (Phoslo) 1,334 mg PO 0900,1300,1800 [facility] Last Admin: 03/22/17 12:16 Dose: 1,334 mg Cilostazol (Pletal) 100 mg PO BID [facility] Last Admin: 03/22/17 08:23 Dose: 100 mg Clopidogrel Bisulfate (Plavix) 75 mg PO [facility] Last Admin: 03/21/17 21:32 Dose: 75 mg Dextrose (Dextrose 50% Inj) 0 ml IV STAT PRN; Protocol PRN Reason: Hyglycemia Protocol Dextrose (Glutose 15) 0 gm PO ONCE PRN; Protocol PRN Reason: Hypoglycemia Protocol Docusate Sodium (Colace) 100 mg PO DAILY [facility] Last Admin: 03/22/17 08:23 Dose: 100 mg Dorzolamide HCl (Trusopt) 1 drop OD TID [facility] Last Admin: 03/22/17 12:19 Dose: 1 drop Ferrous Sulfate (Feosol) 325 mg PO DAILY [facility] Last Admin: 03/22/17 08:23 Dose: 325 mg Fluticasone Propionate (Flonase) 2 spr ROSALINA DAILY [facility] Last Admin: 03/22/17 10:31 Dose: 2 spr Gabapentin (Neurontin) 300 mg PO Q8 [facility] Last Admin: 03/22/17 06:05 Dose: 300 mg Glucagon (Glucagen Diagnostic Kit) 0 mg IM STAT PRN; Protocol PRN Reason: Hypoglycemia Protocol Insulin Detemir (Levemir) 12 units SC HS [facility] Last Admin: 03/21/17 21:23 Dose: 12 units Insulin Detemir (Levemir) 10 units SC QAM [facility] Last Admin: 03/22/17 08:25 Dose: 10 units Insulin Human Lispro (Humalog) 0 units SC ACHS [facility] PRN Reason: Protocol Last Admin: 03/22/17 11:30 Dose: 6 units Midodrine (Proamatine) 10 mg PO TID [facility] Last Admin: 03/22/17 12:16 Dose: 10 mg Sodium Chloride ([place] Nasal [place]) 2 sprays ROSALINA Q4 PRN PRN Reason: Nasal congestion Tramadol HCl (Ultram) 50 mg PO Q12 PRN PRN Reason: Pain scale 4-10 Last Admin: 03/20/17 08:54 Dose: 50 mg - Labs Labs: 03/15/17 06:41 03/15/17 06:41 - Respiratory Exam Respiratory Exam: Clear to Ausculation Bilateral - Cardiovascular Exam Cardiovascular Exam: REGULAR RHYTHM, +S1, +S2 Assessment and Plan - Assessment and Plan (Free Text) Assessment: RECENT CEREBRAL INFARCT BLOOD PRESSURE AND HEART RATE ARE STABLE OFF METOPROLOL COPD HYPERLIPIDEMIA DM Plan: CONTINUE CLOPIDOGREL, PROAMATINE, PLETAL, ATORVASTATION CONTUNUE TO OBSERVE BLOOD PRESSURE AND HEART RATE OFF METOPROLOL
--- NOTE | 2017-03-22 14:46 | CP.PCM.PN ---
Subjective - Date & Time of Evaluation Date of Evaluation: 03/22/17 Time of Evaluation: 07:05 - Subjective Subjective: Patient seen and examined at bedside, in no acute distress, verbally responding with 1 word "yes, no, fine, good". Reports had bowel movement yesterday, has normal urine output, good appetite. Tolerating PT well, has no concerns or complaints at this time. Objective - Vital Signs/Intake and Output Vital Signs (last 24 hours): Temp Pulse Resp BP Pulse Ox 98.4 F 112 H 22 120/77 98 03/22/17 07:54 03/22/17 07:54 03/22/17 07:54 03/22/17 07:54 03/22/17 07:54 - Medications Medications: Current Medications Acetaminophen (Tylenol 325mg Tab) 650 mg PO Q6 PRN PRN Reason: Pain, Mild (1-3) Allopurinol (Zyloprim) 300 mg PO [facility] Last Admin: 03/21/17 21:32 Dose: 300 mg Atorvastatin Calcium (Lipitor) 80 mg PO [facility] Last Admin: 03/21/17 21:32 Dose: 80 mg Brimonidine Tartrate (Alphagan 0.2% Opht) 1 drop OD TID [facility] Last Admin: 03/22/17 12:17 Dose: 1 drop Calcium Acetate (Phoslo) 1,334 mg PO 0900,1300,1800 [facility] Last Admin: 03/22/17 12:16 Dose: 1,334 mg Cilostazol (Pletal) 100 mg PO BID [facility] Last Admin: 03/22/17 08:23 Dose: 100 mg Clopidogrel Bisulfate (Plavix) 75 mg PO [facility] Last Admin: 03/21/17 21:32 Dose: 75 mg Dextrose (Dextrose 50% Inj) 0 ml IV STAT PRN; Protocol PRN Reason: Hyglycemia Protocol Dextrose (Glutose 15) 0 gm PO ONCE PRN; Protocol PRN Reason: Hypoglycemia Protocol Docusate Sodium (Colace) 100 mg PO DAILY [facility] Last Admin: 03/22/17 08:23 Dose: 100 mg Dorzolamide HCl (Trusopt) 1 drop OD TID [facility] Last Admin: 03/22/17 12:19 Dose: 1 drop Ferrous Sulfate (Feosol) 325 mg PO DAILY [facility] Last Admin: 03/22/17 08:23 Dose: 325 mg Fluticasone Propionate (Flonase) 2 spr ROSALINA DAILY [facility] Last Admin: 03/22/17 10:31 Dose: 2 spr Gabapentin (Neurontin) 300 mg PO Q8 [facility] Last Admin: 03/22/17 14:11 Dose: 300 mg Glucagon (Glucagen Diagnostic Kit) 0 mg IM STAT PRN; Protocol PRN Reason: Hypoglycemia Protocol Insulin Detemir (Levemir) 12 units SC HS [facility] Last Admin: 03/21/17 21:23 Dose: 12 units Insulin Detemir (Levemir) 10 units SC QAM [facility] Last Admin: 03/22/17 08:25 Dose: 10 units Insulin Human Lispro (Humalog) 0 units SC ACHS [facility] PRN Reason: Protocol Last Admin: 03/22/17 11:30 Dose: 6 units Midodrine (Proamatine) 10 mg PO TID [facility] Last Admin: 03/22/17 12:16 Dose: 10 mg Sodium Chloride ([place] Nasal [place]) 2 sprays ROSALINA Q4 PRN PRN Reason: Nasal congestion Tramadol HCl (Ultram) 50 mg PO Q12 PRN PRN Reason: Pain scale 4-10 Last Admin: 03/20/17 08:54 Dose: 50 mg - Labs Labs: 03/15/17 06:41 03/15/17 06:41 - Constitutional Appears: Well, Non-toxic, No Acute Distress - Head Exam Head Exam: ATRAUMATIC, NORMOCEPHALIC - Eye Exam Eye Exam: EOMI (in right eye; left eye not examined due to blindness), PERRL ( in right eye, left eye hazy over conjunctiva) - ENT Exam ENT Exam: Mucous Membranes Moist - Neck Exam Neck Exam: Full ROM. absent: Lymphadenopathy - Respiratory Exam Respiratory Exam: Clear to Ausculation Bilateral, NORMAL BREATHING PATTERN - Cardiovascular Exam Cardiovascular Exam: REGULAR RHYTHM, +S1, +S2 - GI/Abdominal Exam GI & Abdominal Exam: Soft (obese), Normal Bowel Sounds. absent: Distended, Tenderness - Extremities Exam Extremities Exam: Full ROM (of upper left and bilateral LE, right hand strength 5/5 with improvement in controlled movement). absent: Calf Tenderness, Pedal Edema - Back Exam Back Exam: absent: CVA tenderness (L), CVA tenderness (R) - Neurological Exam Neurological Exam: Alert, Awake, Oriented x3 - Psychiatric Exam Psychiatric exam: Normal Affect, Normal Mood - Skin Skin Exam: Dry, Intact, Warm Assessment and Plan - Assessment and Plan (Free Text) Assessment: 71 yr old F admitted to [facility] s/p 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 Patient has PMHx of CKD stage 3, Anemia, Asthma, COPD, IDDM, HTN, peripheral artery disease (2011 R LE balloon angioplasty, 2012 L LE balloon angioplasty), hypercholesterolemia, glaucoma, L eye blindness, TIA (2002: dizziness, vertigo; 2003: dysarthria). Patient blood pressure and heart rate has remained wnl s/p discontinuation of Metoprolol. Patient is stable, speech improving, verbally answers with 1-2 words and communicates via head gestures and written notes, tolerating PT well. Plan: 1. 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 No acute ICH. (see full report) -continue Plavix 75 PO QHS but no Aspirin or Heparin per neurologist d/t increase bleeding risk -MRI Brain without contrast: Increasing extent of the left parietal lobe diffusion abnormality with increasing edema and localized mass effect, re- demonstration of other chronic infarcts. -PT/OT, speech evaluation appreciated: will follow recommendations 2. IDDM (insulin dependent diabetes mellitus) -uncontrolled, POC glucose today 336 mg/dL at noon -HbA1c 7.8 (03/08/17) -increase Insulin Detemir to 15 units SC AM -increase Insulin Detemir to 15 units SC QHS -Insulin Lispro SC ACHS sliding scale -hypoglycemia protocol -Lipid panel wnl 03/11/17 -Atorvastatin 80mg PO HS -diet: Pureed [place]/ Thick Liquids Moderate Consistent CHO Heart Healthy diet 3. Peripheral arterial disease -history of PVD -s/p 2011 R balloon angioplasty -s/p 2012 L balloon angioplasty -Continue with Cilostazol 100mg PO BID 4. CKD (chronic kidney disease) stage 3, GFR 30-59 ml/min -improved, stable -at baseline -BUN/Cr :30/2.0 with GFR 30 on 03/15/17 -f/u BMP 5. HTN (hypertension) -controlled, BP low this AM 118/71 mmHg -discontinued Metoprolol -Monitor BP 6. COPD (chronic obstructive pulmonary disease) -stable, asymptomatic -CXR: No active pulmonary disease -withhold home meds for now 8. Low back pain -likely arthritic and obesity related -Continue Neurotin 300 mg PO TID -Tylenol 650mg PO Q6 PRN mild pain (1-3) -Tramadol 50mg PO Q12 PRN moderate pain (4-7) 9. Gout -Continue Allopurinol 300mg PO HS 10. DVT Prophylactic -high risk of bleeding no lovenox and no heparin -pt is on Plavix and Cilostazol -SCD's for now
[2017-03-23 07:07] LABS: CALCIUM 9.8 mg/dL (8.4-10.2)
[2017-03-23] MEDS: Insulin Lispro (humaLOG) 100 Units/ml Inj SC SCH ×4 (08:00→21:34)
[2017-03-23] MEDS: Insulin Detemir 100 Units/ml Inj SC SCH ×2 (08:02→21:34)
[2017-03-23] MEDS: Cilostazol 100 mg Tab UD PO SCH ×2 (08:16→16:58)
[2017-03-23] MEDS: Brimonidine 0.2% 50 DROP/5 ML BOTTLE OD SCH ×3 (08:18→16:59)
[2017-03-23] MEDS: Dorzolamide 2% Ophth Soln OD SCH ×3 (08:18→16:59)
--- NOTE | 2017-03-23 12:37 | CP.PCM.PN ---
Subjective - Date & Time of Evaluation Date of Evaluation: 03/23/17 Time of Evaluation: 11:30 - Subjective Subjective: NO CHEST PAIN, SHORTNESS OF BREATH OR PALPITATIONS Objective - Vital Signs/Intake and Output Vital Signs (last 24 hours): Temp Pulse Resp BP Pulse Ox 97.5 F L 110 H 19 144/86 97 03/23/17 08:27 03/23/17 08:27 03/23/17 08:27 03/23/17 08:27 03/23/17 08:27 - Medications Medications: Current Medications Acetaminophen (Tylenol 325mg Tab) 650 mg PO Q6 PRN PRN Reason: Pain, Mild (1-3) Allopurinol (Zyloprim) 300 mg PO HS [facility] Last Admin: 03/22/17 21:28 Dose: 300 mg Atorvastatin Calcium (Lipitor) 80 mg PO HS [facility] Last Admin: 03/22/17 21:28 Dose: 80 mg Brimonidine Tartrate (Alphagan 0.2% Opht) 1 drop OD TID [facility] Last Admin: 03/23/17 12:15 Dose: 1 drop Calcium Acetate (Phoslo) 1,334 mg PO 0900,1300,1800 [facility] Last Admin: 03/23/17 12:15 Dose: 1,334 mg Cilostazol (Pletal) 100 mg PO BID [facility] Last Admin: 03/23/17 08:16 Dose: 100 mg Clopidogrel Bisulfate (Plavix) 75 mg PO HS [facility] Last Admin: 03/22/17 21:28 Dose: 75 mg Dextrose (Dextrose 50% Inj) 0 ml IV STAT PRN; Protocol PRN Reason: Hyglycemia Protocol Dextrose (Glutose 15) 0 gm PO ONCE PRN; Protocol PRN Reason: Hypoglycemia Protocol Docusate Sodium (Colace) 100 mg PO DAILY [facility] Last Admin: 03/23/17 08:16 Dose: 100 mg Dorzolamide HCl (Trusopt) 1 drop OD TID [facility] Last Admin: 03/23/17 12:15 Dose: 1 drop Ferrous Sulfate (Feosol) 325 mg PO DAILY [facility] Last Admin: 03/23/17 08:17 Dose: 325 mg Fluticasone Propionate (Flonase) 2 spr ROSALINA DAILY [facility] Last Admin: 03/23/17 08:17 Dose: 2 spr Gabapentin (Neurontin) 300 mg PO Q8 [facility] Last Admin: 03/23/17 06:08 Dose: 300 mg Glucagon (Glucagen Diagnostic Kit) 0 mg IM STAT PRN; Protocol PRN Reason: Hypoglycemia Protocol Insulin Detemir (Levemir) 15 units SC HS [facility] Last Admin: 03/22/17 21:26 Dose: 15 units Insulin Detemir (Levemir) 15 units SC QAM [facility] Last Admin: 03/23/17 08:02 Dose: 15 u Insulin Human Lispro (Humalog) 0 units SC ACHS [facility] PRN Reason: Protocol Last Admin: 03/23/17 12:12 Dose: 4 units Midodrine (Proamatine) 10 mg PO TID [facility] Last Admin: 03/23/17 12:16 Dose: 10 mg Sodium Chloride ([place] Nasal [place]) 2 sprays ROSALINA Q4 PRN PRN Reason: Nasal congestion Tramadol HCl (Ultram) 50 mg PO Q12 PRN PRN Reason: Pain scale 4-10 Last Admin: 03/20/17 08:54 Dose: 50 mg - Labs Labs: 03/15/17 06:41 03/23/17 05:20 - Respiratory Exam Respiratory Exam: Clear to Ausculation Bilateral - Cardiovascular Exam Cardiovascular Exam: REGULAR RHYTHM, +S1, +S2 Assessment and Plan - Assessment and Plan (Free Text) Assessment: RECENT CEREBRAL INFARCT HYPERLIPIDEMIA DM Plan: CONTINUE CLOPIDOGREL, INSULIN, ATORVASTATIN, PROAMATINE
--- NOTE | 2017-03-23 19:22 | CP.PCM.PN ---
Subjective - Date & Time of Evaluation Date of Evaluation: 03/23/17 Time of Evaluation: 11:00 - Subjective Subjective: patient with no acute neck or back pain, Objective - Vital Signs/Intake and Output Vital Signs (last 24 hours): Temp Pulse Resp BP Pulse Ox 97.5 F L 110 H 19 144/86 98 03/23/17 08:27 03/23/17 08:27 03/23/17 08:27 03/23/17 08:27 03/23/17 13:51 - Medications Medications: Current Medications Acetaminophen (Tylenol 325mg Tab) 650 mg PO Q6 PRN PRN Reason: Pain, Mild (1-3) Allopurinol (Zyloprim) 300 mg PO HS [facility] Last Admin: 03/22/17 21:28 Dose: 300 mg Atorvastatin Calcium (Lipitor) 80 mg PO [facility] Last Admin: 03/22/17 21:28 Dose: 80 mg Brimonidine Tartrate (Alphagan 0.2% Opht) 1 drop OD TID [facility] Last Admin: 03/23/17 16:59 Dose: 1 drop Calcium Acetate (Phoslo) 1,334 mg PO 0900,1300,1800 [facility] Last Admin: 03/23/17 18:00 Dose: 1,334 mg Cilostazol (Pletal) 100 mg PO BID [facility] Last Admin: 03/23/17 16:58 Dose: 100 mg Clopidogrel Bisulfate (Plavix) 75 mg PO [facility] Last Admin: 03/22/17 21:28 Dose: 75 mg Dextrose (Dextrose 50% Inj) 0 ml IV STAT PRN; Protocol PRN Reason: Hyglycemia Protocol Dextrose (Glutose 15) 0 gm PO ONCE PRN; Protocol PRN Reason: Hypoglycemia Protocol Docusate Sodium (Colace) 100 mg PO DAILY [facility] Last Admin: 03/23/17 08:16 Dose: 100 mg Dorzolamide HCl (Trusopt) 1 drop OD TID [facility] Last Admin: 03/23/17 16:59 Dose: 1 drop Ferrous Sulfate (Feosol) 325 mg PO DAILY [facility] Last Admin: 03/23/17 08:17 Dose: 325 mg Fluticasone Propionate (Flonase) 2 spr ROSALINA DAILY [facility] Last Admin: 03/23/17 08:17 Dose: 2 spr Gabapentin (Neurontin) 300 mg PO Q8 [facility] Last Admin: 03/23/17 14:01 Dose: 300 mg Glucagon (Glucagen Diagnostic Kit) 0 mg IM STAT PRN; Protocol PRN Reason: Hypoglycemia Protocol Insulin Detemir (Levemir) 15 units SC HS [facility] Last Admin: 03/22/17 21:26 Dose: 15 units Insulin Detemir (Levemir) 15 units SC QAM [facility] Last Admin: 03/23/17 08:02 Dose: 15 u Insulin Human Lispro (Humalog) 0 units SC ACHS [facility] PRN Reason: Protocol Last Admin: 03/23/17 16:59 Dose: 4 units Midodrine (Proamatine) 10 mg PO TID [facility] Last Admin: 03/23/17 16:58 Dose: 10 mg Sodium Chloride ([place] Nasal [place]) 2 sprays [facility]AL[facility] Q4 PRN PRN Reason: Nasal congestion Tramadol HCl (Ultram) 50 mg PO Q12 PRN PRN Reason: Pain scale 4-10 Last Admin: 03/20/17 08:54 Dose: 50 mg - Labs Labs: 03/15/17 06:41 03/23/17 05:20 - Head Exam Head Exam: ATRAUMATIC, NORMAL INSPECTION, NORMOCEPHALIC - Eye Exam Eye Exam: Normal appearance Pupil Exam: NORMAL ACCOMODATION - ENT Exam ENT Exam: Mucous Membranes Moist, Normal Exam - Neck Exam Neck Exam: Full ROM - Respiratory Exam Respiratory Exam: NORMAL BREATHING PATTERN - Cardiovascular Exam Cardiovascular Exam: REGULAR RHYTHM - GI/Abdominal Exam GI & Abdominal Exam: Normal Bowel Sounds - Rectal Exam Rectal Exam: NORMAL INSPECTION - Exam External exam: NORMAL EXTERNAL EXAM - Extremities Exam Extremities Exam: Normal Capillary Refill, Normal Inspection - Back Exam Back Exam: NORMAL INSPECTION - Neurological Exam Neurological Exam: Alert, Awake Neuro motor strength exam: Left Upper Extremity: 3, Right Upper Extremity: 3, Left Lower Extremity: 3, Right Lower Extremity: 3 - Psychiatric Exam Psychiatric exam: Normal Affect, Normal Mood - Skin Skin Exam: Normal Color Assessment and Plan (1) Anemia Status: Acute (2) CKD (chronic kidney disease) stage 3, GFR 30-59 ml/min Status: Acute (3) COPD (chronic obstructive pulmonary disease) Status: Acute (4) CVA (cerebral vascular accident) Assessment & Plan: plan for physical, occupational, rec therapy continue with Rom, strenghtening, Transfers and gait training. Monitor skin, and BP Covering for Dr Roberts Status: Acute (5) Contusion of leg Status: Acute (6) Fall Status: Acute (7) Gout Status: Acute (8) HTN (hypertension) Status: Acute
[2017-03-24] MEDS: Insulin Lispro (humaLOG) 100 Units/ml Inj SC SCH ×4 (07:20→21:16)
[2017-03-24] MEDS: Brimonidine 0.2% 50 DROP/5 ML BOTTLE OD SCH ×3 (08:47→16:59)
[2017-03-24] MEDS: Insulin Detemir 100 Units/ml Inj SC SCH ×2 (08:55→21:20)
[2017-03-24] MEDS: Cilostazol 100 mg Tab UD PO SCH ×2 (08:58→17:00)
[2017-03-24] MEDS: Dorzolamide 2% Ophth Soln OD SCH ×3 (08:58→17:00)
--- NOTE | 2017-03-24 11:15 | CP.PCM.PN ---
Subjective - Date & Time of Evaluation Date of Evaluation: 03/24/17 Time of Evaluation: 08:00 - Subjective Subjective: Patient seen and examined at bedside, sitting in chair in no acute distress. Patient is tolerating PO diet, having normal urine output, has not had a bowel movement in 2 days. Denies SOB, chest pain, weakness or dizziness. Patient is tolerating PT well. Objective - Vital Signs/Intake and Output Vital Signs (last 24 hours): Temp Pulse Resp BP Pulse Ox 97.5 F L 100 H 20 120/86 98 03/24/17 08:43 03/24/17 08:43 03/24/17 08:43 03/24/17 08:43 03/24/17 08:43 - Medications Medications: Current Medications Acetaminophen (Tylenol 325mg Tab) 650 mg PO Q6 PRN PRN Reason: Pain, Mild (1-3) Allopurinol (Zyloprim) 300 mg PO [facility] Last Admin: 03/23/17 21:33 Dose: 300 mg Atorvastatin Calcium (Lipitor) 80 mg PO [facility] Last Admin: 03/23/17 21:33 Dose: 80 mg Brimonidine Tartrate (Alphagan 0.2% Opht) 1 drop OD TID [facility] Last Admin: 03/24/17 08:47 Dose: 1 drop Calcium Acetate (Phoslo) 1,334 mg PO 0900,1300,1800 [facility] Last Admin: 03/24/17 08:58 Dose: 1,334 mg Cilostazol (Pletal) 100 mg PO BID [facility] Last Admin: 03/24/17 08:58 Dose: 100 mg Clopidogrel Bisulfate (Plavix) 75 mg PO [facility] Last Admin: 03/23/17 21:33 Dose: 75 mg Dextrose (Dextrose 50% Inj) 0 ml IV STAT PRN; Protocol PRN Reason: Hyglycemia Protocol Dextrose (Glutose 15) 0 gm PO ONCE PRN; Protocol PRN Reason: Hypoglycemia Protocol Docusate Sodium (Colace) 100 mg PO DAILY [facility] Last Admin: 03/24/17 08:47 Dose: 100 mg Dorzolamide HCl (Trusopt) 1 drop OD TID [facility] Last Admin: 03/24/17 08:58 Dose: 1 drop Ferrous Sulfate (Feosol) 325 mg PO DAILY [facility] Last Admin: 03/24/17 08:54 Dose: 325 mg Fluticasone Propionate (Flonase) 2 spr ROSALINA DAILY [facility] Last Admin: 03/24/17 08:54 Dose: 2 spr Gabapentin (Neurontin) 300 mg PO Q8 [facility] Last Admin: 03/24/17 06:14 Dose: 300 mg Glucagon (Glucagen Diagnostic Kit) 0 mg IM STAT PRN; Protocol PRN Reason: Hypoglycemia Protocol Insulin Detemir (Levemir) 15 units SC HS [facility] Last Admin: 03/23/17 21:34 Dose: 15 units Insulin Detemir (Levemir) 15 units SC QAM [facility] Last Admin: 03/24/17 08:55 Dose: 15 u Insulin Human Lispro (Humalog) 0 units SC ACHS [facility] PRN Reason: Protocol Last Admin: 03/24/17 07:20 Dose: 2 units Midodrine (Proamatine) 10 mg PO TID [facility] Last Admin: 03/24/17 10:00 Dose: 10 mg Sodium Chloride ([place] Nasal [place]) 2 sprays ROSALINA Q4 PRN PRN Reason: Nasal congestion Tramadol HCl (Ultram) 50 mg PO Q12 PRN PRN Reason: Pain scale 4-10 Last Admin: 03/20/17 08:54 Dose: 50 mg - Labs Labs: 03/15/17 06:41 03/23/17 05:20 - Constitutional Appears: Well, Non-toxic, No Acute Distress - Head Exam Head Exam: ATRAUMATIC, NORMOCEPHALIC - Eye Exam Eye Exam: EOMI (in right eye; left eye not examined due to blindness), PERRL ( in right eye, left eye hazy over conjunctiva) - ENT Exam ENT Exam: Mucous Membranes Moist - Neck Exam Neck Exam: Full ROM. absent: Lymphadenopathy - Respiratory Exam Respiratory Exam: Clear to Ausculation Bilateral, NORMAL BREATHING PATTERN - Cardiovascular Exam Cardiovascular Exam: REGULAR RHYTHM, +S1, +S2 - GI/Abdominal Exam GI & Abdominal Exam: Soft (obese). 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 Patient has PMHx of CKD stage 3, Anemia, Asthma, COPD, IDDM, HTN, peripheral artery disease (2011 R LE balloon angioplasty, 2012 L LE balloon angioplasty), hypercholesterolemia, glaucoma, L eye blindness, TIA (2003: dizziness, vertigo; 2003: dysarthria). Patient blood pressure and heart rate has remained wnl s/p discontinuation of Metoprolol. Patient is stable, speech and strength improving, verbally answers with 1-2 words, is tolerating PT well. Plan: 1. 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 No acute ICH. (see full report) -continue Plavix 75 PO QHS but no Aspirin or Heparin per neurologist d/t increase bleeding risk -MRI Brain without contrast: Increasing extent of the left parietal lobe diffusion abnormality with increasing edema and localized mass effect, re- demonstration of other chronic infarcts. -PT/OT, speech evaluation appreciated: will follow recommendations 2. IDDM (insulin dependent diabetes mellitus) -uncontrolled, POC glucose today 196 mg/dL at noon -HbA1c 7.8 (03/08/17) -increase Insulin Detemir to 17 units SC AM -Insulin Detemir to 15 units SC QHS -Insulin Lispro SC ACHS sliding scale -hypoglycemia protocol -Lipid panel wnl 03/11/17 -Atorvastatin 80mg PO HS -diet: Pureed [place]/ Thick Liquids Moderate Consistent CHO Heart Healthy diet 3. Peripheral arterial disease -history of PVD -s/p 2011 R balloon angioplasty -s/p 2012 L balloon angioplasty -Continue with Cilostazol 100mg PO BID 4. CKD (chronic kidney disease) stage 3, GFR 30-59 ml/min -improved, stable -at baseline -BUN/Cr :26/1.9 with GFR 26 on 03/15/17 5. HTN (hypertension) -controlled, BP 120/86 mmHg this AM -discontinued Metoprolol -Monitor BP 6. COPD (chronic obstructive pulmonary disease) -stable, asymptomatic -CXR: No active pulmonary disease -withhold home meds for now 8. Low back pain -likely arthritic and obesity related -Continue Neurontin 300 mg PO TID -Tylenol 650mg PO Q6 PRN mild pain (1-3) -Tramadol 50mg PO Q12 PRN moderate pain (4-7) 9. Gout -Continue Allopurinol 300mg PO HS 10. DVT Prophylactic -high risk of bleeding no lovenox and no heparin -pt is on Plavix and Cilostazol -SCD's for now
--- NOTE | 2017-03-24 11:29 | CP.PCM.PN ---
Subjective - Date & Time of Evaluation Date of Evaluation: 03/24/17 Time of Evaluation: 11:00 - Subjective Subjective: NO COMPLAINTS Objective - Vital Signs/Intake and Output Vital Signs (last 24 hours): Temp Pulse Resp BP Pulse Ox 97.5 F L 100 H 20 120/86 98 03/24/17 08:43 03/24/17 08:43 03/24/17 08:43 03/24/17 08:43 03/24/17 08:43 - Medications Medications: Current Medications Acetaminophen (Tylenol 325mg Tab) 650 mg PO Q6 PRN PRN Reason: Pain, Mild (1-3) Allopurinol (Zyloprim) 300 mg PO HS [facility] Last Admin: 03/23/17 21:33 Dose: 300 mg Atorvastatin Calcium (Lipitor) 80 mg PO HS [facility] Last Admin: 03/23/17 21:33 Dose: 80 mg Brimonidine Tartrate ([place]ph[place] 0.2% Opht) 1 drop OD TID [facility] Last Admin: 03/24/17 08:47 Dose: 1 drop Calcium Acetate (Phoslo) 1,334 mg PO 0900,1300,1800 [facility] Last Admin: 03/24/17 08:58 Dose: 1,334 mg Cilostazol (Pletal) 100 mg PO BID [facility] Last Admin: 03/24/17 08:58 Dose: 100 mg Clopidogrel Bisulfate (Plavix) 75 mg PO HS [facility] Last Admin: 03/23/17 21:33 Dose: 75 mg Dextrose (Dextrose 50% Inj) 0 ml IV STAT PRN; Protocol PRN Reason: Hyglycemia Protocol Dextrose (Glutose 15) 0 gm PO ONCE PRN; Protocol PRN Reason: Hypoglycemia Protocol Docusate Sodium (Colace) 100 mg PO DAILY [facility] Last Admin: 03/24/17 08:47 Dose: 100 mg Dorzolamide HCl (Trusopt) 1 drop OD TID [facility] Last Admin: 03/24/17 08:58 Dose: 1 drop Ferrous Sulfate (Feosol) 325 mg PO DAILY [facility] Last Admin: 03/24/17 08:54 Dose: 325 mg Fluticasone Propionate (Flonase) 2 spr ROSALINA DAILY [facility] Last Admin: 03/24/17 08:54 Dose: 2 spr Gabapentin (Neurontin) 300 mg PO Q8 [facility] Last Admin: 03/24/17 06:14 Dose: 300 mg Glucagon (Glucagen Diagnostic Kit) 0 mg IM STAT PRN; Protocol PRN Reason: Hypoglycemia Protocol Insulin Detemir (Levemir) 15 units SC HS [facility] Last Admin: 03/23/17 21:34 Dose: 15 units Insulin Detemir (Levemir) 15 units SC QAM [facility] Last Admin: 03/24/17 08:55 Dose: 15 u Insulin Human Lispro (Humalog) 0 units SC ACHS [facility] PRN Reason: Protocol Last Admin: 03/24/17 07:20 Dose: 2 units Midodrine (Proamatine) 10 mg PO TID [facility] Last Admin: 03/24/17 10:00 Dose: 10 mg Sodium Chloride ([place] Nasal [place]) 2 sprays [facility] Q4 PRN PRN Reason: Nasal congestion Tramadol HCl (Ultram) 50 mg PO Q12 PRN PRN Reason: Pain scale 4-10 Last Admin: 03/20/17 08:54 Dose: 50 mg - Labs Labs: 03/15/17 06:41 03/23/17 05:20 - Respiratory Exam Respiratory Exam: Clear to Ausculation Bilateral - Cardiovascular Exam Cardiovascular Exam: REGULAR RHYTHM, +S1, +S2 Assessment and Plan - Assessment and Plan (Free Text) Assessment: RECENT CEREBRAL INFARCT DM HYPERLIPIDEMIA PAD Plan: CONTINUE ATORVASTATIN, INSULIN, CLOPIDOGREL, PROAMATINE, PLETAL
--- NOTE | 2017-03-24 13:26 | CP.PCM.PN ---
Subjective - Date & Time of Evaluation Date of Evaluation: 03/24/17 Time of Evaluation: 10:00 - Subjective Subjective: no acute complaints Objective - Vital Signs/Intake and Output Vital Signs (last 24 hours): Temp Pulse Resp BP Pulse Ox 97.5 F L 100 H 20 120/86 98 03/24/17 08:43 03/24/17 08:43 03/24/17 08:43 03/24/17 08:43 03/24/17 08:43 - Medications Medications: Current Medications Acetaminophen (Tylenol 325mg Tab) 650 mg PO Q6 PRN PRN Reason: Pain, Mild (1-3) Allopurinol (Zyloprim) 300 mg PO HS [facility] Last Admin: 03/23/17 21:33 Dose: 300 mg Atorvastatin Calcium (Lipitor) 80 mg PO HS [facility] Last Admin: 03/23/17 21:33 Dose: 80 mg Brimonidine Tartrate (Alphagan 0.2% Opht) 1 drop OD TID [facility] Last Admin: 03/24/17 12:17 Dose: 1 drop Calcium Acetate (Phoslo) 1,334 mg PO 0900,1300,1800 [facility] Last Admin: 03/24/17 12:19 Dose: 1,334 mg Cilostazol (Pletal) 100 mg PO BID [facility] Last Admin: 03/24/17 08:58 Dose: 100 mg Clopidogrel Bisulfate (Plavix) 75 mg PO HS [facility] Last Admin: 03/23/17 21:33 Dose: 75 mg Dextrose (Dextrose 50% Inj) 0 ml IV STAT PRN; Protocol PRN Reason: Hyglycemia Protocol Dextrose (Glutose 15) 0 gm PO ONCE PRN; Protocol PRN Reason: Hypoglycemia Protocol Docusate Sodium (Colace) 100 mg PO DAILY [facility] Last Admin: 03/24/17 08:47 Dose: 100 mg Dorzolamide HCl (Trusopt) 1 drop OD TID [facility] Last Admin: 03/24/17 12:21 Dose: 1 drop Ferrous Sulfate (Feosol) 325 mg PO DAILY [facility] Last Admin: 03/24/17 08:54 Dose: 325 mg Fluticasone Propionate (Flonase) 2 spr ROSALINA DAILY [facility] Last Admin: 03/24/17 08:54 Dose: 2 spr Gabapentin (Neurontin) 300 mg PO Q8 [facility] Last Admin: 03/24/17 06:14 Dose: 300 mg Glucagon (Glucagen Diagnostic Kit) 0 mg IM STAT PRN; Protocol PRN Reason: Hypoglycemia Protocol Insulin Detemir (Levemir) 15 units SC HS [facility] Last Admin: 03/23/17 21:34 Dose: 15 units Insulin Detemir (Levemir) 17 units SC QAM [facility] Insulin Human Lispro (Humalog) 0 units SC ACHS [facility] PRN Reason: Protocol Last Admin: 03/24/17 11:30 Dose: 2 units Midodrine (Proamatine) 10 mg PO TID [facility] Last Admin: 03/24/17 12:20 Dose: 10 mg Sodium Chloride ([place] Nasal [place]) 2 sprays ROSALINA Q4 PRN PRN Reason: Nasal congestion Tramadol HCl (Ultram) 50 mg PO Q12 PRN PRN Reason: Pain scale 4-10 Last Admin: 03/20/17 08:54 Dose: 50 mg - Labs Labs: 03/15/17 06:41 03/23/17 05:20 - Head Exam Head Exam: ATRAUMATIC, NORMAL INSPECTION, NORMOCEPHALIC - Eye Exam Eye Exam: EOMI, Normal appearance, PERRL Pupil Exam: NORMAL ACCOMODATION - ENT Exam ENT Exam: Mucous Membranes Moist, Normal Exam - Respiratory Exam Respiratory Exam: NORMAL BREATHING PATTERN - Cardiovascular Exam Cardiovascular Exam: REGULAR RHYTHM - GI/Abdominal Exam GI & Abdominal Exam: Normal Bowel Sounds - Rectal Exam Rectal Exam: Black Stool - Exam External exam: NORMAL EXTERNAL EXAM - Extremities Exam Extremities Exam: Normal Capillary Refill - Back Exam Back Exam: NORMAL INSPECTION - Neurological Exam Neurological Exam: Alert, Awake Neuro motor strength exam: Left Upper Extremity: 3, Right Upper Extremity: 3, Left Lower Extremity: 3, Right Lower Extremity: 3 - Psychiatric Exam Psychiatric exam: Normal Affect, Normal Mood - Skin Skin Exam: Dry, Intact Assessment and Plan (1) Anemia Status: Acute (2) CKD (chronic kidney disease) stage 3, GFR 30-59 ml/min Status: Acute (3) COPD (chronic obstructive pulmonary disease) Status: Acute (4) CVA (cerebral vascular accident) Assessment & Plan: plan for Pt and ot Dc for 04/01 Status: Acute (5) Contusion of leg Status: Acute (6) Fall Status: Acute (7) Gout Status: Acute (8) HTN (hypertension) Status: Acute
[2017-03-24] MEDS ORDERED: POLYETHYLENE GLYCOL 3350 17 GM/Dose PACKET PO ONE (19:00)
[2017-03-25] MEDS: Insulin Lispro (humaLOG) 100 Units/ml Inj SC SCH ×4 (07:18→21:20)
[2017-03-25] MEDS: Dorzolamide 2% Ophth Soln OD SCH ×3 (08:38→17:05)
[2017-03-25] MEDS: Brimonidine 0.2% 50 DROP/5 ML BOTTLE OD SCH ×3 (08:38→17:05)
[2017-03-25] MEDS: Cilostazol 100 mg Tab UD PO SCH ×2 (08:39→17:04)
[2017-03-25] MEDS: Insulin Detemir 100 Units/ml Inj SC SCH ×2 (08:39→21:20)
--- NOTE | 2017-03-25 13:55 | CP.PCM.PN ---
Subjective - Date & Time of Evaluation Date of Evaluation: 03/25/17 Time of Evaluation: 10:00 - Subjective Subjective: NO CHEST PAIN, SOB OR PALPITATIONS Objective - Vital Signs/Intake and Output Vital Signs (last 24 hours): Temp Pulse Resp BP Pulse Ox 97.5 F L 118 H 20 111/74 95 03/25/17 08:11 03/25/17 08:11 03/25/17 08:11 03/25/17 08:11 03/25/17 08:11 - Medications Medications: Current Medications Acetaminophen (Tylenol 325mg Tab) 650 mg PO Q6 PRN PRN Reason: Pain, Mild (1-3) Allopurinol (Zyloprim) 300 mg PO HS [facility] Last Admin: 03/24/17 21:15 Dose: 300 mg Atorvastatin Calcium (Lipitor) 80 mg PO HS [facility] Last Admin: 03/24/17 21:15 Dose: 80 mg Brimonidine Tartrate (Alphagan 0.2% Opht) 1 drop OD TID [facility] Last Admin: 03/25/17 13:06 Dose: 1 drop Calcium Acetate (Phoslo) 1,334 mg PO 0900,1300,1800 [facility] Last Admin: 03/25/17 13:05 Dose: 1,334 mg Cilostazol (Pletal) 100 mg PO BID [facility] Last Admin: 03/25/17 08:39 Dose: 100 mg Clopidogrel Bisulfate (Plavix) 75 mg PO [facility] Last Admin: 03/24/17 21:16 Dose: 75 mg Dextrose (Dextrose 50% Inj) 0 ml IV STAT PRN; Protocol PRN Reason: Hyglycemia Protocol Dextrose (Glutose 15) 0 gm PO ONCE PRN; Protocol PRN Reason: Hypoglycemia Protocol Docusate Sodium (Colace) 100 mg PO DAILY [facility] Last Admin: 03/25/17 08:38 Dose: 100 mg Dorzolamide HCl (Trusopt) 1 drop OD TID [facility] Last Admin: 03/25/17 13:05 Dose: 1 drop Ferrous Sulfate (Feosol) 325 mg PO DAILY [facility] Last Admin: 03/25/17 08:40 Dose: 325 mg Fluticasone Propionate (Flonase) 2 spr ROSALINA DAILY [facility] Last Admin: 03/25/17 08:40 Dose: 2 spr Gabapentin (Neurontin) 300 mg PO Q8 [facility] Last Admin: 06/17/17 13:05 Dose: 300 mg Glucagon (Glucagen Diagnostic Kit) 0 mg IM STAT PRN; Protocol PRN Reason: Hypoglycemia Protocol Insulin Detemir (Levemir) 15 units SC HS [facility] Last Admin: 03/24/17 21:20 Dose: 15 units Insulin Detemir (Levemir) 17 units SC QAM [facility] Last Admin: 03/25/17 08:39 Dose: 17 unit Insulin Human Lispro (Humalog) 0 units SC ACHS [facility] PRN Reason: Protocol Last Admin: 03/25/17 11:52 Dose: 3 units Midodrine (Proamatine) 10 mg PO TID [facility] Last Admin: 03/25/17 13:05 Dose: 10 mg Sodium Chloride ([place] Nasal [place]) 2 sprays ROSALINA Q4 PRN PRN Reason: Nasal congestion Tramadol HCl (Ultram) 50 mg PO Q12 PRN PRN Reason: Pain scale 4-10 Last Admin: 03/20/17 08:54 Dose: 50 mg - Labs Labs: 03/15/17 06:41 03/23/17 05:20 - Respiratory Exam Respiratory Exam: Clear to Ausculation Bilateral - Cardiovascular Exam Cardiovascular Exam: Tachycardia, REGULAR RHYTHM, +S1, +S2 Assessment and Plan - Assessment and Plan (Free Text) Assessment: RECENT CEREBRAL INFARCT COPD SINUS TACHYCARDIA FROM BETA CB WITHDRAWAL AND COPD DM Plan: CONTINUE ATORVASTATIN, INSULIN, CLOPIDOGREL AND PROAMATINE AYSMPTOMATIC SINUS TACHYCARDIA AT RATE OF 118 BEATS PER MINUTE IS OK AND MORE IMPORTANTLY THE BLOOD PRESSURE IS STABLE OF THE BETA CB-WILL CONTINUE TO OBSERVE BP AND HEART RATE
[2017-03-26] MEDS: Insulin Lispro (humaLOG) 100 Units/ml Inj SC SCH ×4 (07:23→21:15)
[2017-03-26] MEDS: Insulin Detemir 100 Units/ml Inj SC SCH ×2 (08:00→21:31)
[2017-03-26] MEDS: Dorzolamide 2% Ophth Soln OD SCH ×3 (09:18→16:53)
[2017-03-26] MEDS: Brimonidine 0.2% 50 DROP/5 ML BOTTLE OD SCH ×3 (09:18→16:51)
[2017-03-26] MEDS: Cilostazol 100 mg Tab UD PO SCH ×2 (09:27→16:52)
--- NOTE | 2017-03-26 12:05 | CP.PCM.PN ---
Subjective - Date & Time of Evaluation Date of Evaluation: 03/26/17 Time of Evaluation: 10:00 - Subjective Subjective: NO CHEST PAIN, SOB OR PALPITATIONS Objective - Vital Signs/Intake and Output Vital Signs (last 24 hours): Temp Pulse Resp BP Pulse Ox 97.7 F 118 H 18 111/68 98 03/26/17 10:00 03/26/17 10:00 03/26/17 10:00 03/26/17 10:00 03/26/17 10:00 - Medications Medications: Current Medications Acetaminophen (Tylenol 325mg Tab) 650 mg PO Q6 PRN PRN Reason: Pain, Mild (1-3) Allopurinol (Zyloprim) 300 mg PO HS [facility] Last Admin: 03/25/17 21:06 Dose: 300 mg Atorvastatin Calcium (Lipitor) 80 mg PO [facility] Last Admin: 03/25/17 21:06 Dose: 80 mg Brimonidine Tartrate (Alphagan 0.2% Opht) 1 drop OD TID [facility] Last Admin: 03/26/17 09:18 Dose: 1 drop Calcium Acetate (Phoslo) 1,334 mg PO 0900,1300,1800 [facility] Last Admin: 03/26/17 09:16 Dose: 1,334 mg Cilostazol (Pletal) 100 mg PO BID [facility] Last Admin: 03/26/17 09:27 Dose: 100 mg Clopidogrel Bisulfate (Plavix) 75 mg PO [facility] Last Admin: 03/25/17 21:06 Dose: 75 mg Dextrose (Dextrose 50% Inj) 0 ml IV STAT PRN; Protocol PRN Reason: Hyglycemia Protocol Dextrose (Glutose 15) 0 gm PO ONCE PRN; Protocol PRN Reason: Hypoglycemia Protocol Docusate Sodium (Colace) 100 mg PO DAILY [facility] Last Admin: 03/26/17 09:17 Dose: 100 mg Dorzolamide HCl (Trusopt) 1 drop OD TID [facility] Last Admin: 03/26/17 09:18 Dose: 1 drop Ferrous Sulfate (Feosol) 325 mg PO DAILY [facility] Last Admin: 03/26/17 09:18 Dose: 325 mg Fluticasone Propionate (Flonase) 2 spr ROSALINA DAILY [facility] Last Admin: 03/26/17 09:17 Dose: 2 spr Gabapentin (Neurontin) 300 mg PO Q8 [facility] Last Admin: 03/26/17 06:18 Dose: 300 mg Glucagon (Glucagen Diagnostic Kit) 0 mg IM STAT PRN; Protocol PRN Reason: Hypoglycemia Protocol Insulin Detemir (Levemir) 15 units SC HS [facility] Last Admin: 03/25/17 21:20 Dose: 15 units Insulin Detemir (Levemir) 17 units SC QAM [facility] Last Admin: 03/26/17 08:00 Dose: 17 unit Insulin Human Lispro (Humalog) 0 units SC ACHS [facility] PRN Reason: Protocol Last Admin: 03/26/17 07:23 Dose: 3 units Midodrine (Proamatine) 10 mg PO TID [facility] Last Admin: 03/26/17 09:16 Dose: 10 mg Sodium Chloride ([place] Nasal [place]) 2 sprays ROSALINA Q4 PRN PRN Reason: Nasal congestion Tramadol HCl (Ultram) 50 mg PO Q12 PRN PRN Reason: Pain scale 4-10 Last Admin: 03/20/17 08:54 Dose: 50 mg - Labs Labs: 03/15/17 06:41 03/23/17 05:20 - Respiratory Exam Respiratory Exam: Clear to Ausculation Bilateral - Cardiovascular Exam Cardiovascular Exam: REGULAR RHYTHM, +S1, +S2 - Extremities Exam Extremities Exam: Normal Inspection - Additional Findings Additional findings: VITAL SIGNS SHOW HEART RATES FROM 106 TO 118 BPM BP IS STABLE Assessment and Plan - Assessment and Plan (Free Text) Assessment: RECENT CEREBRAL INFARCT HYPERLIPIDEMIA HYPOTENSION WITH BETA BLOCKERS DM Plan: CONTINUE CLOPIDOGREL, ATORVASTATIN,, PROAMATINE AND INSULIN
[2017-03-27] MEDS: Insulin Lispro (humaLOG) 100 Units/ml Inj SC SCH ×4 (07:10→21:08)
[2017-03-27] MEDS: Cilostazol 100 mg Tab UD PO SCH ×2 (08:38→16:55)
[2017-03-27] MEDS: Brimonidine 0.2% 50 DROP/5 ML BOTTLE OD SCH ×3 (08:40→16:55)
[2017-03-27] MEDS: Dorzolamide 2% Ophth Soln OD SCH ×3 (08:40→16:55)
[2017-03-27] MEDS: Insulin Detemir 100 Units/ml Inj SC SCH ×2 (08:43→21:07)
[2017-03-27] MEDS: [UNRECOGNIZED DRUG - OTHER] OD PRN (08:53)
--- NOTE | 2017-03-27 10:57 | CP.PCM.PN ---
Subjective - Date & Time of Evaluation Date of Evaluation: 03/27/17 Time of Evaluation: 08:45 - Subjective Subjective: Patient seen and examined at bedside, no acute events overnight. Tolerating PT well. Denies palpitations, SOB, weakness or dizziness. Has good appetite, normal urine output. No concerns or complaints at this time. Objective - Vital Signs/Intake and Output Vital Signs (last 24 hours): Temp Pulse Resp BP Pulse Ox 97.3 F L 120 H 20 102/60 98 03/27/17 08:26 03/27/17 08:26 03/27/17 08:26 03/27/17 08:26 03/27/17 08:26 - Medications Medications: Current Medications Acetaminophen (Tylenol 325mg Tab) 650 mg PO Q6 PRN PRN Reason: Pain, Mild (1-3) Allopurinol (Zyloprim) 300 mg PO HS [facility] Last Admin: 03/26/17 21:21 Dose: 300 mg Atorvastatin Calcium (Lipitor) 80 mg PO [facility] Last Admin: 03/26/17 21:21 Dose: 80 mg Brimonidine Tartrate (Alphagan 0.2% Opht) 1 drop OD TID [facility] Last Admin: 03/27/17 08:40 Dose: 1 drop Calcium Acetate (Phoslo) 1,334 mg PO 0900,1300,1800 [facility] Last Admin: 03/27/17 08:38 Dose: 1,334 mg Cilostazol (Pletal) 100 mg PO BID [facility] Last Admin: 03/27/17 08:38 Dose: 100 mg Clopidogrel Bisulfate (Plavix) 75 mg PO [facility] Last Admin: 03/26/17 21:21 Dose: 75 mg Dextrose (Dextrose 50% Inj) 0 ml IV STAT PRN; Protocol PRN Reason: Hyglycemia Protocol Dextrose (Glutose 15) 0 gm PO ONCE PRN; Protocol PRN Reason: Hypoglycemia Protocol Docusate Sodium (Colace) 100 mg PO DAILY [facility] Last Admin: 03/27/17 08:39 Dose: 100 mg Dorzolamide HCl (Trusopt) 1 drop OD TID [facility] Last Admin: 03/27/17 08:40 Dose: 1 drop Ferrous Sulfate (Feosol) 325 mg PO DAILY [facility] Last Admin: 03/27/17 08:41 Dose: 325 mg Fluticasone Propionate (Flonase) 2 spr ROSALINA DAILY [facility] Last Admin: 03/27/17 08:40 Dose: 2 spr Gabapentin (Neurontin) 300 mg PO Q8 [facility] Last Admin: 03/27/17 06:10 Dose: 300 mg Glucagon (Glucagen Diagnostic Kit) 0 mg IM STAT PRN; Protocol PRN Reason: Hypoglycemia Protocol Home Med (Non Formulary Medication) 1 drop OD Q8 PRN PRN Reason: Dry eyes Last Admin: 03/27/17 08:53 Dose: 1 drop Insulin Detemir (Levemir) 15 units SC HS [facility] Last Admin: 03/26/17 21:31 Dose: 15 units Insulin Detemir (Levemir) 17 units SC QAM [facility] Last Admin: 03/27/17 08:43 Dose: 17 unit Insulin Human Lispro (Humalog) 0 units SC ACHS [facility] PRN Reason: Protocol Last Admin: 03/27/17 07:10 Dose: 3 units Midodrine (Proamatine) 10 mg PO TID [facility] Last Admin: 03/27/17 08:39 Dose: 10 mg Sodium Chloride ([place] Nasal [place]) 2 sprays ROSALINA Q4 PRN PRN Reason: Nasal congestion Tramadol HCl (Ultram) 50 mg PO Q12 PRN PRN Reason: Pain scale 4-10 Last Admin: 03/27/17 08:37 Dose: 50 mg - Labs Labs: 03/15/17 06:41 03/23/17 05:20 - Constitutional Appears: Well, Non-toxic, No Acute Distress - Head Exam Head Exam: ATRAUMATIC, NORMOCEPHALIC - Eye Exam Eye Exam: EOMI (in right eye; left eye not examined due to blindness), PERRL ( in right eye, left eye hazy over conjunctiva) - ENT Exam ENT Exam: Mucous Membranes Moist - Neck Exam Neck Exam: Full ROM. absent: Lymphadenopathy - Respiratory Exam Respiratory Exam: Clear to Ausculation Bilateral, NORMAL BREATHING PATTERN - Cardiovascular Exam Cardiovascular Exam: REGULAR RHYTHM, +S1, +S2 - GI/Abdominal Exam GI & Abdominal Exam: Soft (obese), Normal Bowel Sounds. 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 Patient has PMHx of CKD stage 3, Anemia, Asthma, COPD, IDDM, HTN, peripheral artery disease (2011 R LE balloon angioplasty, 2012 L LE balloon angioplasty), hypercholesterolemia, glaucoma, L eye blindness, TIA (2002: dizziness, vertigo; 2003: dysarthria). Patient blood pressure wnl, is tolerating PT well with asymptomatic tachycardia. Plan: 1. Asymptomatic Tachycardia -likely secondary to intermittent mild hypoxia secondary to COPD -pt with normal BP, Metoprolol was discontinued due to hypotension -per discussion with cardiology Dr. Monk, will observe pulse for now, do not start Metoprolol 2. 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 No acute ICH. (see full report) -continue Plavix 75 PO QHS but no Aspirin or Heparin per neurologist d/t increase bleeding risk -MRI Brain without contrast: Increasing extent of the left parietal lobe diffusion abnormality with increasing edema and localized mass effect, re- demonstration of other chronic infarcts. -PT/OT, speech evaluation appreciated: will follow recommendations 3. IDDM (insulin dependent diabetes mellitus) -uncontrolled, POC glucose today 196 mg/dL at noon -HbA1c 7.8 (03/08/17) -increase Insulin Detemir to 17 units SC AM -Insulin Detemir to 15 units SC QHS -Insulin Lispro SC ACHS sliding scale -hypoglycemia protocol -Lipid panel wnl 03/11/17 -Atorvastatin 80mg PO HS -diet: Pureed Verlot/ Thick Liquids Moderate Consistent CHO Heart Healthy diet 4. Peripheral arterial disease -history of PVD -s/p 2011 R balloon angioplasty -s/p 2012 L balloon angioplasty -Continue with Cilostazol 100mg PO BID 5. CKD (chronic kidney disease) stage 3, GFR 30-59 ml/min -improved, stable -at baseline -BUN/Cr :26/1.9 with GFR 26 on 03/15/17 6. HTN (hypertension) -controlled, BP 120/86 mmHg this AM -discontinued Metoprolol -Monitor BP 7. COPD (chronic obstructive pulmonary disease) -stable, asymptomatic -CXR: No active pulmonary disease -withhold home meds for now 8. Low back pain -likely arthritic and obesity related -Continue Neurontin 300 mg PO TID -Tylenol 650mg PO Q6 PRN mild pain (1-3) -Tramadol 50mg PO Q12 PRN moderate pain (4-7) 9. Gout -Continue Allopurinol 300mg PO HS 10. DVT Prophylactic -high risk of bleeding no lovenox and no heparin -pt is on Plavix and Cilostazol -SCD's for now
--- NOTE | 2017-03-27 13:06 | CP.PCM.PN ---
Subjective - Date & Time of Evaluation Date of Evaluation: 03/27/17 Time of Evaluation: 10:15 - Subjective Subjective: NO CHEST PAIN OR SOB DENIES PALPITATIONS Objective - Vital Signs/Intake and Output Vital Signs (last 24 hours): Temp Pulse Resp BP Pulse Ox 97.3 F L 120 H 20 102/60 98 03/27/17 08:26 03/27/17 08:26 03/27/17 08:26 03/27/17 08:26 03/27/17 08:26 - Medications Medications: Current Medications Acetaminophen (Tylenol 325mg Tab) 650 mg PO Q6 PRN PRN Reason: Pain, Mild (1-3) Allopurinol (Zyloprim) 300 mg PO HS [facility] Last Admin: 03/26/17 21:21 Dose: 300 mg Atorvastatin Calcium (Lipitor) 80 mg PO [facility] Last Admin: 03/26/17 21:21 Dose: 80 mg Brimonidine Tartrate (Alphagan 0.2% Opht) 1 drop OD TID [facility] Last Admin: 03/27/17 08:40 Dose: 1 drop Calcium Acetate (Phoslo) 1,334 mg PO 0900,1300,1800 [facility] Last Admin: 03/27/17 08:38 Dose: 1,334 mg Cilostazol (Pletal) 100 mg PO BID [facility] Last Admin: 03/27/17 08:38 Dose: 100 mg Clopidogrel Bisulfate (Plavix) 75 mg PO [facility] Last Admin: 03/26/17 21:21 Dose: 75 mg Dextrose (Dextrose 50% Inj) 0 ml IV STAT PRN; Protocol PRN Reason: Hyglycemia Protocol Dextrose (Glutose 15) 0 gm PO ONCE PRN; Protocol PRN Reason: Hypoglycemia Protocol Docusate Sodium (Colace) 100 mg PO DAILY [facility] Last Admin: 03/27/17 08:39 Dose: 100 mg Dorzolamide HCl (Trusopt) 1 drop OD TID [facility] Last Admin: 03/27/17 08:40 Dose: 1 drop Ferrous Sulfate (Feosol) 325 mg PO DAILY [facility] Last Admin: 03/27/17 08:41 Dose: 325 mg Fluticasone Propionate (Flonase) 2 spr ROSALINA DAILY [facility] Last Admin: 03/27/17 08:40 Dose: 2 spr Gabapentin (Neurontin) 300 mg PO Q8 [facility] Last Admin: 03/27/17 06:10 Dose: 300 mg Glucagon (Glucagen Diagnostic Kit) 0 mg IM STAT PRN; Protocol PRN Reason: Hypoglycemia Protocol Home Med (Non Formulary Medication) 1 drop OD Q8 PRN PRN Reason: Dry eyes Last Admin: 03/27/17 08:53 Dose: 1 drop Insulin Detemir (Levemir) 15 units SC HS [facility] Last Admin: 03/26/17 21:31 Dose: 15 units Insulin Detemir (Levemir) 17 units SC QAM [facility] Last Admin: 03/27/17 08:43 Dose: 17 unit Insulin Human Lispro (Humalog) 0 units SC ACHS [facility] PRN Reason: Protocol Last Admin: 03/27/17 12:08 Dose: 4 units Midodrine (Proamatine) 10 mg PO TID [facility] Last Admin: 03/27/17 08:39 Dose: 10 mg Sodium Chloride ([place] Nasal [place]) 2 sprays ROSALINA Q4 PRN PRN Reason: Nasal congestion Tramadol HCl (Ultram) 50 mg PO Q12 PRN PRN Reason: Pain scale 4-10 Last Admin: 03/27/17 08:37 Dose: 50 mg - Labs Labs: 03/15/17 06:41 03/23/17 05:20 - Respiratory Exam Respiratory Exam: Clear to Ausculation Bilateral - Cardiovascular Exam Cardiovascular Exam: REGULAR RHYTHM, +S1, +S2 - Additional Findings Additional findings: CHART REVIEW SHOWS PULSE FROM 74 TO 101 BPM Assessment and Plan - Assessment and Plan (Free Text) Assessment: RECENT CEREBRAL INFARCT HYPERLIPIDEMIA DM STABLE CARDIAC CONDITION Plan: CONTINUE ATORVASTATIN AND CLOPIDOGREL
[2017-03-28] MEDS: Insulin Lispro (humaLOG) 100 Units/ml Inj SC SCH ×4 (06:43→21:29)
[2017-03-28] MEDS: Brimonidine 0.2% 50 DROP/5 ML BOTTLE OD SCH ×3 (08:26→17:07)
[2017-03-28] MEDS: Cilostazol 100 mg Tab UD PO SCH ×2 (08:27→17:10)
[2017-03-28] MEDS: Dorzolamide 2% Ophth Soln OD SCH ×3 (08:28→17:11)
[2017-03-28] MEDS: Insulin Detemir 100 Units/ml Inj SC SCH ×2 (08:31→21:29)
--- NOTE | 2017-03-28 09:57 | CP.PCM.PN ---
Subjective - Date & Time of Evaluation Date of Evaluation: 03/28/17 Time of Evaluation: 09:30 - Subjective Subjective: NO COMPLAINTS Objective - Vital Signs/Intake and Output Vital Signs (last 24 hours): Temp Pulse Resp BP Pulse Ox 97.1 F L 89 20 148/70 98 03/28/17 09:04 03/28/17 09:04 03/28/17 09:04 03/28/17 09:04 03/28/17 09:04 - Medications Medications: Current Medications Acetaminophen (Tylenol 325mg Tab) 650 mg PO Q6 PRN PRN Reason: Pain, Mild (1-3) Allopurinol (Zyloprim) 300 mg PO HS [facility] Last Admin: 03/27/17 21:07 Dose: 300 mg Atorvastatin Calcium (Lipitor) 80 mg PO [facility] Last Admin: 03/27/17 21:07 Dose: 80 mg Brimonidine Tartrate (Alphagan 0.2% Opht) 1 drop OD TID [facility] Last Admin: 03/28/17 08:26 Dose: 1 drop Calcium Acetate (Phoslo) 1,334 mg PO 0900,1300,1800 [facility] Last Admin: 03/28/17 08:27 Dose: 1,334 mg Cilostazol (Pletal) 100 mg PO BID [facility] Last Admin: 03/28/17 08:27 Dose: 100 mg Clopidogrel Bisulfate (Plavix) 75 mg PO [facility] Last Admin: 03/27/17 21:07 Dose: 75 mg Dextrose (Dextrose 50% Inj) 0 ml IV STAT PRN; Protocol PRN Reason: Hyglycemia Protocol Dextrose (Glutose 15) 0 gm PO ONCE PRN; Protocol PRN Reason: Hypoglycemia Protocol Docusate Sodium (Colace) 100 mg PO DAILY [facility] Last Admin: 03/28/17 08:25 Dose: 100 mg Dorzolamide HCl (Trusopt) 1 drop OD TID [facility] Last Admin: 03/28/17 08:28 Dose: 1 drop Ferrous Sulfate (Feosol) 325 mg PO DAILY [facility] Last Admin: 03/28/17 08:26 Dose: 325 mg Fluticasone Propionate (Flonase) 2 spr ROSALINA DAILY [facility] Last Admin: 03/28/17 08:29 Dose: 2 spr Gabapentin (Neurontin) 300 mg PO Q8 [facility] Last Admin: 03/28/17 06:43 Dose: 300 mg Glucagon (Glucagen Diagnostic Kit) 0 mg IM STAT PRN; Protocol PRN Reason: Hypoglycemia Protocol Home Med (Non Formulary Medication) 1 drop OD Q8 PRN PRN Reason: Dry eyes Last Admin: 03/27/17 08:53 Dose: 1 drop Insulin Detemir (Levemir) 15 units SC HS [facility] Last Admin: 03/27/17 21:07 Dose: 15 units Insulin Detemir (Levemir) 17 units SC QAM [facility] Last Admin: 03/28/17 08:31 Dose: 17 unit Insulin Human Lispro (Humalog) 0 units SC ACHS [facility] PRN Reason: Protocol Last Admin: 03/28/17 06:43 Dose: 2 units Midodrine (Proamatine) 10 mg PO TID [facility] Last Admin: 03/28/17 08:28 Dose: 10 mg Sodium Chloride ([place] Nasal [place]) 2 sprays [place]ALINA Q4 PRN PRN Reason: Nasal congestion Last Admin: 03/28/17 08:26 Dose: 2 sprays Tramadol HCl (Ultram) 50 mg PO Q12 PRN PRN Reason: Pain scale 4-10 Last Admin: 03/27/17 08:37 Dose: 50 mg - Labs Labs: 03/15/17 06:41 03/23/17 05:20 - Respiratory Exam Respiratory Exam: Clear to Ausculation Bilateral - Cardiovascular Exam Cardiovascular Exam: REGULAR RHYTHM, +S1, +S2 - Additional Findings Additional findings: HEART RATE VARIES FROM 89 TO 109 Assessment and Plan - Assessment and Plan (Free Text) Assessment: RECENT CEREBRAL INFARCT COPD Plan: CONTINUE ATORVASTATIN AND CLOPIDOGREL
--- NOTE | 2017-03-28 13:12 | PSY.TMCNF ---
Nursing - Vital Signs Vital Signs (Last 8 hours): Vital Signs 03/28/17 03/28/17 09:00 09:04 Temperature 97.5 F L 97.1 F L Pulse Rate 109 H 89 Respiratory 20 20 Rate Blood Pressure 137/94 H 148/70 O2 Sat by Pulse 98 Oximetry Pain: 0 - Precautions: Precautions: Fall Prevention, Aspiration - Medications/Other Issues Comment: Pt at moderate nutritional risk. goals: 1. Pt to consume 75-100% of meals(met, continue). 2. Blood glucoses to be between 70-180 mg/dl(partially met, continue). Follow-up due 03/31/2017 - Consults Comment: Dr. Roberts/ Dr. Monk - Toileting Toileting: Moderate Assistance - Bladder Management Bladder Pattern: Normal Voiding Method: Bedpan Frequency of Accidents: 0 - Bowel Management Bowel Pattern: Normal Comment: on stool softener Bowel Management: Moderate Assistance Frequency of Accidents: none - Transfers Transfers: Maximal Assistance - ADL's ADL's: Maximal Assistance - Pain Management Comments: denies - Patient/Family Teaching Comments: Care post CVA and safety precautions - Goals/Time Frame Comments: Per multidisciplinary care plan and safety precautions Physical Therapy - Bed Mobility Bed Mobility: Supervision, Verbal Cues - Transfers Wheelchair to Mat: Supervision, Verbal Cues Sit to Stand: Supervision, Verbal Cues - Ambulation Level of Assistance: Supervision, Verbal Cues Distance (ft.): 50 Assistive Devices: Rolling Walker Orthoses: RUE platform attachment to RW Comment: 50 feet x 4 reps with standing rest breaks as needed. -level surface, CS for turning for safety. -RUE platform walker. -improved fluidity and ability to place RUE on platform. *trialed walker without forearm crutch, patient unable to maintain grasp on the walker --> RUE proprioception limitations at the wrist/forearm primarily limit mobility due to patient's impaired ability to sustain grasp to utilize walker - Stair Negotiation Stairs: Level of Assistance: Minimal Assistance, Moderate Assistance Comment: -negotiated 3 steps with mod A; not a practical goal for patient as patient has impaired vision and this leads to a lot of fear with stair negotiation. -pt states she hasn't negotiated steps in many years - Standing Balance Static Stand: Supervision Dynamic Stand: Contact Guard Assist - Pain Pain (assessed during therapy session): 0 Management Techniques: Medication Comment: Chronic knee pain. intermittent low back pain - Insight/Carryover Insight/Carryover: Good - Patient/Family Education Comment: -family training completed with daughter on Saturday 03/24 and reviewed all information. -safety, POC, therapy schedule, goals, recommended DME, discharge plan, home modification strategies, continued therapy, recommended supervision level - Assessment/Plan Assessment: Ms. Arizmendi continues to make excellent progress in therapy. Patient is able to perform mobility with reduced assistance and reduced cueing leading to improve independence in anticipation for home discharge. Patient's daughter has been educated and has been attending therapy sessions to facilitate safe home discharge. Patient continues with decreased sensation in BLE and impaired proprioception in the RUE which impairs her ability to utilize a standard RW. PT recommends continued skilled therapies with emphasis on safety and independence with all mobility at a wheelchair level for safe completion of functional IADLs when in her home set-up. PT recommends home discharge with home services and intermittent supervision of daughter. - Goals Timeframe: 1 week Goals: asc/desc 3 4 inch training steps with single rail and min A. ambulate 100 feet with platform RW with CS. propel manual WC 200 feet with mod I on all surfaces. sit to/from stand with mod I. SPT with mod I. Mod I with all bed/ mat mobility - Provider License Number: [id number] Occupational Therapy - Arousal/Attention/Orientation Patient Orientation: Person, Place, Time, Appropriate to Age, Appropriate to Situation - ADL/IADL Self Feeding: Verbal Cues, Set-up Help Grooming: Supervision, Verbal Cues, Set-up Help Bathing-Upper Extremity: Supervision, Verbal Cues, Set-up Help Bathing-Lower Extremity: Minimal Assistance Dressing-Upper Extremity: Minimal Assistance Dressing-Lower Extremity: Minimal Assistance - Sitting Balance Static Sitting: Independent with upper extremity support Dynamic Sitting: Requires supervision - Transfers Wheelchair to Bed Transfers: Verbal Cues, Set-up Help, Contact Guard Toilet Transfers: Verbal Cues, Set-up Help, Contact Guard - Wheelchair Management Level of Assistance: Minimal Assistance - Upper Extremity Status Right Upper Extremity Comment: ROM WFL, grossly 3+/5, impaired gross and fine motor coordination, impaired RUE sensation Left Upper Extremity Comment: ROM WFL grossly 4+/5 - Pain Pain (assessed during therapy session): 0 Alleviating Techniques: Medication Comment: Chronic knee pain. intermittent low back pain - Insight/Carryover Insight/Carryover: Good - Patient/Family Education Comment: -family training completed with daughter on Saturday 03/24 and reviewed all information. -safety, POC, therapy schedule, goals, recommended DME, discharge plan, home modification strategies, continued therapy, recommended supervision level - Assessment/Plan Assessment: Ms. Arizmendi continues to make excellent progress in therapy. Patient is able to perform mobility with reduced assistance and reduced cueing leading to improve independence in anticipation for home discharge. Patient's daughter has been educated and has been attending therapy sessions to facilitate safe home discharge. Patient continues with decreased sensation in BLE and impaired proprioception in the RUE which impairs her ability to utilize a standard RW. PT recommends continued skilled therapies with emphasis on safety and independence with all mobility at a wheelchair level for safe completion of functional IADLs when in her home set-up. PT recommends home discharge with home services and intermittent supervision of daughter. - Goals Timeframe: 1 week Goals: asc/desc 3 4 inch training steps with single rail and min A. ambulate 100 feet with platform RW with CS. propel manual WC 200 feet with mod I on all surfaces. sit to/from stand with mod I. SPT with mod I. Mod I with all bed/ mat mobility - Provider Therapist: Dianelys Parker Speech Therapy - Consult Information Patient on Program: Yes Medical Diagnosis: CVA Treatment Diagnosis: 1.) moderate apraxia of speech. 2.) mild expressive aphasia. 3.) moderate-severe dysarthria. 4.) mild-moderate oral/mild pharyngeal dysphagia - Assessment Expressive Language Impairment: Mild Speech/Articulation Impairment: Severe Comment: moderate-severe Dysphagia/Swallowing Impairment: Mild Comment: mild-moderate; diet advanced to finely chopped solids/thin liquids - Plan Assessment: Ms. Arizmendi continues to make excellent progress in therapy. Patient is able to perform mobility with reduced assistance and reduced cueing leading to improve independence in anticipation for home discharge. Patient's daughter has been educated and has been attending therapy sessions to facilitate safe home discharge. Patient continues with decreased sensation in BLE and impaired proprioception in the RUE which impairs her ability to utilize a standard RW. PT recommends continued skilled therapies with emphasis on safety and independence with all mobility at a wheelchair level for safe completion of functional IADLs when in her home set-up. PT recommends home discharge with home services and intermittent supervision of daughter. - Provider Therapist: Luciana Chavis License Number: [id number] Recreational Therapy - Participation Participation: Participates in Individual and/or Group Sessions - Attendance Attendance: 3-5 times per week - Activities Leisure Activities: Cards and Games - Socialization Level of Socialization: Initiates/interacts with caregivers but not with peer, Requires 1:1 guidance to respond - Diversional Time Diversional Time: cards, listening to television, music - Assessment Assessment/Plan: Ms. Arizmendi continues to make excellent progress in therapy. Patient is able to perform mobility with reduced assistance and reduced cueing leading to improve independence in anticipation for home discharge. Patient's daughter has been educated and has been attending therapy sessions to facilitate safe home discharge. Patient continues with decreased sensation in BLE and impaired proprioception in the RUE which impairs her ability to utilize a standard RW. PT recommends continued skilled therapies with emphasis on safety and independence with all mobility at a wheelchair level for safe completion of functional IADLs when in her home set-up. PT recommends home discharge with home services and intermittent supervision of daughter. - Provider Therapist: Edna Thomas, MALE IMPERSONATOR #[id number] Nutrition - Current Diet Current Diet/ Supplement/ Feedings: Moderate consistent CHO heart healthy mech altered(finely chopped) thin liquids - Appetite Percent Meal Consumed: 75-100% - Comments Comments: Care post CVA and safety precautions - Assessment/Goals/Time Frame Assessment/Goals/Time Frame: Pt at moderate nutritional risk. goals: 1. Pt to consume 75-100% of meals(met, continue). 2. Blood glucoses to be between 70- 180 mg/dl(partially met, continue). Follow-up due 03/31/2017 - Provider Provider: Lillian Thomas RD Case Management - Psychosocial Assessment Support Systems: Patient lives with daughter who is very supportive and involved in care Psychological Interventions/Needs: Patient is alert and oriented x3 with expressive aphasia. Discharge Concerns: Patient with visual deficits, modified diet and continues with expressive aphasia. Patient/Family Meeting: CM met with patient and rehab team Intervention/Goal/Outcome:: 1. Goal: Intermittent supervision overall. 2. Plan: Home with skilled. 3. DME needs. 4. f/u appts. 5. caregiver training scheduled for 03/24. reteam next week for most appropriate discharge needs and plan. - Discharge Plan Discharge Plan: Home with services - Provider Provider: BAILEE Hernandez, [employer] License Number: [id number] Rehabilitation Plan - Treatment Plan Treatment Plan: Physical Therapy, Occupational Therapy, Speech, Dietary, Patient /Family Education - Discharge Plan Estimated Date of Discharge: 04/01/17 Discharge to: Home
--- NOTE | 2017-03-28 13:47 | CP.PCM.PN ---
Subjective - Date & Time of Evaluation Date of Evaluation: 03/28/17 Time of Evaluation: 13:46 - Subjective Subjective: Patient seen in room much improved right UE strength continue with current care set for d/c home with family 04/01/17 Objective - Vital Signs/Intake and Output Vital Signs (last 24 hours): Temp Pulse Resp BP Pulse Ox 97.1 F L 89 20 148/70 98 03/28/17 09:04 03/28/17 09:04 03/28/17 09:04 03/28/17 09:04 03/28/17 09:04 - Medications Medications: Current Medications Acetaminophen (Tylenol 325mg Tab) 650 mg PO Q6 PRN PRN Reason: Pain, Mild (1-3) Allopurinol (Zyloprim) 300 mg PO HS [facility] Last Admin: 03/27/17 21:07 Dose: 300 mg Atorvastatin Calcium (Lipitor) 80 mg PO HS [facility] Last Admin: 03/27/17 21:07 Dose: 80 mg Brimonidine Tartrate (Alphagan 0.2% Opht) 1 drop OD TID [facility] Last Admin: 03/28/17 12:13 Dose: 1 drop Calcium Acetate (Phoslo) 1,334 mg PO 0900,1300,1800 [facility] Last Admin: 03/28/17 12:12 Dose: 1,334 mg Cilostazol (Pletal) 100 mg PO BID [facility] Last Admin: 03/28/17 08:27 Dose: 100 mg Clopidogrel Bisulfate (Plavix) 75 mg PO HS [facility] Last Admin: 03/27/17 21:07 Dose: 75 mg Dextrose (Dextrose 50% Inj) 0 ml IV STAT PRN; Protocol PRN Reason: Hyglycemia Protocol Dextrose (Glutose 15) 0 gm PO ONCE PRN; Protocol PRN Reason: Hypoglycemia Protocol Docusate Sodium (Colace) 100 mg PO DAILY [facility] Last Admin: 03/28/17 08:25 Dose: 100 mg Dorzolamide HCl (Trusopt) 1 drop OD TID [facility] Last Admin: 03/28/17 12:13 Dose: 1 drop Ferrous Sulfate (Feosol) 325 mg PO DAILY [facility] Last Admin: 03/28/17 08:26 Dose: 325 mg Fluticasone Propionate (Flonase) 2 spr ROSALINA DAILY [facility] Last Admin: 03/28/17 08:29 Dose: 2 spr Gabapentin (Neurontin) 300 mg PO Q8 [facility] Last Admin: 03/28/17 13:02 Dose: 300 mg Glucagon (Glucagen Diagnostic Kit) 0 mg IM STAT PRN; Protocol PRN Reason: Hypoglycemia Protocol Home Med (Non Formulary Medication) 1 drop OD Q8 PRN PRN Reason: Dry eyes Last Admin: 03/27/17 08:53 Dose: 1 drop Insulin Detemir (Levemir) 15 units SC HS [facility] Last Admin: 03/27/17 21:07 Dose: 15 units Insulin Detemir (Levemir) 17 units SC QAM [facility] Last Admin: 03/28/17 08:31 Dose: 17 unit Insulin Human Lispro (Humalog) 0 units SC ACHS [facility] PRN Reason: Protocol Last Admin: 03/28/17 12:10 Dose: 3 units Midodrine (Proamatine) 10 mg PO TID [facility] Last Admin: 03/28/17 12:13 Dose: 10 mg Sodium Chloride ([place] Nasal [place]) 2 sprays ROSALINA Q4 PRN PRN Reason: Nasal congestion Last Admin: 03/28/17 08:26 Dose: 2 sprays Tramadol HCl (Ultram) 50 mg PO Q12 PRN PRN Reason: Pain scale 4-10 Last Admin: 03/27/17 08:37 Dose: 50 mg - Labs Labs: 03/15/17 06:41 03/23/17 05:20
[2017-03-29] MEDS: Insulin Lispro (humaLOG) 100 Units/ml Inj SC SCH ×5 (07:59→21:31)
[2017-03-29] MEDS: Insulin Detemir 100 Units/ml Inj SC SCH ×2 (08:39→21:30)
[2017-03-29] MEDS: Cilostazol 100 mg Tab UD PO SCH ×2 (08:41→16:40)
[2017-03-29] MEDS: Dorzolamide 2% Ophth Soln OD SCH ×3 (08:42→16:41)
[2017-03-29] MEDS: Brimonidine 0.2% 50 DROP/5 ML BOTTLE OD SCH ×3 (08:42→16:50)
--- NOTE | 2017-03-29 09:24 | CP.PCM.PN ---
Subjective - Date & Time of Evaluation Date of Evaluation: 03/29/17 Time of Evaluation: 07:50 - Subjective Subjective: Patient seen and examined at bedside in no acute distress. No acute events overnight. Reports cough and runny nose since her shower last night. Patient sitting in bed eating breakfast, denies chest pain/weakness/dizziness or palpitations. Nurse at bedside reported low blood pressure systolic 90's/ diastolic 40's, patient is asymptomatic. Patient has no other concerns or complaints at this time. Objective - Vital Signs/Intake and Output Vital Signs (last 24 hours): Temp Pulse Resp BP Pulse Ox 97.4 F L 89 20 137/77 95 03/28/17 19:58 03/28/17 19:58 03/28/17 19:58 03/28/17 19:58 03/28/17 19:58 - Medications Medications: Current Medications Acetaminophen (Tylenol 325mg Tab) 650 mg PO Q6 PRN PRN Reason: Pain, Mild (1-3) Allopurinol (Zyloprim) 300 mg PO [facility] Last Admin: 03/28/17 21:29 Dose: 300 mg Atorvastatin Calcium (Lipitor) 80 mg PO [facility] Last Admin: 03/28/17 21:29 Dose: 80 mg Brimonidine Tartrate (Alphagan 0.2% Opht) 1 drop OD TID [facility] Last Admin: 03/29/17 08:42 Dose: 1 drop Calcium Acetate (Phoslo) 1,334 mg PO 0900,1300,1800 [facility] Last Admin: 03/29/17 08:40 Dose: 1,334 mg Cilostazol (Pletal) 100 mg PO BID [facility] Last Admin: 03/29/17 08:41 Dose: 100 mg Clopidogrel Bisulfate (Plavix) 75 mg PO [facility] Last Admin: 03/28/17 21:29 Dose: 75 mg Dextrose (Dextrose 50% Inj) 0 ml IV STAT PRN; Protocol PRN Reason: Hyglycemia Protocol Dextrose (Glutose 15) 0 gm PO ONCE PRN; Protocol PRN Reason: Hypoglycemia Protocol Docusate Sodium (Colace) 100 mg PO DAILY [facility] Last Admin: 03/29/17 08:41 Dose: 100 mg Dorzolamide HCl (Trusopt) 1 drop OD TID [facility] Last Admin: 03/29/17 08:42 Dose: 1 drop Ferrous Sulfate (Feosol) 325 mg PO DAILY [facility] Last Admin: 03/29/17 08:41 Dose: 325 mg Fluticasone Propionate (Flonase) 2 spr ROSALINA DAILY [facility] Last Admin: 03/29/17 08:42 Dose: 2 spr Gabapentin (Neurontin) 300 mg PO Q8 [facility] Last Admin: 03/29/17 06:38 Dose: 300 mg Glucagon (Glucagen Diagnostic Kit) 0 mg IM STAT PRN; Protocol PRN Reason: Hypoglycemia Protocol Home Med (Non Formulary Medication) 1 drop OD Q8 PRN PRN Reason: Dry eyes Last Admin: 03/27/17 08:53 Dose: 1 drop Insulin Detemir (Levemir) 15 units SC HS [facility] Last Admin: 03/28/17 21:29 Dose: 15 units Insulin Detemir (Levemir) 17 units SC QAM [facility] Last Admin: 03/29/17 08:39 Dose: 17 unit Insulin Human Lispro (Humalog) 0 units SC ACHS [facility] PRN Reason: Protocol Last Admin: 03/29/17 07:59 Dose: 2 units Midodrine (Proamatine) 10 mg PO TID [facility] Last Admin: 03/29/17 08:41 Dose: 10 mg Sodium Chloride ([place] Nasal [place]) 2 sprays [place] Q4 PRN PRN Reason: Nasal congestion Last Admin: 03/28/17 08:26 Dose: 2 sprays Tramadol HCl (Ultram) 50 mg PO Q12 PRN PRN Reason: Pain scale 4-10 Last Admin: 03/27/17 08:37 Dose: 50 mg - Labs Labs: 03/15/17 06:41 03/23/17 05:20 - Constitutional Appears: Well, No Acute Distress - Head Exam Head Exam: ATRAUMATIC, NORMOCEPHALIC - Eye Exam Eye Exam: EOMI (in right eye; left eye not examined due to blindness), PERRL ( in right eye, left eye hazy over conjunctiva) - ENT Exam ENT Exam: Mucous Membranes Moist - Neck Exam Neck Exam: Full ROM. absent: Lymphadenopathy - Respiratory Exam Respiratory Exam: Clear to Ausculation Bilateral, NORMAL BREATHING PATTERN - Cardiovascular Exam Cardiovascular Exam: REGULAR RHYTHM, +S1, +S2 - GI/Abdominal Exam GI & Abdominal Exam: Soft (obese), Normal Bowel Sounds. 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 Patient has PMHx of CKD stage 3, Anemia, Asthma, COPD, IDDM, HTN, peripheral artery disease (2011 R LE balloon angioplasty, 2012 L LE balloon angioplasty), hypercholesterolemia, glaucoma, L eye blindness, TIA (2002: dizziness, vertigo; 2003: dysarthria). Patient with asymptomatic low blood pressure this AM, rhinorrhea and intermittent mild cough. Otherwise stable. Plan: 1. Rhinorrhea and intermittent cough -likely mild URI, pt has normal O2 saturation on room air, lungs sounds are clear bilaterally -Tessalon perles 100mg PO TID PRN cough -reassess patients symptoms 2. Asymptomatic Tachycardia -stable, likely secondary to intermittent mild hypoxia secondary to COPD -bp low this AM, Metoprolol was discontinued due to hypotension -per discussion with cardiology Dr. Monk, will observe pulse for now, do not start Metoprolol 3. 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 No acute ICH. (see full report) -continue Plavix 75 PO QHS but no Aspirin or Heparin per neurologist d/t increase bleeding risk -MRI Brain without contrast: Increasing extent of the left parietal lobe diffusion abnormality with increasing edema and localized mass effect, re- demonstration of other chronic infarcts. -PT/OT, speech evaluation appreciated: will follow recommendations 4. IDDM (insulin dependent diabetes mellitus) -uncontrolled, POC glucose today 175 mg/dL this AM -HbA1c 7.8 (03/08/17) -increase Insulin Detemir to 17 units SC AM -Insulin Detemir to 15 units SC QHS -Insulin Lispro 2 units TIDAC -Insulin Lispro SC ACHS sliding scale -hypoglycemia protocol -Lipid panel wnl 03/11/17 -Atorvastatin 80mg PO HS -diet: Pureed [place]/ Thick Liquids Moderate Consistent CHO Heart Healthy diet 5. Peripheral arterial disease -history of PVD -s/p 2011 R balloon angioplasty -s/p 2012 L balloon angioplasty -Continue with Cilostazol 100mg PO BID 6. CKD (chronic kidney disease) stage 3, GFR 30-59 ml/min -improved, stable -at baseline -BUN/Cr :26/1.9 with GFR 26 on 03/15/17 7. HTN (hypertension) -controlled, pt asymptomatically hypotensive this AM -discontinued Metoprolol -Monitor BP 8. COPD (chronic obstructive pulmonary disease) -stable, asymptomatic -CXR: No active pulmonary disease -withhold home meds for now 9. Low back pain -likely arthritic and obesity related -Continue Neurontin 300 mg PO TID -Tylenol 650mg PO Q6 PRN mild pain (1-3) -Tramadol 50mg PO Q12 PRN moderate pain (4-7) 10. Gout -Continue Allopurinol 300mg PO HS 11. DVT Prophylactic -high risk of bleeding no lovenox and no heparin -pt is on Plavix and Cilostazol -SCD's for now
--- NOTE | 2017-03-29 12:31 | CP.PCM.PN ---
Subjective - Date & Time of Evaluation Date of Evaluation: 03/29/17 Time of Evaluation: 08:00 - Subjective Subjective: NO COMPLAINTS Objective - Vital Signs/Intake and Output Vital Signs (last 24 hours): Temp Pulse Resp BP Pulse Ox 96.8 F L 123 H 19 94/47 L 97 03/29/17 10:00 03/29/17 10:00 03/29/17 10:00 03/29/17 10:00 03/29/17 10:00 - Medications Medications: Current Medications Acetaminophen (Tylenol 325mg Tab) 650 mg PO Q6 PRN PRN Reason: Pain, Mild (1-3) Last Admin: 03/29/17 10:03 Dose: 650 mg Allopurinol (Zyloprim) 300 mg PO [facility] Last Admin: 03/28/17 21:29 Dose: 300 mg Atorvastatin Calcium (Lipitor) 80 mg PO [facility] Last Admin: 03/28/17 21:29 Dose: 80 mg Benzonatate (Tessalon Perles) 100 mg PO TID PRN PRN Reason: Cough Brimonidine Tartrate (Alphagan 0.2% Opht) 1 drop OD TID [facility] Last Admin: 03/29/17 08:42 Dose: 1 drop Calcium Acetate (Phoslo) 1,334 mg PO 0900,1300,1800 [facility] Last Admin: 03/29/17 08:40 Dose: 1,334 mg Cilostazol (Pletal) 100 mg PO BID [facility] Last Admin: 03/29/17 08:41 Dose: 100 mg Clopidogrel Bisulfate (Plavix) 75 mg PO [facility] Last Admin: 03/28/17 21:29 Dose: 75 mg Dextrose (Dextrose 50% Inj) 0 ml IV STAT PRN; Protocol PRN Reason: Hyglycemia Protocol Dextrose (Glutose 15) 0 gm PO ONCE PRN; Protocol PRN Reason: Hypoglycemia Protocol Docusate Sodium (Colace) 100 mg PO DAILY [facility] Last Admin: 03/29/17 08:41 Dose: 100 mg Dorzolamide HCl (Trusopt) 1 drop OD TID [facility] Last Admin: 03/29/17 08:42 Dose: 1 drop Ferrous Sulfate (Feosol) 325 mg PO DAILY [facility] Last Admin: 03/29/17 08:41 Dose: 325 mg Fluticasone Propionate (Flonase) 2 spr ROSALINA DAILY [facility] Last Admin: 03/29/17 08:42 Dose: 2 spr Gabapentin (Neurontin) 300 mg PO Q8 [facility] Last Admin: 03/29/17 06:38 Dose: 300 mg Glucagon (Glucagen Diagnostic Kit) 0 mg IM STAT PRN; Protocol PRN Reason: Hypoglycemia Protocol Home Med (Non Formulary Medication) 1 drop OD Q8 PRN PRN Reason: Dry eyes Last Admin: 03/27/17 08:53 Dose: 1 drop Insulin Detemir (Levemir) 15 units SC HS [facility] Last Admin: 03/28/17 21:29 Dose: 15 units Insulin Detemir (Levemir) 17 units SC QAM [facility] Last Admin: 03/29/17 08:39 Dose: 17 unit Insulin Human Lispro (Humalog) 0 units SC ACHS [facility] PRN Reason: Protocol Last Admin: 03/29/17 07:59 Dose: 2 units Midodrine (Proamatine) 10 mg PO TID [facility] Last Admin: 03/29/17 08:41 Dose: 10 mg Sodium Chloride ([place] Nasal [place]) 2 sprays ROSALINA Q4 PRN PRN Reason: Nasal congestion Last Admin: 03/28/17 08:26 Dose: 2 sprays Tramadol HCl (Ultram) 50 mg PO Q12 PRN PRN Reason: Pain scale 4-10 Last Admin: 03/27/17 08:37 Dose: 50 mg - Labs Labs: 03/15/17 06:41 03/23/17 05:20 - Respiratory Exam Respiratory Exam: Clear to Ausculation Bilateral - Cardiovascular Exam Cardiovascular Exam: REGULAR RHYTHM - Additional Findings Additional findings: PULSE 89 Assessment and Plan - Assessment and Plan (Free Text) Assessment: RECENT CEREBRAL INFARCT DM STABLE CARDIAC STATUS Plan: CONTINUE CLOPIDOGREL, ATORVASTATIN, PROAMATINE, INSULIN
--- NOTE | 2017-03-29 16:50 | CP.PCM.PN ---
Subjective - Date & Time of Evaluation Date of Evaluation: 03/29/17 Time of Evaluation: 16:49 - Subjective Subjective: Patient seen in the room doing ok had left knee pain today but feels ok now and did not want to consider an injection at this point of time Objective - Vital Signs/Intake and Output Vital Signs (last 24 hours): Temp Pulse Resp BP Pulse Ox 96.8 F L 115 H 19 123/79 100 03/29/17 10:00 03/29/17 12:54 03/29/17 10:00 03/29/17 12:54 03/29/17 12:54 - Medications Medications: Current Medications Acetaminophen (Tylenol 325mg Tab) 650 mg PO Q6 PRN PRN Reason: Pain, Mild (1-3) Last Admin: 03/29/17 10:03 Dose: 650 mg Allopurinol (Zyloprim) 300 mg PO [facility] Last Admin: 03/28/17 21:29 Dose: 300 mg Atorvastatin Calcium (Lipitor) 80 mg PO [facility] Last Admin: 03/28/17 21:29 Dose: 80 mg Benzonatate (Tessalon Perles) 100 mg PO TID PRN PRN Reason: Cough Last Admin: 03/29/17 16:39 Dose: 100 mg Brimonidine Tartrate (Alphagan 0.2% Opht) 1 drop OD TID [facility] Last Admin: 03/29/17 12:26 Dose: 1 drop Calcium Acetate (Phoslo) 1,334 mg PO 0900,1300,1800 [facility] Last Admin: 03/29/17 12:28 Dose: 1,334 mg Cilostazol (Pletal) 100 mg PO BID [facility] Last Admin: 03/29/17 16:40 Dose: 100 mg Clopidogrel Bisulfate (Plavix) 75 mg PO [facility] Last Admin: 03/28/17 21:29 Dose: 75 mg Dextrose (Dextrose 50% Inj) 0 ml IV STAT PRN; Protocol PRN Reason: Hyglycemia Protocol Dextrose (Glutose 15) 0 gm PO ONCE PRN; Protocol PRN Reason: Hypoglycemia Protocol Docusate Sodium (Colace) 100 mg PO DAILY [facility] Last Admin: 03/29/17 08:41 Dose: 100 mg Dorzolamide HCl (Trusopt) 1 drop OD TID [facility] Last Admin: 03/29/17 16:41 Dose: 1 drop Ferrous Sulfate (Feosol) 325 mg PO DAILY [facility] Last Admin: 03/29/17 08:41 Dose: 325 mg Fluticasone Propionate (Flonase) 2 spr ROSALINA DAILY [facility] Last Admin: 03/29/17 08:42 Dose: 2 spr Gabapentin (Neurontin) 300 mg PO Q8 [facility] Last Admin: 03/29/17 13:04 Dose: 300 mg Glucagon (Glucagen Diagnostic Kit) 0 mg IM STAT PRN; Protocol PRN Reason: Hypoglycemia Protocol Home Med (Non Formulary Medication) 1 drop OD Q8 PRN PRN Reason: Dry eyes Last Admin: 03/27/17 08:53 Dose: 1 drop Insulin Detemir (Levemir) 15 units SC HS [facility] Last Admin: 03/28/17 21:29 Dose: 15 units Insulin Detemir (Levemir) 17 units SC QAM [facility] Last Admin: 03/29/17 08:39 Dose: 17 unit Insulin Human Lispro (Humalog) 0 units SC ACHS [facility] PRN Reason: Protocol Last Admin: 03/29/17 16:35 Dose: 3 units Insulin Human Lispro (Humalog) 2 units SC TIDAC [facility] Last Admin: 03/29/17 16:36 Dose: 2 u Midodrine (Proamatine) 10 mg PO TID [facility] Last Admin: 03/29/17 16:40 Dose: 10 mg Sodium Chloride ([place] Nasal [place]) 2 sprays [place]INA Q4 PRN PRN Reason: Nasal congestion Last Admin: 03/28/17 08:26 Dose: 2 sprays Tramadol HCl (Ultram) 50 mg PO Q12 PRN PRN Reason: Pain scale 4-10 Last Admin: 03/27/17 08:37 Dose: 50 mg - Labs Labs: 03/15/17 06:41 03/23/17 05:20
[2017-03-29] MEDS: [UNRECOGNIZED DRUG - OTHER] OD PRN (18:19)
[2017-03-30] MEDS: Insulin Lispro (humaLOG) 100 Units/ml Inj SC SCH ×7 (07:00→22:19)
[2017-03-30] MEDS: [UNRECOGNIZED DRUG - OTHER] OD PRN ×2 (07:04→19:41)
[2017-03-30] MEDS: Dorzolamide 2% Ophth Soln OD SCH ×3 (08:36→17:02)
[2017-03-30] MEDS: Brimonidine 0.2% 50 DROP/5 ML BOTTLE OD SCH ×3 (08:36→17:02)
[2017-03-30] MEDS: Cilostazol 100 mg Tab UD PO SCH ×2 (08:37→17:03)
[2017-03-30] MEDS: Insulin Detemir 100 Units/ml Inj SC SCH ×2 (08:37→22:25)
--- NOTE | 2017-03-30 11:11 | CP.PCM.PN ---
Subjective - Date & Time of Evaluation Date of Evaluation: 03/30/17 Time of Evaluation: 09:15 - Subjective Subjective: FEELS OK TODAY Objective - Vital Signs/Intake and Output Vital Signs (last 24 hours): Temp Pulse Resp BP Pulse Ox 97.7 F 110 H 20 127/62 98 03/30/17 07:58 03/30/17 07:58 03/30/17 07:58 03/30/17 07:58 03/30/17 07:58 - Medications Medications: Current Medications Acetaminophen (Tylenol 325mg Tab) 650 mg PO Q6 PRN PRN Reason: Pain, Mild (1-3) Last Admin: 03/29/17 10:03 Dose: 650 mg Allopurinol (Zyloprim) 300 mg PO HS [facility] Last Admin: 03/29/17 21:29 Dose: 300 mg Atorvastatin Calcium (Lipitor) 80 mg PO HS [facility] Last Admin: 03/29/17 21:29 Dose: 80 mg Brimonidine Tartrate (Alphagan 0.2% Opht) 1 drop OD TID [facility] Last Admin: 03/30/17 08:36 Dose: 1 drop Calcium Acetate (Phoslo) 1,334 mg PO 0900,1300,1800 [facility] Last Admin: 03/30/17 08:35 Dose: 1,334 mg Cilostazol (Pletal) 100 mg PO BID [facility] Last Admin: 03/30/17 08:37 Dose: 100 mg Clopidogrel Bisulfate (Plavix) 75 mg PO [facility] Last Admin: 03/29/17 21:30 Dose: 75 mg Dextrose (Dextrose 50% Inj) 0 ml IV STAT PRN; Protocol PRN Reason: Hyglycemia Protocol Dextrose (Glutose 15) 0 gm PO ONCE PRN; Protocol PRN Reason: Hypoglycemia Protocol Docusate Sodium (Colace) 100 mg PO DAILY [facility] Last Admin: 03/30/17 08:38 Dose: 100 mg Dorzolamide HCl (Trusopt) 1 drop OD TID [facility] Last Admin: 03/30/17 08:36 Dose: 1 drop Ferrous Sulfate (Feosol) 325 mg PO DAILY [facility] Last Admin: 03/30/17 08:38 Dose: 325 mg Fluticasone Propionate (Flonase) 2 spr ROSALINA DAILY [facility] Last Admin: 03/30/17 08:39 Dose: 2 spr Gabapentin (Neurontin) 300 mg PO Q8 [facility] Last Admin: 03/30/17 07:00 Dose: 300 mg Glucagon (Glucagen Diagnostic Kit) 0 mg IM STAT PRN; Protocol PRN Reason: Hypoglycemia Protocol Guaifenesin (Robitussin) 100 mg PO Q4 PRN PRN Reason: Cough Home Med (Non Formulary Medication) 1 drop OD Q8 PRN PRN Reason: Dry eyes Last Admin: 03/30/17 07:04 Dose: 1 drop Insulin Detemir (Levemir) 15 units SC HS [facility] Last Admin: 03/29/17 21:30 Dose: 15 units Insulin Detemir (Levemir) 17 units SC QAM [facility] Last Admin: 03/30/17 08:37 Dose: 17 unit Insulin Human Lispro (Humalog) 0 units SC ACHS [facility] PRN Reason: Protocol Last Admin: 03/30/17 07:00 Dose: 2 units Insulin Human Lispro (Humalog) 2 units SC TIDAC [facility] Last Admin: 03/30/17 07:00 Dose: 2 u Midodrine (Proamatine) 10 mg PO TID [facility] Last Admin: 03/30/17 08:35 Dose: 10 mg Sodium Chloride ([place] Nasal [place]) 2 sprays [facility]INA Q4 PRN PRN Reason: Nasal congestion Last Admin: 03/28/17 08:26 Dose: 2 sprays Tramadol HCl (Ultram) 50 mg PO Q12 PRN PRN Reason: Pain scale 4-10 Last Admin: 03/30/17 08:34 Dose: 50 mg - Labs Labs: 03/15/17 06:41 03/23/17 05:20 - Respiratory Exam Respiratory Exam: Clear to Ausculation Bilateral - Cardiovascular Exam Cardiovascular Exam: REGULAR RHYTHM - Extremities Exam Extremities Exam: Normal Inspection - Additional Findings Additional findings: BP WAS 90/65 YESTERDAY BUT NORMAL TODAY AT 127/62 AND HEART RATE IS 83 BPM Assessment and Plan - Assessment and Plan (Free Text) Assessment: RECENT CEREBRAL INFARCT HYPOTENSIVE EPISODES BUT STABLE AT PRESENT HYPERLIPIDEMIA DM Plan: CONTINUE PROAMATINE, CLOPIDOGREL, ATORVASTATIN AND INSULIN
[2017-03-30] MEDS: guaiFENesin 100 mg/5 ml Syrup UD PO PRN ×2 (13:12→17:04)
[2017-03-31] MEDS: Insulin Lispro (humaLOG) 100 Units/ml Inj SC SCH ×7 (07:39→21:18)
[2017-03-31] MEDS: [UNRECOGNIZED DRUG - OTHER] OD PRN (08:58)
[2017-03-31] MEDS: guaiFENesin 100 mg/5 ml Syrup UD PO PRN ×2 (09:00→17:30)
[2017-03-31] MEDS: Insulin Detemir 100 Units/ml Inj SC SCH (09:01)
[2017-03-31] MEDS: Cilostazol 100 mg Tab UD PO SCH ×2 (09:02→16:29)
[2017-03-31] MEDS: Brimonidine 0.2% 50 DROP/5 ML BOTTLE OD SCH ×3 (09:02→16:29)
[2017-03-31] MEDS: Dorzolamide 2% Ophth Soln OD SCH ×3 (09:02→16:29)
--- NOTE | 2017-03-31 10:02 | CP.PCM.PN ---
Subjective - Date & Time of Evaluation Date of Evaluation: 03/31/17 Time of Evaluation: 09:20 - Subjective Subjective: NO CHEST PAIN OR SOB FEELS GOOD Objective - Vital Signs/Intake and Output Vital Signs (last 24 hours): Temp Pulse Resp BP Pulse Ox 98.1 F 110 H 21 136/70 100 03/31/17 08:18 03/31/17 08:18 03/31/17 08:18 03/31/17 08:18 03/31/17 08:18 - Medications Medications: Current Medications Acetaminophen (Tylenol 325mg Tab) 650 mg PO Q6 PRN PRN Reason: Pain, Mild (1-3) Last Admin: 03/29/17 10:03 Dose: 650 mg Allopurinol (Zyloprim) 300 mg PO HS [facility] Last Admin: 03/30/17 22:24 Dose: 300 mg Atorvastatin Calcium (Lipitor) 80 mg PO HS [facility] Last Admin: 03/30/17 22:23 Dose: 80 mg Brimonidine Tartrate (Alphagan 0.2% Opht) 1 drop OD TID [facility] Last Admin: 03/31/17 09:02 Dose: 1 drop Calcium Acetate (Phoslo) 1,334 mg PO 0900,1300,1800 [facility] Last Admin: 03/31/17 09:01 Dose: 1,334 mg Cilostazol (Pletal) 100 mg PO BID [facility] Last Admin: 03/31/17 09:02 Dose: 100 mg Clopidogrel Bisulfate (Plavix) 75 mg PO [facility] Last Admin: 03/30/17 22:24 Dose: 75 mg Dextrose (Dextrose 50% Inj) 0 ml IV STAT PRN; Protocol PRN Reason: Hyglycemia Protocol Dextrose (Glutose 15) 0 gm PO ONCE PRN; Protocol PRN Reason: Hypoglycemia Protocol Docusate Sodium (Colace) 100 mg PO DAILY [facility] Last Admin: 03/31/17 09:01 Dose: 100 mg Dorzolamide HCl (Trusopt) 1 drop OD TID [facility] Last Admin: 03/31/17 09:02 Dose: 1 drop Ferrous Sulfate (Feosol) 325 mg PO DAILY [facility] Last Admin: 03/31/17 09:02 Dose: 325 mg Fluticasone Propionate (Flonase) 2 spr ROSALINA DAILY [facility] Last Admin: 03/31/17 09:00 Dose: 2 spr Gabapentin (Neurontin) 300 mg PO Q8 [facility] Last Admin: 03/31/17 06:27 Dose: 300 mg Glucagon (Glucagen Diagnostic Kit) 0 mg IM STAT PRN; Protocol PRN Reason: Hypoglycemia Protocol Guaifenesin (Robitussin) 100 mg PO Q4 PRN PRN Reason: Cough Last Admin: 03/31/17 09:00 Dose: 100 mg Home Med (Non Formulary Medication) 1 drop OD Q8 PRN PRN Reason: Dry eyes Last Admin: 03/31/17 08:58 Dose: 1 drop Insulin Detemir (Levemir) 15 units SC HS [facility] Last Admin: 03/30/17 22:25 Dose: 15 units Insulin Detemir (Levemir) 17 units SC QAM [facility] Last Admin: 03/31/17 09:01 Dose: 17 unit Insulin Human Lispro (Humalog) 0 units SC ACHS [facility] PRN Reason: Protocol Last Admin: 03/31/17 07:40 Dose: 2 units Insulin Human Lispro (Humalog) 2 units SC TIDAC [facility] Last Admin: 03/31/17 07:39 Dose: 2 units Midodrine (Proamatine) 10 mg PO TID [facility] Last Admin: 03/31/17 09:01 Dose: 10 mg Sodium Chloride ([place] Nasal [place]) 2 sprays [facility] Q4 PRN PRN Reason: Nasal congestion Last Admin: 03/28/17 08:26 Dose: 2 sprays Tramadol HCl (Ultram) 50 mg PO Q12 PRN PRN Reason: Pain scale 4-10 Last Admin: 03/31/17 08:59 Dose: 50 mg - Labs Labs: 03/15/17 06:41 03/23/17 05:20 - Respiratory Exam Respiratory Exam: Clear to Ausculation Bilateral - Cardiovascular Exam Cardiovascular Exam: REGULAR RHYTHM, +S1, +S2 - Extremities Exam Extremities Exam: Normal Inspection Assessment and Plan - Assessment and Plan (Free Text) Assessment: NO COMPLAINTSRECENT CEREBRAL INFARCT DM COPD STABLE CARDIAC STATUS Plan: CONTINUE CLOPIDOGREL, ATORVASTATIN, PROAMATINE, INSULIN FOR DISCHARGE TOMORROW
[2017-03-31] MEDS ORDERED: Insulin Detemir 100 Units/ml Inj SC SCH ×2 (11:11)
--- NOTE | 2017-03-31 13:34 | CP.PCM.PN ---
Subjective - Date & Time of Evaluation Date of Evaluation: 03/31/17 Time of Evaluation: 13:33 - Subjective Subjective: Patient in room pain is controlled set for d/c home tomorrow has done well daughter is trained will continue with therapies Objective - Vital Signs/Intake and Output Vital Signs (last 24 hours): Temp Pulse Resp BP Pulse Ox 98.1 F 110 H 21 136/70 100 03/31/17 08:18 03/31/17 08:18 03/31/17 08:18 03/31/17 08:18 03/31/17 08:18 - Medications Medications: Current Medications Acetaminophen (Tylenol 325mg Tab) 650 mg PO Q6 PRN PRN Reason: Pain, Mild (1-3) Last Admin: 03/29/17 10:03 Dose: 650 mg Allopurinol (Zyloprim) 300 mg PO [facility] Last Admin: 03/30/17 22:24 Dose: 300 mg Atorvastatin Calcium (Lipitor) 80 mg PO [facility] Last Admin: 03/30/17 22:23 Dose: 80 mg Brimonidine Tartrate (Alphagan 0.2% Opht) 1 drop OD TID [facility] Last Admin: 03/31/17 12:59 Dose: 1 drop Calcium Acetate (Phoslo) 1,334 mg PO 0900,1300,1800 [facility] Last Admin: 03/31/17 13:00 Dose: 1,334 mg Cilostazol (Pletal) 100 mg PO BID [facility] Last Admin: 03/31/17 09:02 Dose: 100 mg Clopidogrel Bisulfate (Plavix) 75 mg PO [facility] Last Admin: 03/30/17 22:24 Dose: 75 mg Dextrose (Dextrose 50% Inj) 0 ml IV STAT PRN; Protocol PRN Reason: Hyglycemia Protocol Dextrose (Glutose 15) 0 gm PO ONCE PRN; Protocol PRN Reason: Hypoglycemia Protocol Docusate Sodium (Colace) 100 mg PO DAILY [facility] Last Admin: 03/31/17 09:01 Dose: 100 mg Dorzolamide HCl (Trusopt) 1 drop OD TID [facility] Last Admin: 03/31/17 12:59 Dose: 1 drop Ferrous Sulfate (Feosol) 325 mg PO DAILY [facility] Last Admin: 03/31/17 09:02 Dose: 325 mg Fluticasone Propionate (Flonase) 2 spr ROSALINA DAILY [facility] Last Admin: 03/31/17 09:00 Dose: 2 spr Gabapentin (Neurontin) 300 mg PO Q8 [facility] Last Admin: 03/31/17 13:00 Dose: 300 mg Glucagon (Glucagen Diagnostic Kit) 0 mg IM STAT PRN; Protocol PRN Reason: Hypoglycemia Protocol Guaifenesin (Robitussin) 100 mg PO Q4 PRN PRN Reason: Cough Last Admin: 03/31/17 09:00 Dose: 100 mg Home Med (Non Formulary Medication) 1 drop OD Q8 PRN PRN Reason: Dry eyes Last Admin: 03/31/17 08:58 Dose: 1 drop Insulin Detemir (Levemir) 19 units SC QAM [facility] Insulin Detemir (Levemir) 19 units SC HS [facility] Insulin Human Lispro (Humalog) 0 units SC ACHS [facility] PRN Reason: Protocol Last Admin: 03/31/17 11:46 Dose: 4 units Insulin Human Lispro (Humalog) 2 units SC TIDAC [facility] Last Admin: 03/31/17 11:46 Dose: 2 units Midodrine (Proamatine) 10 mg PO TID [facility] Last Admin: 03/31/17 13:00 Dose: 10 mg Sodium Chloride ([place] Nasal [place]) 2 sprays [facility] Q4 PRN PRN Reason: Nasal congestion Last Admin: 03/28/17 08:26 Dose: 2 sprays Tramadol HCl (Ultram) 50 mg PO Q12 PRN PRN Reason: Pain scale 4-10 Last Admin: 03/31/17 08:59 Dose: 50 mg - Labs Labs: 03/15/17 06:41 03/23/17 05:20
[2017-03-31 20:34] VITALS: TEMP 97
[2017-04-01] MEDS: Insulin Lispro (humaLOG) 100 Units/ml Inj SC SCH ×4 (07:09→12:21)
[2017-04-01 08:04] VITALS: BP 149/84; PULSE 100; RESP 20; O2SAT 97
[2017-04-01] MEDS: Brimonidine 0.2% 50 DROP/5 ML BOTTLE OD SCH ×2 (08:28→12:21)
[2017-04-01] MEDS: Dorzolamide 2% Ophth Soln OD SCH ×2 (08:29→12:21)
[2017-04-01] MEDS: Cilostazol 100 mg Tab UD PO SCH (08:31)
[2017-04-01] MEDS: guaiFENesin 100 mg/5 ml Syrup UD PO PRN (08:31)
[2017-04-01] MEDS: [UNRECOGNIZED DRUG - OTHER] OD PRN (08:34)
--- NOTE | 2017-04-01 10:09 | CP.PCM.DIS ---
Provider - Provider Date of Admission: 03/13/17 17:50 Attending physician: Isadora Miranda MD Primary care physician: Isadora Marquis Consults: Dr. Monk- cardiology Time Spent in preparation of Discharge (in minutes): 30 Diagnosis - Discharge Diagnosis (1) CVA (cerebral vascular accident) Status: Acute Priority: Medium Hospital Course - Lab Results Lab Results: Most Recent Lab Values WBC 7.1 K/uL (4.8-10.8) 03/15/17 06:41 RBC 4.06 Mil/uL (3.80-5.20) 03/15/17 06:41 Hgb 12.1 g/dL (12.0-16.0) 03/15/17 06:41 Hct 37.5 % (34.0-47.0) 03/15/17 06:41 MCV 92.2 fl (81.0-99.0) 03/15/17 06:41 MCH 29.8 pg (27.0-31.0) 03/15/17 06:41 MCHC 32.3 g/dL (33.0-37.0) L 03/15/17 06:41 RDW 15.4 % (11.5-14.5) H 03/15/17 06:41 Plt Count 190 K/uL (130-400) 03/15/17 06:41 Sodium 141 mmol/l (132-148) 03/23/17 05:20 Potassium 4.0 MMOL/L (3.6-5.0) 03/23/17 05:20 Chloride 105 mmol/L (98-107) 03/23/17 05:20 Carbon Dioxide 25 mmol/L (22-30) 03/23/17 05:20 Anion Gap 14 (10-20) 03/23/17 05:20 BUN 26 mg/dl (7-17) H 03/23/17 05:20 Creatinine 1.9 mg/dL (0.7-1.2) H 03/23/17 05:20 Est GFR ( Amer) 32 03/23/17 05:20 Est GFR (Non-Af Amer) 26 03/23/17 05:20 POC Glucose (mg/dL) 167 mg/dL (65-110) H 04/01/17 06:30 Random Glucose 178 mg/dL (65-105) H 03/23/17 05:20 Calcium 9.8 mg/dL (8.4-10.2) 03/23/17 05:20 - Hospital Course Hospital Course: 71 yr old F admitted to [facility]hab s/p 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 Patient has PMHx of CKD stage 3, Anemia, Asthma, COPD, IDDM, HTN, peripheral artery disease (2011 R LE balloon angioplasty, 2012 L LE balloon angioplasty), hypercholesterolemia, glaucoma, L eye blindness, TIA (2002: dizziness, vertigo; 2003: dysarthria). Patient tolerated PT with improvement in strength and coordination, was discharged with instructions to discontinue Metoprolol and Lasix, take the rest of her home meds as prescribed. Patient has follow up appts with her PMD Dr. Miranda on May 02, 2017 , neurology-Dr. Inman as scheduled in 1 week will make appt to follow up with her parts cataloger Dr. Oliva 2-3 weeks, combat engineer Dr. Olmstead in 2-3 weeks , sifting operator Dr. Monk in 2-[address] Arias (vascular) in 2-3 weeks. - Date & Time of H&P Date of H&P: 03/14/17 Time of H&P: 14:52 Discharge Exam - Head Exam Head Exam: ATRAUMATIC, NORMOCEPHALIC - Eye Exam Eye Exam: EOMI (in right eye; left eye not examined due to blindness), PERRL ( in right eye, left eye hazy over conjunctiva) - ENT Exam ENT Exam: Mucous Membranes Dry - Neck Exam Neck exam: Full Rom - Respiratory Exam Respiratory Exam: Clear to PA & Lateral, NORMAL BREATHING PATTERN - Cardiovascular Exam Cardiovascular Exam: REGULAR RHYTHM, +S1, +S2 - GI/Abdominal Exam GI & Abdominal Exam: Normal Bowel Sounds, Soft (obese). absent: Distended - Extremities Exam Extremities exam: full ROM (LUE and bilateral LE's, stable strength and controlled movement of RUE) - Back Exam Back exam: absent: CVA tenderness (L), CVA tenderness (R) - Neurological Exam Neurological exam: Alert, Oriented x3 - Psychiatric Exam Psychiatric exam: Normal Affect, Normal Mood - Skin Skin Exam: Dry, Intact, Warm Discharge Plan - Discharge Medications Prescriptions: Gabapentin [Neurontin] 300 mg PO Q8 #90 tab Insulin Glargine, Recombina [Lantus] 20 unit SC QAM #1 vial Insulin Lispro [Humalog (Insulin Lispro)] 100 unit SQ WM #1 vial Midodrine [Proamatine] 10 mg PO TID #90 tab - Follow Up Plan Condition: GOOD Disposition: HOME/ ROUTINE Instructions: Insulin Glargine (By injection), Insulin Lispro (By injection), Diabetic Hypoglycemia (GEN), Diabetes Mellitus Type 2 in Adults (DC), Self Care Measures After a Stroke (DC), Stroke (DC) Additional Instructions: -Follow up with Dr. Miranda on May 02, 2017 -Follow up with neurology-Dr. Inman as scheduled in 1 week -Follow up with your parts cataloger Dr. Oliva 2-3 weeks -Follow up with your combat engineer Dr. Olmstead in 2-3 weeks -Follow up with your sifting operator Dr. Monk in 2-3 weeks -Follow up with your Dr. Arias (vascular) in 2-3 weeks -discontinue Lasix for now, discontinue Metoprolol -take the rest of your home meds as prescribed Referrals: Roseann Olmstead MD [Medical Doctor] - Isadora Miranda MD [Family Provider] - Alton Inman MD [Staff Provider] - Luis Cruz MD [Staff Provider] - Clinical Quality Measures - CQM - Stroke Antithrombotic Prescribed: Yes Anticoagulation Prescribed for Atrial Flutter, Atrial Fibrillation and History of:: Not Applicable Statin prescribed: Yes - CQM - VTE Did patient receive overlap therapy during hosptialization?: No If no, please select a reason why?: Risk of Bleeding - Date & Time of Discharge Summary Date of Discharge Summary: 04/01/17 Time of Discharge Summary: 15:32
--- NOTE | 2017-04-01 11:02 | CP.PCM.PN ---
Subjective - Date & Time of Evaluation Date of Evaluation: 04/01/17 Time of Evaluation: 09:45 - Subjective Subjective: FEELS OK NO CHEST PAIN, SOB OR PALPITATIONS Objective - Vital Signs/Intake and Output Vital Signs (last 24 hours): Temp Pulse Resp BP Pulse Ox 97.0 F L 100 H 20 149/84 97 04/01/17 08:04 04/01/17 08:04 04/01/17 08:04 04/01/17 08:04 04/01/17 08:04 - Medications Medications: Current Medications Acetaminophen (Tylenol 325mg Tab) 650 mg PO Q6 PRN PRN Reason: Pain, Mild (1-3) Last Admin: 03/29/17 10:03 Dose: 650 mg Allopurinol (Zyloprim) 300 mg PO HS [facility] Last Admin: 03/31/17 21:07 Dose: 300 mg Atorvastatin Calcium (Lipitor) 80 mg PO [facility] Last Admin: 03/31/17 21:07 Dose: 80 mg Brimonidine Tartrate (Alphagan 0.2% Opht) 1 drop OD TID [facility] Last Admin: 04/01/17 08:28 Dose: 1 drop Calcium Acetate (Phoslo) 1,334 mg PO 0900,1300,1800 [facility] Last Admin: 04/01/17 08:31 Dose: 1,334 mg Cilostazol (Pletal) 100 mg PO BID [facility] Last Admin: 04/01/17 08:31 Dose: 100 mg Clopidogrel Bisulfate (Plavix) 75 mg PO [facility] Last Admin: 03/31/17 21:07 Dose: 75 mg Dextrose (Dextrose 50% Inj) 0 ml IV STAT PRN; Protocol PRN Reason: Hyglycemia Protocol Dextrose (Glutose 15) 0 gm PO ONCE PRN; Protocol PRN Reason: Hypoglycemia Protocol Docusate Sodium (Colace) 100 mg PO DAILY [facility] Last Admin: 04/01/17 08:33 Dose: 100 mg Dorzolamide HCl (Trusopt) 1 drop OD TID [facility] Last Admin: 04/01/17 08:29 Dose: 1 drop Ferrous Sulfate (Feosol) 325 mg PO DAILY [facility] Last Admin: 04/01/17 08:33 Dose: 325 mg Fluticasone Propionate (Flonase) 2 spr ROSALINA DAILY [facility] Last Admin: 04/01/17 08:28 Dose: 2 spr Gabapentin (Neurontin) 300 mg PO Q8 [facility] Last Admin: 04/01/17 06:28 Dose: 300 mg Glucagon (Glucagen Diagnostic Kit) 0 mg IM STAT PRN; Protocol PRN Reason: Hypoglycemia Protocol Guaifenesin (Robitussin) 100 mg PO Q4 PRN PRN Reason: Cough Last Admin: 04/01/17 08:31 Dose: 100 mg Home Med (Non Formulary Medication) 1 drop OD Q8 PRN PRN Reason: Dry eyes Last Admin: 04/01/17 08:34 Dose: 1 drop Insulin Detemir (Levemir) 19 units SC QAM [facility] Last Admin: 04/01/17 08:32 Dose: 19 unit Insulin Detemir (Levemir) 19 units SC HS [facility] Last Admin: 03/31/17 21:16 Dose: 19 units Insulin Human Lispro (Humalog) 0 units SC ACHS [facility] PRN Reason: Protocol Last Admin: 04/01/17 07:09 Dose: 2 units Insulin Human Lispro (Humalog) 2 units SC TIDAC [facility] Last Admin: 04/01/17 07:11 Dose: 2 units Midodrine (Proamatine) 10 mg PO TID [facility] Last Admin: 04/01/17 08:31 Dose: 10 mg Sodium Chloride ([place] Nasal [place]) 2 sprays ROSALINA Q4 PRN PRN Reason: Nasal congestion Last Admin: 03/28/17 08:26 Dose: 2 sprays Tramadol HCl (Ultram) 50 mg PO Q12 PRN PRN Reason: Pain scale 4-10 Last Admin: 03/31/17 08:59 Dose: 50 mg - Labs Labs: 03/15/17 06:41 03/23/17 05:20 - Respiratory Exam Respiratory Exam: Clear to Ausculation Bilateral - Cardiovascular Exam Cardiovascular Exam: REGULAR RHYTHM, +S1, +S2 - Extremities Exam Extremities Exam: Normal Inspection Assessment and Plan - Assessment and Plan (Free Text) Assessment: RECENT CEREBRAL INFARCT COPD DM Plan: PATIENT TO BE DISCHARGED TODAY CONTINUE CLOPIDOGREL, ATORVASTATIN, PROAMATINE, INSULIN OV WITH ME IN 2 WEEKS TO CHECK BLOOD PRESSURE AND HEART RATE OFF METOPROLOL
== END 2017-04-01 15:00 | DRG 57 ==
PROVIDERS: ADMIT Family Medicine; ATTEND Family Medicine
PROC: F07M6FZ Therapeutic Exercise Treatment of Musculoskeletal System - Whole Body using Assistive, Adaptive, Supportive or Protective Equipment (ICD-10-PCS; principal; 2017-03-13)
PROC: F08Z4FZ Home Management Treatment using Assistive, Adaptive, Supportive or Protective Equipment (ICD-10-PCS; 2017-03-13)
PROC: F07Z9FZ Gait Training/Functional Ambulation Treatment using Assistive, Adaptive, Supportive or Protective Equipment (ICD-10-PCS; 2017-03-13)
PROC: F06Z3ZZ Aphasia Treatment (ICD-10-PCS; 2017-03-13)
DX: I69.951 Hemiplegia and hemiparesis following unspecified cerebrovascular disease affecting right dominant side (principal); E11.22 Type 2 diabetes mellitus with diabetic chronic kidney disease; I95.9 Hypotension, unspecified; J44.9 Chronic obstructive pulmonary disease, unspecified; D64.9 Anemia, unspecified; N18.3 Chronic kidney disease, stage 3 (moderate); I69.920 Aphasia following unspecified cerebrovascular disease; I69.990 Apraxia following unspecified cerebrovascular disease; E03.9 Hypothyroidism, unspecified; E66.9 Obesity, unspecified; Z68.37 Body mass index [BMI] 37.0-37.9, adult; E78.00 Pure hypercholesterolemia, unspecified; E78.5 Hyperlipidemia, unspecified; G89.29 Other chronic pain; H40.9 Unspecified glaucoma; H54.42 Blindness, left eye, normal vision right eye; I12.9 Hypertensive chronic kidney disease with stage 1 through stage 4 chronic kidney disease, or unspecified chronic kidney disease; I73.9 Peripheral vascular disease, unspecified; M10.9 Gout, unspecified; Z79.4 Long term (current) use of insulin; Z82.49 Family history of ischemic heart disease and other diseases of the circulatory system; Z83.3 Family history of diabetes mellitus; Z87.891 Personal history of nicotine dependence; M54.5 Low back pain; R00.0 Tachycardia, unspecified

== ENCOUNTER 2018-02-19 16:21 | Inpatient (IN) | payer MEDICARE ==
[2018-02-19 16:21] VITALS: BMI 37.8
--- NOTE | 2018-02-19 17:24 | ED PDOC ---
HPI: Eye Injury/Pain Time Seen by Provider: 02/19/18 17:07 Chief Complaint (Nursing): Eye Problem Chief Complaint (Provider): right visual deficit x 3 days History Per: Patient History/Exam Limitations: no limitations Onset/Duration Of Symptoms: Days (3) Current Symptoms Are (Timing): Still Present Injury To Eye?: No Associated Symptoms: Decreased Vision. denies: Swelling, Itching, Discharge From Eye Additional Complaint(s): 72 yr old F brought to ED by daughter with complaint of partial right eye visual loss x 3 days s/p recent right eye glaucoma surgery 2 weeks ago. PMHx includes left eye blindness, TIA (2002 dizziness/vertigo, 2003 dysarthria), CVA 03/2017, hypertension, anemia, asthma, peripheral arterial disease (2011 RLE balloon angioplasty, 2012 LLE balloon angioplasty, IDDM type 2, CKD stage 3, former smoker. Denies one sided upper or lower body weakness, dizziness, headache, difficulty swallowing or chest pain. PMD: Dr. Almonte [facility] -Neurologist: Dr. Inman -Student Financial Aid Manager: Dr. Monk -Vascular: Dr. Arias Medications: see ambulatory list -extensive polypharmacy Allergies: pregabalin Past Medical History Vital Signs: Last Vital Signs Temp 98 F 02/19/18 16:45 Pulse 92 H 02/19/18 16:45 Resp 20 02/19/18 16:45 BP 175/77 H 02/19/18 16:45 Pulse Ox 98 02/19/18 16:45 - Medical History PMH: Anemia, Asthma, COPD, Diabetes (IDDM poor control ), HTN, Hypercholesterolemia, Chronic Kidney Disease (stage 3), TIA Denies: HIV - Surgical History Surgical History: Tonsillectomy (1948) - Family History Family History: States: Unknown Family Hx - Social History Current smoker - smoking cessation education provided: No Ex-Smoker (has not smoked in the last 12 months): Yes Alcohol: None Drugs: Denies - Immunization History Hx Tetanus Toxoid Vaccination: Yes (2011) - Home Medications Home Medications: Ambulatory Orders Medication Instructions Recorded Allopurinol [Zyloprim] 300 mg PO HS 03/13/17 Atorvastatin [Lipitor] 80 mg PO HS 03/13/17 Brimonidine 0.2% [Alphagan 0.2% 1 drop OD TID 03/13/17 Opht] Calcium Acetate [Phoslo] 1,334 mg PO WM 03/13/17 Clopidogrel [Plavix] 75 mg PO HS 03/13/17 Dorzolamide 2% [Trusopt] 1 drop OD TID 03/13/17 Gabapentin [Neurontin] 300 mg PO Q8 #90 tab 04/01/17 Acetaminophen [Tylenol Extra 1,000 mg PO Q8 PRN 02/19/18 Strength] Alpha Lipoic Acid [Alpha Lipoic 1 cap PO BID 02/19/18 Acid] Ascorbic Acid [Vitamin C] 1,000 mg PO DAILY 02/19/18 Biotin [Biotin] 1 cap PO DAILY 02/19/18 Cholecalciferol (Vitamin D3) 5,000 unit PO Q48H 02/19/18 [Vitamin D3] Ferrous Fumarate [Dacia-Sequel] 1 tab PO DAILY 02/19/18 Fludrocortisone [Florinef] 0.1 mg PO DAILY 02/19/18 Fluticasone Nasal [Flonase] 1 spray ROSALINA DAILY PRN 02/19/18 Insulin Glargine, Recombina 32 unit SC DAILY 02/19/18 [Lantus] Insulin Lispro [Humalog (Insulin 4 unit SQ WM PRN 02/19/18 Lispro)] Latanoprost 0.005% Opht [Xalatan 1 drop OD HS 02/19/18 Opht] Metoprolol Succinate [Toprol XL] 12.5 mg PO DAILY PRN 02/19/18 Midodrine [Proamatine] 5 mg PO TID PRN 02/19/18 Rivaroxaban [Xarelto] 15 mg PO HS 02/19/18 Turmeric Root Extract [Turmeric] 1,000 mg PO DAILY 02/19/18 Ubidecarenone [Coenzyme Q10] 400 mg PO DAILY 02/19/18 Vitamin B Complex [Super B-50 1 cap PO DAILY 02/19/18 Complex] Vitamin E [Vitamin E] 1,000 unit PO DAILY 02/19/18 traMADol [Ultram] 100 mg PO Q6 PRN 02/19/18 - Allergies Allergies/Adverse Reactions: Allergies Allergy/AdvReac Type Severity Reaction Status Date / Time pregabalin [From Lyrica] Allergy Nausea, Verified 02/19/18 16:50 Generalize pain Review of Systems Constitutional: Negative for: Fever, Chills, Weakness Eyes: Positive for: Vision Change. Negative for: Pain, Eyelid Inflammation, Redness ENT: Negative for: Nose Discharge, Throat Pain Cardiovascular: Negative for: Chest Pain, Palpitations, Light Headedness Respiratory: Negative for: Cough, Shortness of Breath, Hemoptysis Gastrointestinal: Negative for: Nausea, Vomiting, Abdominal Pain Genitourinary Female: Negative for: Dysuria, Frequency Musculoskeletal: Negative for: Neck Pain, Shoulder Pain, Arm Pain Skin: Negative for: Rash, Lesions Neurological: Negative for: Weakness, Change in Speech (baseline dysarthria), Confusion, Altered Mental Status, Headache, Dizziness Physical Exam - Physical Exam Appears: Positive for: No Acute Distress Head Exam: Positive for: ATRAUMATIC, NORMOCEPHALIC Skin: Positive for: Warm, Dry Eye Exam: Positive for: EOMI (right), Other (equivocal right eye visual field test). Negative for: PERRL (occluded left pupil, left eye blindness, right eye pupil not reactive to light), Periorbital swelling, Periorbital tenderness, Conjunctival injection ENT: Negative for: Tonsillar Exudate Neck: Positive for: Painless ROM, Supple Cardiovascular/Chest: Positive for: Regular Rate, Rhythm. Negative for: Gallop , Murmur Respiratory: Positive for: Normal Breath Sounds. Negative for: Crackles, Rhonchi Pulses-Carotid (L): 2+ Pulses-Carotid (R): 2+ Pulses-Dorsalis Pedis (L): 2+ Pulses-Dorsalis Pedis (R): 2+ Pulses-Radial (L): 2+ Pulses-Radial (R): 2+ Gastrointestinal/Abdominal: Positive for: Bowel Sounds (present), Soft. Negative for: Tenderness Back: Negative for: L CVA Tenderness, R CVA Tenderness Extremity: Positive for: Normal ROM, Other (strength 5/5 in bilateral UE and LE) . Negative for: Tenderness, Pedal Edema Lymphatic: Negative for: Adenopathy Neurologic/Psych: Positive for: Alert, Oriented, Mood/Affect (normal/full). Negative for: Motor/Sensory Deficits, Aphasia, Facial Droop - Laboratory Results Result Diagrams: 02/19/18 18:05 02/19/18 18:05 - ECG O2 Sat by Pulse Oximetry: 98 - Progress ED Course And Treament: -face worker, nursing swallow screen, vital signs Q15min -CT head without contrast: large chronic left MCA infarct, small hyperacute infarct cannot be excluded -EKG: -CBC w/diff: within normal limits -CMP: BUN/Cr 37/1.5 -type and screen: -HbA1c: -lipid panel: within normal limits -troponin: negative -PT, PTT/INR: 1.2, 39/1.0 -CXR: -IV NS 1L at 100 mls/hr: -accucheck: 104 mg/dL -Neurology consult: MRI brain, MRA head, ASA 325mg, Plavix 75mg , admit to tele Condition: Unchanged Disposition - Clinical Impression Clinical Impression: CVA (cerebral vascular accident) - Patient ED Disposition Is Patient to be Admitted: Yes Discussed With DrMickie: Jesenia Kwan (Dr. Muro-neurologist) Doctor Will See Patient In The: Hospital Counseled Patient/Family Regarding: Diagnosis - Disposition Disposition Time: 20:06 Condition: GUARDED Forms: [employer] (Hebrew)
[2018-02-19] MEDS: Sodium Chloride 0.9% 1,000 ML IV SCH (17:54)
--- NOTE | 2018-02-19 18:00 | CT ---
PROCEDURE: CT HEAD WITHOUT CONTRAST. HISTORY: Acute right zoe visual deficit x 3 days COMPARISON: Comparison made with MRI and CT scan of the brain dated 03/11/2017 and 03/10/2017 respectively. TECHNIQUE: Axial computed tomography images were obtained through the head/brain without intravenous contrast. Radiation dose: Total exam DLP = mGy-cm. This CT exam was performed using one or more of the following dose reduction techniques: Automated exposure control, adjustment of the mA and/or kV according to patient size, and/or use of iterative reconstruction technique. FINDINGS: HEMORRHAGE: No acute parenchymal, subarachnoid nor extra-axial hemorrhage. BRAIN: Large chronic left MCA territory infarct is present and has undergone evolution when compared with prior MRI dated demonstrated acute infarct changes at that time. In addition, there is a chronic on right frontal and right basal ganglia infarct with chronic appearing bilateral basal nuclei lacunar type infarcts. In addition, mild diffuse/confluent chronic periventricular white matter ischemic changes are also felt to be present. Minor ischemic changes within the brainstem are less well visualized on this exam compared to high-resolution MRI. Note that the possibility of a small hyperacute infarct cannot be excluded on this exam. Clinical correlation is therefore recommended. Moderate generalized volume loss. Moderate spell spell spell Vascular calcifications both carotid siphons VENTRICLES: No obstructive hydrocephalus . CALVARIUM: No acute calvarial fractures. PARANASAL SINUSES: Unremarkable as visualized. No significant inflammatory changes. MASTOID AIR CELLS: Unremarkable as visualized. No inflammatory changes. OTHER FINDINGS: Re- demonstrated phthisis bulbi left globe. IMPRESSION: Large chronic left MCA territory infarct is present and has undergone evolution when compared with prior MRI dated demonstrated acute infarct changes at that time. In addition, there is a chronic on right frontal and right basal ganglia infarct with chronic appearing bilateral basal nuclei lacunar type infarcts. In addition, mild diffuse/confluent chronic periventricular white matter ischemic changes are also felt to be present. Minor ischemic changes within the brainstem are less well visualized on this exam compared to high-resolution MRI. Note that the possibility of a small hyperacute infarct cannot be excluded on this exam. Clinical correlation is therefore recommended. Moderate generalized volume loss.
[2018-02-19 18:15] LABS: BASO # 0.1 K/uL (0.0-0.2); BASO % 1.1 % (0.0-2.0); EOS # 0.2 K/uL (0.0-0.7); EOS % 2.8 % (0.0-4.0); HEMOGLOBIN 12.4 g/dL (12.0-16.0); LYMPH # 1.9 K/uL (1.0-4.3); LYMPH % 31.5 % (20.0-40.0); MEAN CELL VOLUME 93.9 fl (81.0-99.0); MEAN CORPUSCULAR HEMOGLOBIN 31.6 pg (27.0-31.0); MEAN CORPUSCULAR HGB CONC 33.6 g/dL (33.0-37.0); MEAN PLATELET VOLUME 8.9 fl (7.2-11.7); MONO # 0.5 K/uL (0.0-0.8); MONO % 8.6 % (0.0-10.0); NEUT # 3.4 K/uL (1.8-7.0); RBC 3.93 Mil/uL (3.80-5.20); RED CELL DISTRIBUTION WIDTH 14.6 % (11.5-14.5); WHITE BLOOD COUNT 6.1 K/uL (4.8-10.8)
[2018-02-19 18:22] LABS: ALB/GLOB RATIO 1.3 (1.0-2.1); ALBUMIN 4.1 g/dL (3.5-5.0); ALT/SGPT 33 U/L (9-52); AST/SGOT 35 U/L (14-36); BLOOD UREA NITROGEN 37 mg/dl (7-17); CALCIUM 9.8 mg/dL (8.4-10.2); GFR AFRICAN-AMERICAN 41; GFR NON-AFRICAN AMERICAN 34; HDL CHOLESTEROL 50 MG/DL (30-70)
[2018-02-19 18:25] LABS: PROTHROMBIN TIME 11.2 Seconds (9.8-13.1)
[2018-02-19] MEDS ORDERED: Metoprolol 1 mg/ml Inj IVP STA (18:30)
[2018-02-19 18:33] LABS: LDL CHOLESTEROL 32 mg/dL (0-129)
[2018-02-19] MEDS ORDERED: Metoprolol 1 mg/ml Inj IVP ONE (18:46)
[2018-02-19] MEDS ORDERED: Insulin Lispro (humaLOG) 100 Units/ml Inj SC PRN (20:23)
[2018-02-19] MEDS ORDERED: Metoprolol Succinate 25 mg XL Tab PO PRN (20:23)
[2018-02-19] MEDS ORDERED: Acetaminophen 650mg/20.3ml solution UD PO PRN (20:23)
--- NOTE | 2018-02-19 20:23 | CP.PCM.HP ---
History of Present Illness - History of Present Illness History of Present Illness: CC: VISUAL DEFICIT 3 DAYS HPI: 72 F PMH hx CVA,/TIA, HTN, PAD s/p bilateral balloon angioplasty, CKD, IDDM , Afib on Xarelto, L eye blind blindness, patient of Dr. Lobito Almonte, presents to ED accompanied by daughter for a 3 day history of acute partial right eye visual loss, constant, not improving, s/p recent right eye glaucoma surgery 2 weeks ago. In ED, Neuro consulted Dr. Muro, likely CVA, MRI MRA for tomorrow. ASA and Xarelto, hold Plavix, continue Statin. HD stable, no new changes. pt physicians- PMD: Lobito Mathew Neurologist: Dr. Inman Parts Administrator: Dr. Monk Vascular: Dr. Arias Present on Admission - Present on Admission Any Indicators Present on Admission: Yes Past Patient History - Past Medical History & Family History Past Medical History?: Yes - Past Social History Alcohol: None Drugs: Denies - CARDIAC Hx Hypercholesterolemia: Yes Hx Hypertension: Yes - PULMONARY Hx Asthma: Yes Hx Chronic Obstructive Pulmonary Disease (COPD): Yes - NEUROLOGICAL Hx Transient Ischemic Attacks (TIA): Yes - HEENT Hx HEENT Problems: Yes Hx Blind: Yes (Left eye no vision) - RENAL Hx Chronic Kidney Disease: Yes (stage 3) - ENDOCRINE/METABOLIC Hx Endocrine Disorders: Yes Hx Diabetes Mellitus Type 2: Yes - HEMATOLOGICAL/ONCOLOGICAL Hx Anemia: Yes Hx Human Immunodeficiency Virus (HIV): No - INTEGUMENTARY Hx Dermatological Problems: No - GASTROINTESTINAL Hx Gastrointestinal Disorders: Yes HX Swallowing Problems: Yes - GENITOURINARY/GYNECOLOGICAL Hx Genitourinary Disorders: No - PSYCHIATRIC Hx Psychophysiologic Disorder: No Hx Substance Use: No - SURGICAL HISTORY Hx Tonsillectomy: Yes (1947) - ANESTHESIA Hx Anesthesia: Yes Hx Anesthesia Reactions: No Hx Malignant Hyperthermia: No Meds Allergies/Adverse Reactions: Allergies Allergy/AdvReac Type Severity Reaction Status Date / Time pregabalin [From Lyrica] Allergy Nausea, Verified 02/19/18 16:50 Generalize pain Results - Vital Signs Recent Vital Signs: Last Vital Signs Temp 98 F 02/19/18 16:45 Pulse 86 02/19/18 18:59 Resp 20 02/19/18 16:45 BP 210/106 H 02/19/18 18:59 Pulse Ox 98 05/14/18 20:07 - Labs Result Diagrams: 02/19/18 18:05 02/19/18 18:05 Labs: Laboratory Results - last 24 hr 02/19/18 02/19/18 02/19/18 18:05 18:05 18:05 WBC 6.1 RBC 3.93 Hgb 12.4 Hct 36.9 MCV 93.9 MCH 31.6 H MCHC 33.6 RDW 14.6 H Plt Count 188 MPV 8.9 Neut % (Auto) 56.0 Lymph % (Auto) 31.5 [place] % (Auto) 8.6 Eos % (Auto) 2.8 Baso % (Auto) 1.1 Neut # (Auto) 3.4 Lymph # (Auto) 1.9 [place] # (Auto) 0.5 Eos # (Auto) 0.2 Baso # (Auto) 0.1 PT 11.2 INR 1.0 APTT 39.0 H Sodium 145 Potassium 4.1 Chloride 103 Carbon Dioxide 27 Anion Gap 19 BUN 37 H Creatinine 1.5 H Est GFR ( Amer) 41 Est GFR (Non-Af Amer) 34 POC Glucose (mg/dL) Random Glucose 115 H Calcium 9.8 Total Bilirubin 0.5 AST 35 ALT 33 Alkaline Phosphatase 63 Troponin I < 0.0120 Total Protein 7.3 Albumin 4.1 Globulin 3.2 Albumin/Globulin Ratio 1.3 Triglycerides 94 Cholesterol 113 LDL Cholesterol Direct 32 HDL Cholesterol 50 02/19/18 18:13 WBC RBC Hgb Hct MCV MCH MCHC RDW Plt Count MPV Neut % (Auto) Lymph % (Auto) [place] % (Auto) Eos % (Auto) Baso % (Auto) Neut # (Auto) Lymph # (Auto) [place] # (Auto) Eos # (Auto) Baso # (Auto) PT INR APTT Sodium Potassium Chloride Carbon Dioxide Anion Gap BUN Creatinine Est GFR ( Amer) Est GFR (Non-Af Amer) POC Glucose (mg/dL) 104 Random Glucose Calcium Total Bilirubin AST ALT Alkaline Phosphatase Troponin I Total Protein Albumin Globulin Albumin/Globulin Ratio Triglycerides Cholesterol LDL Cholesterol Direct HDL Cholesterol Assessment & Plan - Assessment and Plan (Free Text) Plan: 72 F PMH hx CVA,/TIA, HTN, PAD s/p bilateral balloon angioplasty, CKD, IDDM, Afib on Xarelto, L eye blind blindness, patient of Dr. Lobito Almonte, presents to ED accompanied by daughter for a 3 day history of acute partial right eye visual loss, constant, not improving, s/p recent right eye glaucoma surgery 2 weeks ago. In ED, Neuro consulted Dr. Muro, likely CVA, MRI MRA for tomorrow. ASA and Xarelto, hold Plavix, continue Statin. HD stable, no new changes. CVA - R eye deficit: L side visual field - dysarthria is at baseline since last CVA one year ago - discussed with Neuro Dr. Muro will continue Xarelto, ASA, HOLD Plavix, cont Statin - MRI MRA for tomorrow L eye blind - stable AFIB - cont Xarelto, lopressor HTN - cont lopressor CKD - cont Phoslo IDDM - cont insulin, accuchecks Glaucoma - cont drops Gout - cont Allopurinol VTE pt on Xarelto, ASA for CVA
[2018-02-19] MEDS ORDERED: Latanoprost 0.005% Opht SOUTION OD SCH (22:00)
[2018-02-20] MEDS: Sodium Chloride 0.9% 1,000 ML IV SCH (04:00)
[2018-02-20] MEDS ORDERED: Calcium Acetate 667 MG Capsule PO SCH (07:30)
[2018-02-20] MEDS ORDERED: Ferrous fumarate/Vit C 65-25 MG TABLET.ER PO SCH (09:00)
[2018-02-20] MEDS ORDERED: Cholecalciferol 1,000 INTLU TAB PO SCH (09:00)
[2018-02-20] MEDS ORDERED: Insulin Detemir 100 Units/ml Inj SC SCH (09:00)
[2018-02-20] MEDS: Brimonidine 0.2% 50 DROP/5 ML BOTTLE OD SCH ×2 (09:05→13:18)
[2018-02-20] MEDS: Dorzolamide 2% Ophth Soln OD SCH ×2 (09:06→13:18)
--- NOTE | 2018-02-20 09:07 | RAD ---
HISTORY: Code Stroke COMPARISON: Chest radiograph dated 03/11/2017 FINDINGS: LUNGS: No active pulmonary disease. PLEURA: No significant pleural effusion identified, no pneumothorax apparent. CARDIOVASCULAR: Atherosclerotic aortic calcifications. Cardiomediastinal silhouette stably enlarged. OSSEOUS STRUCTURES: Unchanged. VISUALIZED UPPER ABDOMEN: Normal. OTHER FINDINGS: None. IMPRESSION: No active disease.
--- NOTE | 2018-02-20 11:18 | MRI ---
PROCEDURE: MRI BRAIN WITHOUT CONTRAST HISTORY: right visual deficit COMPARISON: Brain MRI 03/11/[address] 02/19/2018, both without contrast. TECHNIQUE: Multiplanar, multisequence MR images of the brain were obtained without intravenous contrast enhancement. FINDINGS: HEMORRHAGE: None DWI: No evidence of an acute or early subacute infarction. BRAIN PARENCHYMA: A large chronic lobar infarction of the left frontoparietal distribution is identified once again. No positive mass effect or edema. Bilateral thalamic chronic lacune infarcts are seen as well as of the right greater than left basal ganglia. Will area degeneration is seen at the right 6 cerebral peduncle as well as chronic microangiopathy in the leisa and right-sided chronic lacune. No suspicious extra-axial collection with remaining midline brain anatomy unremarkable. Except lobes appear unremarkable bilaterally. Diffuse cerebral atrophy chronic microangiopathy are reiterated. VENTRICLES: Unremarkable. No hydrocephalus. CRANIUM: Unremarkable. ORBITS: Grossly unremarkable. PARANASAL SINUSES/MASTOIDS: Clear VASCULAR SYSTEM: Skull base flow voids intact. OTHER FINDINGS: None. IMPRESSION: Chronic left frontal parietal infarct identified. No evidence to suggest an acute or subacute brain infarction at this time. Mobile chronic lacunes are seen at the bilateral basal ganglia and thalami as well as inferior right leisa.
--- NOTE | 2018-02-20 11:22 | CARD ---
APPROVED REPORT EKG Measurement Heart [id number] <Conclusion> Normal sinus rhythm Normal ECG
--- NOTE | 2018-02-20 11:23 | MRI ---
PROCEDURE: Magnetic Resonance Angiography Brain HISTORY: right visual deficit COMPARISON: None available. TECHNIQUE: 3D time of flight MR angiography of the intracranial arteries was performed. Rotating maximum intensity projection images were generated. FINDINGS: INTERNAL CAROTID ARTERIES: Unremarkable. The skull base, petrous, cavernous and supraclinoid segments are bilaterally widely patient. ANTERIOR CEREBRAL ARTERIES: There is a hypoplastic right A1 REBECCA segment. The left A1 and bilateral A2 segments are widely patent. Smaller distal branches unremarkable, as visualized. MIDDLE CEREBRAL ARTERIES: Unremarkable. M1 and M2 segments are widely patent. Perisylvian branches grossly symmetric. POSTERIOR CIRCULATION: Basilar Artery: Unremarkable. Distal Vertebral Arteries: Hypoplastic distal left vertebral artery is identified with the right distal vertebral artery are unremarkable. Posterior Cerebral Arteries: Unremarkable. Posterior Inferior Cerebellar Arteries: Unremarkable. ANEURYSM/ VASCULAR MALFORMATIONS: None. OTHER FINDINGS: None. IMPRESSION: No significant stenosis in MR angiography of the brain as discussed above. Hypoplastic right A1 REBECCA and distal left vertebral arteries are identified.
--- NOTE | 2018-02-20 11:45 | CP.PCM.DIS ---
Provider - Provider Date of Admission: 02/19/18 19:45 Attending physician: Jesenia Kwan DO Primary care physician: Dr. Almonte Consults: Neuro consult Time Spent in preparation of Discharge (in minutes): 15 Hospital Course - Lab Results Lab Results: Most Recent Lab Values WBC 6.1 K/uL (4.8-10.8) 02/19/18 18:05 RBC 3.93 Mil/uL (3.80-5.20) 02/19/18 18:05 Hgb 12.4 g/dL (12.0-16.0) 02/19/18 18:05 Hct 36.9 % (34.0-47.0) 02/19/18 18:05 MCV 93.9 fl (81.0-99.0) 02/19/18 18:05 MCH 31.6 pg (27.0-31.0) H 02/19/18 18:05 MCHC 33.6 g/dL (33.0-37.0) 02/19/18 18:05 RDW 14.6 % (11.5-14.5) H 02/19/18 18:05 Plt Count 188 K/uL (130-400) 02/19/18 18:05 MPV 8.9 fl (7.2-11.7) 02/19/18 18:05 Neut % (Auto) 56.0 % (50.0-75.0) 02/19/18 18:05 Lymph % (Auto) 31.5 % (20.0-40.0) 02/19/18 18:05 [place] % (Auto) 8.6 % (0.0-10.0) 02/19/18 18:05 Eos % (Auto) 2.8 % (0.0-4.0) 02/19/18 18:05 Baso % (Auto) 1.1 % (0.0-2.0) 02/19/18 18:05 Neut # (Auto) 3.4 K/uL (1.8-7.0) 02/19/18 18:05 Lymph # (Auto) 1.9 K/uL (1.0-4.3) 02/19/18 18:05 [place] # (Auto) 0.5 K/uL (0.0-0.8) 02/19/18 18:05 Eos # (Auto) 0.2 K/uL (0.0-0.7) 02/19/18 18:05 Baso # (Auto) 0.1 K/uL (0.0-0.2) 02/19/18 18:05 PT 11.2 Seconds (9.8-13.1) 02/19/18 18:05 INR 1.0 (0.9-1.2) 02/19/18 18:05 APTT 39.0 Seconds (25.6-37.1) H 02/19/18 18:05 Sodium 145 mmol/l (132-148) 02/19/18 18:05 Potassium 4.1 MMOL/L (3.6-5.0) 02/19/18 18:05 Chloride 103 mmol/L (98-107) 02/19/18 18:05 Carbon Dioxide 27 mmol/L (22-30) 02/19/18 18:05 Anion Gap 19 (10-20) 02/19/18 18:05 BUN 37 mg/dl (7-17) H 02/19/18 18:05 Creatinine 1.5 mg/dl (0.7-1.2) H 02/19/18 18:05 Est GFR ( Amer) 41 02/19/18 18:05 Est GFR (Non-Af Amer) 34 02/19/18 18:05 POC Glucose (mg/dL) 282 mg/dL (65-110) H 02/20/18 11:03 Random Glucose 115 mg/dL (65-105) H 02/19/18 18:05 Hemoglobin A1c 7.0 % (4.2-6.5) H 02/19/18 17:50 Calcium 9.8 mg/dL (8.4-10.2) 02/19/18 18:05 Total Bilirubin 0.5 mg/dl (0.2-1.3) 02/19/18 18:05 AST 35 U/L (14-36) 02/19/18 18:05 ALT 33 U/L (9-52) 02/19/18 18:05 Alkaline Phosphatase 63 U/L (38-126) 02/19/18 18:05 Troponin I < 0.0120 ng/mL (0.00-0.120) 05/14/18 18:05 Total Protein 7.3 G/DL (6.3-8.2) 02/19/18 18:05 Albumin 4.1 g/dL (3.5-5.0) 02/19/18 18:05 Globulin 3.2 gm/dL (2.2-3.9) 02/19/18 18:05 Albumin/Globulin Ratio 1.3 (1.0-2.1) 02/19/18 18:05 Triglycerides 94 mg/DL (0-149) 02/19/18 18:05 Cholesterol 113 mg/dL (0-199) 02/19/18 18:05 LDL Cholesterol Direct 32 mg/dL (0-129) 02/19/18 18:05 HDL Cholesterol 50 MG/DL (30-70) 02/19/18 18:05 - Hospital Course Hospital Course: 72 y/o F with PMH CVA,/TIA, HTN, PAD s/p bilateral balloon angioplasty, CKD stage III, IDDM,paroxysmal Afib on Xarelto, L eye blindness, patient of Dr. Lobito Almonte, presented to ED accompanied by daughter for a 3 day history of acute partial right eye visual loss, constant, not improving, s/p recent right eye glaucoma surgery 2 weeks ago. In ED, Neuro consulted Dr. Muro and recommended MRI and MRA to rule out CVA She was placed under observation in telemetry , continued on ASA, Xeralto, Statin and BP meds MRI head showed no new stroke , Chronic left frontal parietal infarct identified. No evidence to suggest an acute or subacute brain infarction at this time.Mobile chronic lacunes are seen at the bilateral basal ganglia and thalami as well as inferior right leisa. Patient had few episodes of elevated BP while in telemetry and Hydralazine 10 mg was given for better BP control.As per MD patient's BP usually is well controlled at home and asctually she has orthostathic Hypotension and is on Midodrine TID and was started on Fludrocortizone as well by her business line controller 1 month ago. At present she is feeling better , still with some cloudy vision. Most likely her visual changes are related top her glaucoma and recent eye surgery ao will recommend continuation of eye drops and follow upw uith her business intelligence reporting analyst . Recommend follow up with her PMD and business line controller for better assessment of her BP and management . Home BP monitoring recommended. Daughter will check her BP twice a day and keep a log to provide readings to her PMD.Will not change her Bp management on discharge Continue current management with ASa,xarelto, statin Will d/c patient home with daughter All results and plan of care discussed with patient and daughter who agree with plan DX 1.Right eye visual changes -- CVA ruled out .Unclear etiology. Patient had recent Glaucoma surgery 2 weeks ago. Most likely visual changes related to postop recovery with pressure changes . She was seen by her business intelligence reporting analyst recently and was found to have good progress post surgery. Recommend follow up with her Manager [employer] in few days Better BP control. 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 Continue eye drops and follow up with her business intelligence reporting analyst 7.IDDM - controlled 8.Gout 9.Hypertension -- labile . As above 10.Orthosthatic hypotension 11. PAD - on statin , ASa, Plavix Discharge Exam - Head Exam Head Exam: ATRAUMATIC, NORMOCEPHALIC - Eye Exam Additional comments: left eye blindness - ENT Exam ENT Exam: Mucous Membranes Moist, Normal Exam - Neck Exam Neck exam: Normal Inspection - Respiratory Exam Respiratory Exam: Clear to PA & Lateral, NORMAL BREATHING PATTERN. absent: Rhonchi, Wheezes, Respiratory Distress - Cardiovascular Exam Cardiovascular Exam: REGULAR RHYTHM. absent: JVD - GI/Abdominal Exam GI & Abdominal Exam: Normal Bowel Sounds, Soft. absent: Distended, Guarding, Rebound, Tenderness - Rectal Exam Rectal Exam: Deferred - Extremities Exam Extremities exam: normal inspection, pedal pulses present - Neurological Exam Neurological exam: Alert, Oriented x3 Additional comments: dysarthria - Psychiatric Exam Psychiatric exam: Normal Affect - Skin Skin Exam: Dry, Normal Color, Warm Discharge Plan - Follow Up Plan Condition: STABLE Disposition: HOME/ ROUTINE Patient education suggested?: Yes Instructions: Glaucoma (DC) Additional Instructions: follow up with pmd in 1 week follow up with opthalmologist in 1 week continue home meds and take blood pressure twice a day and record it. Referrals: Oz Almonte MD [Family Provider] -
[2018-02-20] MEDS ORDERED: Insulin Lispro (humaLOG) 100 Units/ml Inj SC SCH (12:00)
--- NOTE | 2018-02-20 12:24 | PQF GENQUE ---
Dr. Hughes, Please clarify the type of atrial fibrillation: if known:i.e >> Chronic >> Paroxysmal >> Permanent >> Persistent >> Other (please specify type) >> Clinically unable to determine >> Unknown H and P: dxs. include: AFIB - cont Xarelto, lopressor This form is a permanent part of the medical record Clarification of your documentation is requested to better reflect the severity of illness and intensity of treatment of your patient. Indicators present [] Specify: [] [] Specify: [] [] Specify: [] [] Specify: [] Location in the medical record that reflects the above clinical findings: [] Treatment Provided: [] PHYSICIAN'S RESPONSE Most likely Paroxysmal Afib since patient is in SR now Based on your medical judgment of the clinical indicators outlined above please clarify the following: [] Practitioner response [] If unable to determine, please check the box, sign and date. Present On Admission (POA) Indicator: [] Present at the time of admission [] Not present at the time of admission [] Clinically Undetermined In responding to this query, please exercise your independent professional judgment. The fact that a question is asked does not imply that any particular answer is desired or expected. Thank you for your clarification on this documentation. If you have any questions please call. * Thank you, Dee Augustin RN ext. #[phone] MTDD
[2018-02-20 15:45] VITALS: BP 137/63; PULSE 85; RESP 17; TEMP 97.6; O2SAT 99
== END 2018-02-20 16:30 | disposition home or self-care (01) | DRG 125 ==
LOC: H.ER 16:21 → H.ERHOLD 19:45 → H.TEL 22:56
PROVIDERS: ADMIT Student in an Organized Health Care Education/Training Program; ATTEND Student in an Organized Health Care Education/Training Program
DX: H53.8 Other visual disturbances (principal); H54.61 Unqualified visual loss, right eye, normal vision left eye; H54.62 Unqualified visual loss, left eye, normal vision right eye; E11.22 Type 2 diabetes mellitus with diabetic chronic kidney disease; E11.51 Type 2 diabetes mellitus with diabetic peripheral angiopathy without gangrene; E78.00 Pure hypercholesterolemia, unspecified; H40.9 Unspecified glaucoma; I12.9 Hypertensive chronic kidney disease with stage 1 through stage 4 chronic kidney disease, or unspecified chronic kidney disease; I48.0 Paroxysmal atrial fibrillation; I69.322 Dysarthria following cerebral infarction; J44.9 Chronic obstructive pulmonary disease, unspecified; M10.9 Gout, unspecified; N18.3 Chronic kidney disease, stage 3 (moderate); Z79.01 Long term (current) use of anticoagulants; Z79.4 Long term (current) use of insulin; Z87.891 Personal history of nicotine dependence; D64.9 Anemia, unspecified; Z79.899 Other long term (current) drug therapy; I95.1 Orthostatic hypotension; E11.39 Type 2 diabetes mellitus with other diabetic ophthalmic complication